=== PATIENT | male | born 1960 | race Caucasian/White ===

== ENCOUNTER → 2018-07-27 09:05 | Outpatient (CLI) | payer OTHER, SELFPAY ==
[2018-07-27 10:19] LABS: ALB/GLOB Ratio 1.1 RATIO (0.9-2.4); AST(SGOT) 31 U/L (15-37); Alanine Aminotransfer ALT/SGPT 38 U/L (16-61); Albumin, Serum 3.9 g/dL (3.2-5.0); Alkaline Phosphatase 55 U/L (45-117); BUN 21 mg/dL (7-18); BUN/Creat Ratio 19.6 RATIO (10-20); Calcium,Total 8.4 mg/dL (8.5-10.1); Cholesterol 184 mg/dL (200); Creatinine, Serum 1.07 mg/dL (0.70-1.30); EST Glomerular Filtration Rate 76 mL/min (>60); Est Glom Filt Rate - Afr Amer 92 mL/min (>60); Globulin 3.5 g/dL (2.2-4.2); Glucose 92 mg/dL (74-106); Protein, Total 7.4 g/dL (6.4-8.2); Triglycerides 94 mg/dL
[2018-07-27 10:20] LABS: Anion Gap 7 (5-15); Chloride 107 mmol/L (98-107); High Density Lipoprotein 46 mg/dL; Potassium 4.2 mmol/L (3.5-5.1); Sodium Level 140 mmol/L (136-145); Very Low Density Lipoprotein 19 mg/dL (5-40)
== END ==
PROVIDERS: Family Provider Internal Medicine; PCP Internal Medicine; Visit Provider Internal Medicine
DX: E78.2 Mixed hyperlipidemia (principal); Z12.5 Encounter for screening for malignant neoplasm of prostate
CPT/HCPCS: 36415; 80053; 80061; 84153; G0103

== ENCOUNTER → 2019-07-02 | Outpatient (CLI) | payer OTHER, SELFPAY ==
[2019-07-02 17:32] LABS: Absolute Lymphocyte Count 1.32 X10^3/uL (0.83-4.51); Basophil# 0.04 X10^3/uL; Basophil% 0.7 % (0-1); Eosinophil# 0.09 X10^3/uL; Eosinophils% 1.5 % (0-5); Hematocrit 42.5 % (40-54); Hemoglobin 14.4 g/dL (13.0-16.5); Lymphocyte # 1.32 X10^3/ul (4.0); Lymphocyte % 22.3 % (19-41); Mean Corp Hgb Conc 33.9 g/dL (32-36); Mean Corpuscular Volume 91.6 fL (80-94); Mean Platelet Vol. 11.8 fl (6.2-12.0); Monocyte% 8.4 % (0-10); NRBC Flagged by Analyzer 0 % (0-5); Neutrophil # 3.96 X10^3/uL (2.7-7.7); Neutrophil % 66.8 % (47-70); Platelet Count 212 K/mm3 (150-450); RBC Distribution Width CV 12.2 % (11.6-14.6); RBC Distribution Width SD 40.2 fl (35.1-43.9); Red Blood Count 4.64 M/mm3 (4.6-6.2); White Blood Count 5.9 K/mm3 (4.4-11.0)
[2019-07-02 18:15] LABS: Hemoglobin A1c 5.2 % (4.2-6.3)
[2019-07-02 18:18] LABS: Vitamin B12 458 pg/mL (211-911)
[2019-07-02 18:26] LABS: ALB/GLOB Ratio 1.3 RATIO (0.9-2.4); AST(SGOT) 26 U/L (15-37); Alanine Aminotransfer ALT/SGPT 39 U/L (16-61); Albumin, Serum 4.1 g/dL (3.2-5.0); Alkaline Phosphatase 61 U/L (45-117); Anion Gap 5 (5-15); BUN 20 mg/dL (7-18); BUN/Creat Ratio 20.2 RATIO (10-20); Calcium,Total 8.4 mg/dL (8.5-10.1); Chloride 108 mmol/L (98-107); Creatinine, Serum 0.99 mg/dL (0.70-1.30); EST Glomerular Filtration Rate 83 mL/min (>60); Est Glom Filt Rate - Afr Amer 100 mL/min (>60); Globulin 3.1 g/dL (2.2-4.2); Glucose 83 mg/dL (74-106); Potassium 4.1 mmol/L (3.5-5.1); Protein, Total 7.2 g/dL (6.4-8.2); Sodium Level 142 mmol/L (136-145); T4 Free Direct 0.83 ng/dL (0.76-1.46); Thyroid Stim Hormone (TSH) 1.21 uIU/mL (0.358-3.74)
== END | disposition home or self-care (01) ==
LOC: BFHLAB 15:28
PROVIDERS: Family Provider Internal Medicine; PCP Internal Medicine; Visit Provider Family Medicine
DX: R20.2 Paresthesia of skin (principal); R53.83 Other fatigue
CPT/HCPCS: 36415; 80053; 82607; 83036; 84439; 84443; 85025

== ENCOUNTER → 2021-01-07 08:03 | Outpatient (CLI) | payer SELFPAY ==
[2021-01-07 09:40] LABS: ALB/GLOB Ratio 1.2 RATIO (0.9-2.4); AST(SGOT) 25 U/L (15-37); Alanine Aminotransfer ALT/SGPT 44 U/L (16-61); Alkaline Phosphatase 67 U/L (45-117); Anion Gap 5 (5-15); BUN 17 mg/dL (7-18); BUN/Creat Ratio 16.5 RATIO (10-20); Calcium,Total 8.9 mg/dL (8.5-10.1); Chloride 106 mmol/L (98-107); Cholesterol 215 mg/dL (200); Creatinine, Serum 1.03 mg/dL (0.70-1.30); EST Glomerular Filtration Rate 79 mL/min (>60); Est Glom Filt Rate - Afr Amer 95 mL/min (>60); Globulin 3.4 g/dL (2.2-4.2); Glucose 101 mg/dL (74-106); High Density Lipoprotein 51 mg/dL; Protein, Total 7.4 g/dL (6.4-8.2); Sodium Level 140 mmol/L (136-145); Triglycerides 89 mg/dL; Very Low Density Lipoprotein 18 mg/dL (5-40)
== END ==
PROVIDERS: PCP Family Medicine; Visit Provider Family Medicine
DX: E78.5 Hyperlipidemia, unspecified (principal)
CPT/HCPCS: 36415; 80053; 80061

== ENCOUNTER 2021-01-27 09:46 | Outpatient (RCR) | payer MEDICARE, SELFPAY ==
[2021-01-27] MEDS: COVID-19 VACC, MRNA(PFIZER)/PF 30 MCG/0.3 ML SYRINGE IM (07:31)
[2021-02-17] MEDS: COVID-19 VACC, MRNA(PFIZER)/PF 30 MCG/0.3 ML SYRINGE IM (07:30)
== END 2021-01-27 23:59 ==
LOC: IMMUN 09:46
PROVIDERS: PCP Family Medicine; Visit Provider Family Medicine
DX: Z23 Encounter for immunization (principal)
CPT/HCPCS: 0001A; 0002A; 91300

== ENCOUNTER → 2021-03-11 | Outpatient (CLI) | payer SELFPAY ==
[2021-03-11 17:18] LABS: Body Fluid QC Type(s) BF6Q; CRYSTALS, BODY FLUID Other, see comment; Source- Body Fluid SYNOVIAL
[2021-03-14 13:34] LABS: Pathologist Review Reviewed
== END | disposition home or self-care (01) ==
LOC: LABSPEC 15:23
PROVIDERS: PCP Family Medicine; Referring Provider Family Medicine; Visit Provider Family Medicine
DX: M25.462 Effusion, left knee (principal)
CPT/HCPCS: 87070; 87075; 87205; 89060

== ENCOUNTER → 2021-05-26 09:12 | Outpatient (CLI) | payer SELFPAY ==
--- NOTE | 2021-05-26 09:14 | EKG12_ITS ---
Test Reason : PRE OP Blood Pressure : / mmHG Vent. Rate : 076 BPM Atrial Rate : 076 BPM P-R Int : 150 ms QRS Dur : 082 ms QT Int : 358 ms P-R-T Axes : 038 002 033 degrees QTc Int : 402 ms Normal sinus rhythm Normal ECG Confirmed by LEXI HARRELL, MARIANO ([id number]), photographic editor CANDACE LOMAS ([id number]) on 05/27/2021 9:28:16 AM Referred By: Pan Chambers Confirmed By:AMMY ELLIOTT MD
[2021-05-26 10:04] LABS: Hematocrit 41.1 % (40-54); Hemoglobin 13.5 g/dL (13.0-16.5); Mean Corp Hgb Conc 32.8 g/dL (32-36); Mean Corpuscular Hgb 30.4 pg (27.0-32.0); Mean Corpuscular Volume 92.6 fL (80-94); Mean Platelet Vol. 10.7 fl (6.2-12.0); Platelet Count 245 K/mm3 (150-450); RBC Distribution Width CV 12.5 % (11.6-14.6); RBC Distribution Width SD 42.7 fl (35.1-43.9); Red Blood Count 4.44 M/mm3 (4.6-6.2); White Blood Count 3.7 K/mm3 (4.4-11.0)
[2021-05-26 10:40] LABS: Anion Gap 6 (5-15); BUN 13 mg/dL (7-18); Calcium,Total 8.7 mg/dL (8.5-10.1); Chloride 105 mmol/L (98-107); EST Glomerular Filtration Rate 82 mL/min (>60); Est Glom Filt Rate - Afr Amer 99 mL/min (>60); Glucose 95 mg/dL (74-106); Potassium 3.7 mmol/L (3.5-5.1); Sodium Level 139 mmol/L (136-145)
== END ==
PROVIDERS: PCP Family Medicine; Referring Provider Physician Assistant; Visit Provider Physician Assistant
DX: Z01.818 Encounter for other preprocedural examination (principal)
CPT/HCPCS: 36415; 80048; 85027; 93005

== ENCOUNTER → 2022-03-31 | Outpatient (CLI) | payer SELFPAY ==
[2022-03-31 15:46] LABS: ALB/GLOB Ratio 1.5 RATIO (0.9-2.4); AST(SGOT) 27 U/L (15-37); Alanine Aminotransfer ALT/SGPT 43 U/L (16-61); Albumin, Serum 4.4 g/dL (3.2-5.0); Alkaline Phosphatase 66 U/L (45-117); Anion Gap 4 (5-15); BUN 14 mg/dL (7-18); BUN/Creat Ratio 16.5 RATIO (10-20); Calcium,Total 9.1 mg/dL (8.5-10.1); Chloride 106 mmol/L (98-107); Cholesterol 180 mg/dL (200); Creatinine, Serum 0.85 mg/dL (0.70-1.30); EST Glomerular Filtration Rate 98 mL/min (>60); Est Glom Filt Rate - Afr Amer 119 mL/min (>60); Glucose 95 mg/dL (74-106); High Density Lipoprotein 70 mg/dL; Potassium 4.1 mmol/L (3.5-5.1); Protein, Total 7.4 g/dL (6.4-8.2); Sodium Level 138 mmol/L (136-145); Triglycerides 71 mg/dL; Very Low Density Lipoprotein 14 mg/dL (5-40)
== END | disposition home or self-care (01) ==
PROVIDERS: PCP Family Medicine; Referring Provider Family Medicine; Visit Provider Family Medicine
DX: E78.5 Hyperlipidemia, unspecified (principal)
CPT/HCPCS: 36415; 80053; 80061

== ENCOUNTER 2022-10-14 11:10 | Emergency (ER) | payer MEDICAID, SELFPAY ==
[2022-10-14 11:11] VITALS: BP 153/133; PULSE 100; RESP 16; TEMP 36.4; O2SAT 99; BMI 21.7
[2022-10-14 11:15] VITALS: BP 179/99; PULSE 100; RESP 18; O2SAT 99
--- NOTE | 2022-10-14 11:17 | EKG12_ITS ---
Test Reason : CP Blood Pressure : / mmHG Vent. Rate : 098 BPM Atrial Rate : 098 BPM P-R Int : 152 ms QRS Dur : 084 ms QT Int : 340 ms P-R-T Axes : 049 003 051 degrees QTc Int : 434 ms Normal sinus rhythm Normal ECG Confirmed by KARLY HARRELL, GERHARD ([id number]), health editor CANDACE LOMSA ([id number]) on 10/17/2022 12:19:25 PM Referred By: BRAXTON Confirmed By:GERHARD BRANDT MD
--- NOTE | 2022-10-14 11:17 | RAD_ITS ---
EXAM: XR CHEST, 1 VIEW CLINICAL INDICATION: chest pain TECHNIQUE: Frontal view of the chest. This report was created using [employer] report generation technology. COMPARISON: None. FINDINGS: LUNGS AND PLEURAL SPACES: Unremarkable. No consolidation or edema. No pneumothorax. No effusion. HEART: Unremarkable. Cardiac silhouette not enlarged. MEDIASTINUM: Central airways and mediastinal contour are unremarkable. BONES/JOINTS: Unremarkable. SOFT TISSUES: Unremarkable. RAD/Chest 1 View (Portable) IMPRESSION: No radiographic evidence of acute cardiopulmonary disease. Electronically Signed: Ok Ulrich MD at 11:57 EST ,
--- NOTE | 2022-10-14 11:17 | ED.VIS.CHEST ---
HPI History of Present Illness Chief Complaint: Chest Pain Informant: patient Narrative Narrative: 62-year-old male presenting to the emergency department for the evaluation of chest pain. He describes a pressure in his chest. Its been more pronounced over the past 3 days and when it comes tends to stay for hours. He is currently experiencing it. He notes that his brother October 06 of a heart attack and and that is when he started to notice this but at first he thought it was probably indigestion but now does not know. [facility] Medical History (Updated 10/14/22 @ 14:[address] Mick Oro DO) High cholesterol Torn meniscus Home Medications celecoxib 200 mg capsule 200 mg PO BID 10/14/22 [History Last Taken Unknown] gabapentin 100 mg capsule 100 mg PO BID 10/14/22 [History Last Taken Unknown] lisinopril 10 mg tablet 10 mg PO DAILY #30 tabs 10/14/22 [Rx Last Taken Unknown] pantoprazole 40 mg tablet,delayed release (Protonix) 40 mg PO DAILY #30 tabs 10/14/22 [Rx Last Taken Unknown] simvastatin 20 mg tablet 20 mg PO QHS 10/14/22 [History Last Taken Unknown] Allergy/AdvReac Type Severity Reaction Status Date / Time Penicillins [PCN] Allergy Rash Verified 10/14/22 11:11 Family History (Updated 10/14/22 @ 11:[address] Mick Oro DO) Other CAD (coronary artery disease) Diabetes Heart disease Hypertension Sudden cardiac Social History Smoking Status: Former smoker ROS ROS ED Constitutional Constitutional ED: Denies chills or weight loss Eyes Eyes: Denies change in vision or diplopia ENT ENT ED: Denies ear pain, rhinorrhea or sore throat Cardiovascular Cardiovascular: Reports as per HPI and chest pain; Denies orthopnea, palpitations or racing heartbeat Respiratory/Chest Respiratory/Chest: Denies cough, dyspnea or orthopnea Gastrointestinal Gastrointestinal: Denies abdominal pain, diarrhea, nausea or vomiting Genitourinary Genitourinary ED: Denies dysuria, hematuria or urinary frequency Musculoskeletal Musculoskeletal: Denies arthralgias or myalgias Integumentary Denies abscess or rash Neurologic Neurologic: Denies headache(s) or weakness Psychiatric Psychiatric: Denies anxiety, depression, suicidal ideation or suicidal thoughts Endocrine Endocrinology: Denies polydipsia, polyphagia or polyuria Allergic/Immunologic Allergic/Immunologic ED: Denies mouth swelling, tongue swelling or urticaria EXAM Physical Exam Const Vital Signs: 10/14/22 11:11 10/14/22 11:15 10/14/22 11:16 Temperature 97.5 F L Temperature Source Temporal Pulse Rate 100 100 Respiratory Rate 16 18 Respiratory Effort Normal Non-Labored Blood Pressure 153/133 H 179/99 H Blood Pressure Mean 139 125 Pulse Ox 99 99 Oxygen Delivery Method Room Air Room Air 10/14/22 12:12 10/14/22 14:07 Temperature Temperature Source Pulse Rate 84 76 Respiratory Rate 12 16 Respiratory Effort Blood Pressure 153/111 H 145/96 H Blood Pressure Mean 125 112 Pulse Ox 98 98 Oxygen Delivery Method Room Air Room Air Positive well nourished and well developed General Appearance ED: well developed HEENT Reports normocephalic, head/scalp atraumatic and moist mucous membranes Eyes PERRL and EOMs intact bilaterally Neck no lymphadenopathy, supple and no JVD Resp normal respiratory effort and clear to auscultation bilaterally Cardio regular rate, regular rhythm and no murmurs GI normal to inspection, nondistended, normoactive bowel sounds and non-tender Palpation: soft Back/Spine no CVA tenderness and normal ROM Extremity normal to inspection General Extremety ED: Negative for edema General Extremity: Negative for edema Neuro oriented x3 and CN's II-XII intact bilaterally Sensorium / Orientation: alert Motor Exam: strength 5/5 throughout Psych mental status grossly normal Mood & Affect: Negative for depressed or tearful Skin no rashes or lesions noted and no wounds Heart Score History: Moderately Suspicious ECG: Normal Age: >45 - <65 years Risk Factors: 1 or 2 Risk Factors Troponin: </= Normal Limit Score: 3 MDM MDM MDM Narrative Medical decision making narrative: My interpretation of the chest x-ray is no acute process. White count is 6.2 with a hemoglobin 14.8. D-dimer is negative. Troponin is negative BMP is normal except for glucose of 117. He is remained in a normal sinus rhythm on the monitor. His EKG is no ACS finding. And that is obtained while having symptoms. Delta troponin is 6. He describes it as a pressure that gets burning at times and I wonder if this could be esophagitis today is very reasonable would put him on some Protonix. His blood pressures he tells me typically 150s to 160s in the mornings 130s to 140s in the afternoon. He is aware, start him on some lisinopril. The patient needs to follow-up with his primary care doctor to discuss further cardiac testing return if worsening Lab Data Attestation: I reviewed the patient's lab results. Labs: Laboratory Results - last 24 hr 10/14/22 10/14/22 10/14/22 11:15 11:15 11:15 WBC 6.2 RBC 4.80 Hgb 14.8 Hct 44.3 MCV 92.3 MCH 30.8 MCHC 33.4 RDW Std Deviation 38.9 RDW Coeff of Harinder 11.5 L Plt Count 277 MPV 10.5 Immature Gran % (Auto) 0.200 Neut % (Auto) 68.5 Lymph % (Auto) 20.0 Kemper % (Auto) 10.2 H Eos % (Auto) 0.5 Baso % (Auto) 0.6 Absolute Neuts (auto) 4.3 Absolute Lymphs (auto) 1.24 Nucleated RBC % 0 D-Dimer Quant (PE/DVT) < 0.27 L Sodium 140 Potassium 3.6 Chloride 104 Carbon Dioxide 31.0 Anion Gap 5 BUN 16 Creatinine 0.90 Estim Creat Clear Calc 87.16 Est GFR (MDRD) Af Amer 110 Est GFR (MDRD) Non-Af 91 BUN/Creatinine Ratio 17.7 Glucose 117 H Calcium 8.9 Troponin I High Sens 5 10/14/22 13:15 WBC RBC Hgb Hct MCV MCH MCHC RDW Std Deviation RDW Coeff of Harinder Plt Count MPV Immature Gran % (Auto) Neut % (Auto) Lymph % (Auto) Kemper % (Auto) Eos % (Auto) Baso % (Auto) Absolute Neuts (auto) Absolute Lymphs (auto) Nucleated RBC % D-Dimer Quant (PE/DVT) Sodium Potassium Chloride Carbon Dioxide Anion Gap BUN Creatinine Estim Creat Clear Calc Est GFR (MDRD) Af Amer Est GFR (MDRD) Non-Af BUN/Creatinine Ratio Glucose Calcium Troponin I High Sens 6 Radiography Diagnostic Testing: Clinical Impression(s) from Imaging Studies Chest X-Ray 10/14/22 11:17 IMPRESSION: No radiographic evidence of acute cardiopulmonary disease. Electronically Signed: Ok Ulrich MD at 11:57 EST , EKG Initial EKG: Attestation: I personally reviewed and interpreted this EKG as follows: Comments: Normal sinus rhythm ventricular rate of 98 bpm Discharge Plan Triage Chief Complaint: Chest Pain ED Provider: Mick Oro Dx/Rx/DC Orders Clinical Impression: Chest pain, Hypertension Instructions: ED Chest Pain, Uncertain Cause Prescriptions: New lisinopril 10 mg tablet 10 mg PO DAILY Qty: 30 0RF pantoprazole [Protonix] 40 mg tablet,delayed release (DR/EC) 40 mg PO DAILY Qty: 30 0RF No Action celecoxib 200 mg capsule 200 mg PO BID Label Comments: TAKE 1 CAPSULE BY MOUTH EVERY DAY simvastatin 20 mg tablet 20 mg PO QHS Label Comments: TAKE 1 TABLET BY MOUTH EVERY DAY gabapentin 100 mg capsule 100 mg PO BID Label Comments: TAKE 1 CAPSULE BY MOUTH up to THREE TIMES DAILY Primary Care Provider: Malachi Dumont Referrals: Malachi Dumont MD [Primary Care Provider] - As soon as possible (Please discuss cardiac stress testing with your doctor) Activity Restrictions/Additional Instructions: As we did we will be placing you on a low-dose blood pressure medication and a antacid. Please continue to monitor your blood pressure and take those results with you to your doctors appointment. Disposition Disposition: Home, Self Care
[2022-10-14] MEDS: Aspirin 81 MG TAB.CHEW 324 MG PO (11:24)
[2022-10-14 11:29] LABS: Absolute Lymphocyte Count 1.24 X10^3/uL (0.83-4.51); Absolute Neutrophil Count 4.3 X10^3/uL (2.0-7.7); Basophil# 0.04 X10^3/uL; Basophil% 0.6 % (0-1); Eosinophil# 0.03 X10^3/uL; Eosinophils% 0.5 % (0-5); Hematocrit 44.3 % (40-54); Hemoglobin 14.8 g/dL (13.0-16.5); Lymphocyte # 1.24 X10^3/ul (0.83-4.51); Mean Corp Hgb Conc 33.4 g/dL (32-36); Mean Corpuscular Hgb 30.8 pg (27.0-32.0); Mean Corpuscular Volume 92.3 fL (80-94); Mean Platelet Vol. 10.5 fl (6.2-12.0); Monocyte# 0.63 X10^3/uL; Monocyte% 10.2 % (0-10); NRBC Flagged by Analyzer 0 % (0-5); Neutrophil # 4.25 X10^3/uL (2.7-7.7); Neutrophil % 68.5 % (47-70); Platelet Count 277 K/mm3 (150-450); RBC Distribution Width CV 11.5 % (11.6-14.6); RBC Distribution Width SD 38.9 fl (35.1-43.9); White Blood Count 6.2 K/mm3 (4.4-11.0)
[2022-10-14 11:48] LABS: D-Dimer Quantitative (DVT/PE) < 0.27 FEU/ug/m (0.27-0.49)
[2022-10-14 11:50] LABS: Anion Gap 5 (5-15); BUN 16 mg/dL (7-18); BUN/Creat Ratio 17.7 RATIO (10-20); Calcium,Total 8.9 mg/dL (8.5-10.1); Chloride 104 mmol/L (98-107); EST Glomerular Filtration Rate 91 mL/min (>60); Est Glom Filt Rate - Afr Amer 110 mL/min (>60); Estimated Creatinine Clearance 87.16 ml/min; Glucose 117 mg/dL (74-106); Potassium 3.6 mmol/L (3.5-5.1); Sodium Level 140 mmol/L (136-145); Troponin-I HS (w/2H Reflex) 5 pg/mL (3.0-78.0)
[2022-10-14 12:12] VITALS: BP 153/111; PULSE 84; RESP 12; O2SAT 98
[2022-10-14 13:26] LABS: Reflex Troponin-HS? (from REC) Y
[2022-10-14 14:07] VITALS: BP 145/96; PULSE 76; RESP 16; O2SAT 98
[2022-10-14 14:16] LABS: Troponin-I HS 6 pg/mL (3.0-78.0)
== END 2022-10-14 14:42 | disposition home or self-care (01) ==
PROVIDERS: Emergency Provider Emergency Medicine; PCP Family Medicine; Visit Provider Emergency Medicine
DX: R07.9 Chest pain, unspecified (principal); I10 Essential (primary) hypertension; Z87.891 Personal history of nicotine dependence; E78.00 Pure hypercholesterolemia, unspecified; Z79.899 Other long term (current) drug therapy
CPT/HCPCS: 71045; 80048; 84484; 85025; 85379; 93005; 99285; A4216

== ENCOUNTER → 2022-11-01 | Outpatient (CLI) | payer MEDICAID, SELFPAY ==
--- NOTE | 2022-11-01 11:42 | STRESSREP_ITS ---
Stress Test Report Pharmacologic myocardial perfusion stress test. 62-year-old man with a history of chest pain Resting EKG demonstrates sinus rhythm with a rate of 75 bpm. Resting blood pressure is 134/78 mmHg. 0.4 mg of regadenoson was infused per usual protocol followed by rapid intravenous saline flush injection. Continuous EKG monitoring was performed. The maximum heart rate was 104 bpm which was 65% of max impacted heart rate the maximum workload was 1 metabolic equivalent. At rest there were no ST or T wave changes noted to suggest ischemia and at peak infusion nonspecific ST changes were noted with did not meet the criteria for ischemia. Occasional premature ventricular complexes noted. No clinical angina is noted. The final blood pressure was 124/72 mmHg. Myocardial perfusion protocol. 11.5 mCi of technetium 99m sestamibi was injected at rest. 0.4 mg of regadenoson was infused per usual protocol. At peak infusion 35.2 mCi of te chnetium 99m sestamibi was injected stress images were obtained stress and rest images were reconstructed and compared in the short axis vertical long and horizontal long axis. Gated images were also obtained. Perfusion SPECT analysis: Review of the stress images demonstrate normal uptake of tracer noted in all areas of the myocardium. The resting images similar demonstrated normal uptake of tracer noted in all areas of the myocardium. No areas of reversibility are noted to suggest ischemia and no previous infarct is noted. Gated SPECT analysis: The gated ejection fraction is 64. Conclusion: Normal pharmacologic myocardial perfusion stress test. Preserved ejection fraction.
== END | disposition home or self-care (01) ==
LOC: CVS 06:14
PROVIDERS: PCP Family Medicine; Referring Provider Family Medicine; Visit Provider Family Medicine
DX: R07.9 Chest pain, unspecified (principal)
CPT/HCPCS: 78452; 93017; A9500; A4216; J2785

== ENCOUNTER → 2022-11-24 | Outpatient (CLI) | payer MEDICAID, SELFPAY ==
[2022-11-24 15:43] LABS: Anion Gap 2 (5-15); BUN 16 mg/dL (7-18); BUN/Creat Ratio 17.3 RATIO (10-20); Calcium,Total 9.2 mg/dL (8.5-10.1); Chloride 106 mmol/L (98-107); Creatinine, Serum 0.92 mg/dL (0.70-1.30); EST Glomerular Filtration Rate 89 mL/min (>60); Est Glom Filt Rate - Afr Amer 107 mL/min (>60); Glucose 99 mg/dL (74-106); Potassium 4.2 mmol/L (3.5-5.1); Sodium Level 139 mmol/L (136-145)
== END | disposition home or self-care (01) ==
LOC: LAB 14:41
PROVIDERS: PCP Family Medicine; Visit Provider Internal Medicine Cardiovascular Disease
DX: Z01.810 Encounter for preprocedural cardiovascular examination (principal); R07.9 Chest pain, unspecified; E78.2 Mixed hyperlipidemia; I10 Essential (primary) hypertension
CPT/HCPCS: 36415; 80048

== ENCOUNTER → 2022-11-28 | Outpatient (CLI) | payer MEDICAID, SELFPAY ==
--- NOTE | 2022-11-28 13:45 | ECHOD_ITS ---
Reason For Study: Chest Pain Procedure This was a 2D Doppler, Color Flow transthoracic echocardiogram. The exam was of adequate technical quality. Exam performed in department. Left Ventricle Normal LV size. Left ventricular systolic function is normal. The estimated ejection fraction is 65 %. No evidence for diastolic dysfunction. No regional wall motion abnormalities noted. Right Ventricle Normal RV size. Normal systolic function. Atria Normal left atrium. Normal right atrium. No doppler evidence for ASD. Mitral Valve There is no mitral annular calcification. Mild diffuse mitral valve thickening. Equivocal mitral valve prolapse. Mild (1+) eccentric mitral valve insufficiency. Tricuspid Valve Normal tricuspid valve. Mild tricuspid valve insufficiency. Right ventricular systolic pressure estimated to be 22 mmHg. Aortic Valve Trisinus/trileaflet aortic valve. Normal aortic valve. Pulmonic Valve The pulmonic valve is not well visualized. Great Vessels Normal sized aortic root. Pericardium/Pleural No pericardial effusion. MMode/2D Measurements & Calculations LVIDd: 4.3 cm IVSd: 0.93 cm Ao root diam: 3.7 cm LVIDs: 2.7 cm LVPWd: 1.0 cm LA dimension: 2.9 cm RVDd: 4.1 cm FS: 37.2 % LAV(MOD-bp): 39.1 ml LA A4 area: 12.1 cm2 RA A4 area: 12.5 cm2 LAV(MOD-bp) Indexed: 20.8 ml/m2 LAV(MOD-sp2): 45.7 ml LAV(MOD-sp4): 28.8 ml Time Measurements MV dec time: 0.24 sec Doppler Measurements & Calculations MV E max chris: 44.4 cm/sec Lat Peak E' Chris: 9.0 cm/sec Med Peak E' Chris: 5.8 cm/sec MV A max chris: 65.4 cm/sec E/E' lat: 4.9 E/E' med: 7.7 MV E/A: 0.68 MV V2 max: 73.2 cm/sec MV P1/2t max chris: 50.4 cm/sec Ao V2 max: 130.9 cm/sec MV max P.1 mmHg MV P1/2t: 67.3 msec Ao max P.9 mmHg MV V2 mean: 40.5 cm/sec MV dec slope: 219.6 cm/sec2 Ao V2 mean: 94.7 cm/sec MV mean P.77 mmHg MVA(P1/2t): 3.3 cm2 Ao mean P.0 mmHg MV V2 VTI: 16.0 cm Ao V2 VTI: 23.5 cm AV (velocity ratio): 0.76 LV V1 max: 107.7 cm/sec PA V2 max: 90.2 cm/sec TR max chris: 215.9 cm/sec LV V1 max P.6 mmHg PA V2 mean: 61.8 cm/sec TR max P.7 mmHg LV V1 mean P.6 mmHg LV V1 mean: 76.7 cm/sec LV V1 VTI: 17.9 cm ECHO/Echo Complete Interpretation Summary Left ventricular systolic function is normal. The estimated ejection fraction is 65 %. Mild diffuse mitral valve thickening. Equivocal mitral valve prolapse. Mild (1+) eccentric mitral valve insufficiency. Mild tricuspid valve insufficiency. Right ventricular systolic pressure estimated to be 22 mmHg. No evidence for diastolic dysfunction. Ordering Physician: Edwin Canas Referring Physician: Edwin Canas Performed By: Dino Henderson RCS
== END | disposition home or self-care (01) ==
LOC: CVS 13:44
PROVIDERS: PCP Family Medicine; Referring Provider Internal Medicine Cardiovascular Disease; Visit Provider Internal Medicine Cardiovascular Disease
DX: Z01.810 Encounter for preprocedural cardiovascular examination (principal); R07.9 Chest pain, unspecified; E78.2 Mixed hyperlipidemia; I10 Essential (primary) hypertension
CPT/HCPCS: 93306

== ENCOUNTER → 2022-12-01 | Outpatient (CLI) | payer MEDICAID, SELFPAY ==
--- NOTE | 2022-12-01 13:20 | CT_ITS ---
STUDY: CT CHEST WITHOUT CONTRAST. Cardiac over read examination. REASON FOR EXAM: Male, 62 years old. CP RADIATION DOSAGE (If Supplied By Facility): CTDIvol = ( 25.62 ) mGy, DLP = ( 1559.30 ) mGycm TECHNIQUE: Transaxial imaging was performed without the administration of intravenous contrast material. Individualized dose optimization techniques were used for this CT. COMPARISON: No relevant priors. FINDINGS: CHEST The lungs are normal. There is no demonstrated pleural abnormality. There are calcifications of the coronary arteries. Normal mediastinum. Normal hilar regions. Normal unenhanced pulmonary arteries. Normal aorta arch and descending thoracic aorta. Normal osseous structures. There is no demonstrated abnormality of the visualized upper abdomen. IMPRESSION: Coronary artery calcification. The visualized lungs are unremarkable. Electronically Signed: Jose Martinez MD at 15:11 RUST , STUDY: CT CHEST WITHOUT CONTRAST. Cardiac or renal examination. REASON FOR EXAM: Male, 62 years old. CP RADIATION DOSAGE (If Supplied By Facility): CTDIvol = ( 25.62 ) mGy, DLP = ( 1559.30 ) mGycm TECHNIQUE: Transaxial imaging was performed without the administration of intravenous contrast material. Individualized dose optimization techniques were used for this CT. COMPARISON: No relevant priors. FINDINGS: CHEST The lungs are normal. There is no demonstrated pleural abnormality. There are calcifications of the coronary arteries. Normal mediastinum. Normal hilar regions. Normal unenhanced pulmonary arteries. Normal aorta arch and descending thoracic aorta. Normal osseous structures. There is no demonstrated abnormality of the visualized upper abdomen. CT/Limited Chest CT Cardiac Only IMPRESSION: Coronary artery calcification. The lungs are clear. Electronically Signed: Jose Martinez MD at 15:13 EST ,
[2022-12-01 14:01] VITALS: BP 127/84; PULSE 60; RESP 14; O2SAT 100; BMI 21.3
[2022-12-01 14:20] VITALS: BP 127/84; PULSE 63
[2022-12-01] MEDS: Nitroglycerin SL (ED/IMG/CATH) 0.4 MG TABLET SL (14:20)
[2022-12-01 14:24] VITALS: BP 116/76; PULSE 71; RESP 14; O2SAT 97
--- NOTE | 2022-12-01 17:17 | CA.SCORE ---
Calcium Scoring Date of Study:: 12/01/22 Indications Indications: Chest Pain Coronary Calcium Scoring: High-resolution Computed Tomographic imaging of the chest was performed on 12/01/2022 with particular attention paid to the coronary arteries. Images from the examination were analyzed for the presence and extent of coronary artery calcification , using coronary calcium quantification software. The patient tolerated the procedure well and there were no complications. The results of the coronary calcification analysis are provided below. Findings Coronary Artery Left Main (LM): 3 Left Anterior Descending (LAD): 3.38 Left Circumflex (LCX): 2.63 Right Coronary Artery (RCA): 0 Total Agatston Score: 9.01 Percentile Ranking: According to prepublished reference tables less than 10% of patients of the same gender and/or similar age had the same and/or lower scores. Calcium Scoring Interpretation: 0 No identifiable atherosclerotic plaque. Very low cardiovascular disease risk. <5% chance of presence coronary artery disease A Negative Examination 1-10 Minimal Plaque burden. Significant coronary artery disease very unlikely. 11-100 Mild plaque burden. Likely mild or minimal coronary atherosclerosis. 101-400 Moderate plaque burden Moderate non-obstructive coronary artery disease highly likely. Over 400 Extensive plaque burden. High likelihood of at least one significant coronary stenosis (>50% diameter) Calcium Score: 1 -10 Significant coronary artery disease very unlikely Conclusion: Continue cardiovascular risk factor evaluation and care as deemed appropriate. This note was generated using a voice recognition system and there may be incorrect words, spelling or punctuation that were not noted when reviewing the office note prior to saving.
--- NOTE | 2022-12-01 17:20 | CCTA.WCONT ---
CCTA w/Cont Coronary Arteries Date of Study:: 12/01/22 Chest Pain: Pre Operative Evaluation Consent:: Per Patient High-resolution Computed Tomographic imaging of the chest was performed on 12/01/2022 with particular attention paid to the coronary arteries. Images from the examination were analyzed for the presence and extent of coronary artery calcification , using coronary calcium quantification software and for the extent of any underlying atherosclerotic coronary artery disease. The patient tolerated the procedure well and there were no complications. The results of the coronary calcification analysis are provided below.? LEFT MAIN CORONARY ARTERY: The left main coronary artery is a large vessel giving rise to the left anterior descending coronary artery, a left circumflex coronary artery, and what appears to be an intermediate ramus coronary artery. The left main coronary artery is patent and demonstrates mild eccentric nonobstructive calcified plaque. Otherwise, the left main coronary artery appears to be angiographically within normal limits LEFT ANTERIOR DESCENDING CORONARY ARTERY: The left anterior descending is a large vessel that courses to the LV apex. It demonstrates mid mild eccentric nonobstructive calcified plaque. Otherwise, the left anterior descending coronary artery appears to be angiographically within normal limits. LEFT CIRCUMFLEX CORONARY ARTERY: The left circumflex coronary artery is a moderate sized vessel giving rise to an OM system. The left circumflex coronary artery appears to be angiographically within normal limits RIGHT CORONARY ARTERY: The right coronary artery is a large vessel which appears to give rise to a right PDA system. The right coronary artery appears to be angiographically within normal limits. THORACIC AORTA: The thoracic aorta demonstrates the appearance of mild eccentric nonobstructive calcified plaque in the area the aortic root and the descending thoracic aorta. PULMONARY ARTERY: The main pulmonary artery and proximal portions of the right and left pulmonary artery appear to be patent with no obvious filling defects. LEFT ATRIUM/APPENDAGE: The left atrial appendage appears to be patent with no obvious filling defects MITRAL VALVE: The mitral valve appears to be bileaflet structure. AORTIC VALVE: The aortic valve appears to be a trileaflet structure. LEFT VENTRICLE: The left ventricle appears to demonstrate grossly normal left ventricular size, wall motion, and systolic function. The left ventricular ejection fraction was calculated at 49%. CORONARY CALCIUM SCORE: A coronary calcium score was obtained and reported at 9.01. This is compatible with minimal plaque burden and the likelihood of significant underlying CAD being considered unlikely. This note was generated using a voice recognition system and there may be incorrect words, spelling or punctuation that were not noted when reviewing the office note prior to saving.
== END | disposition home or self-care (01) ==
LOC: CT 13:18
PROVIDERS: PCP Family Medicine; Referring Provider Internal Medicine Cardiovascular Disease; Visit Provider Internal Medicine Cardiovascular Disease
DX: Z01.818 Encounter for other preprocedural examination (principal); R07.9 Chest pain, unspecified; E78.2 Mixed hyperlipidemia; I10 Essential (primary) hypertension
CPT/HCPCS: 75571; 75574; 76380; Q9967; A4216

== ENCOUNTER → 2023-02-02 | Outpatient (CLI) | payer BC, SELFPAY ==
--- NOTE | 2023-02-02 10:46 | ART_ITS ---
Reason For Study: Leg pain Procedure A bilateral lower extremity continuous wave Doppler with analog waveform analysis,segmental pressures,and ankle brachial indexes without exercise. Left Segmental Pressures Left brachial= 144mmHg. Left posterior tibial artery = 162mmHg. Left dorsalis pedis artery = 155mmHg. The left dorsalis pedis waveforms are triphasic. The left posterior tibial artery waveforms are triphasic. Right Segmental Pressures Right brachial= 149mmHg. Right posterior tibial artery = 168mmHg. Right dorsalis pedis artery = 159mmHg. The right dorsalis pedis waveforms are triphasic. The right posterior tibial artery waveforms are triphasic. Indices The right ankle brachial index by the dorsalis pedis is 1.07. The right ankle brachial index by the posterior tibial artery is 1.13. The left ankle brachial index by the dorsalis pedis is 1.04. The left ankle brachial index by the posterior tibial artery is 1.09. VL/Lower Ext Art Exam w/o Exercis Interpretation Summary Right ANGELI 1.13, normal. Doppler/PVR waveforms of the right leg normal at rest. Left ANGELI 1.09, normal. Doppler/PVR waveforms of the left leg normal at rest. Ordering Physician: Edwin Canas Performed By: Ana Salcido RVT
== END | disposition home or self-care (01) ==
PROVIDERS: Referring Provider Internal Medicine Cardiovascular Disease; Visit Provider Internal Medicine Cardiovascular Disease
DX: I73.9 Peripheral vascular disease, unspecified (principal); M79.606 Pain in leg, unspecified
CPT/HCPCS: 93923

== ENCOUNTER → 2023-06-01 | Outpatient (CLI) | payer BC, SELFPAY ==
[2023-06-01 08:59] LABS: Absolute Lymphocyte Count 1.33 X10^3/uL (0.83-4.51); Absolute Neutrophil Count 2.6 X10^3/uL (2.0-7.7); Basophil# 0.04 X10^3/uL; Basophil% 0.9 % (0-1); Eosinophil# 0.07 X10^3/uL; Eosinophils% 1.6 % (0-5); Hematocrit 43.2 % (40-54); Hemoglobin 14.3 g/dL (13.0-16.5); Lymphocyte # 1.33 X10^3/ul (0.83-4.51); Lymphocyte % 30.1 % (19-41); Mean Corp Hgb Conc 33.1 g/dL (32-36); Mean Corpuscular Hgb 30.6 pg (27.0-32.0); Mean Corpuscular Volume 92.3 fL (80-94); Mean Platelet Vol. 10.7 fl (6.2-12.0); Monocyte# 0.42 X10^3/uL; Monocyte% 9.5 % (0-10); NRBC Flagged by Analyzer 0 % (0-5); Neutrophil # 2.55 X10^3/uL (2.7-7.7); Neutrophil % 57.7 % (47-70); Platelet Count 231 K/mm3 (150-450); RBC Distribution Width CV 12.3 % (11.6-14.6); RBC Distribution Width SD 41.5 fl (35.1-43.9); Red Blood Count 4.68 M/mm3 (4.6-6.2); White Blood Count 4.4 K/mm3 (4.4-11.0)
[2023-06-01 09:08] LABS: Vitamin B12 293 pg/mL (211-911)
[2023-06-01 09:09] LABS: ALB/GLOB Ratio 1.2 RATIO (0.9-2.4); AST(SGOT) 18 U/L (15-37); Alanine Aminotransfer ALT/SGPT 29 U/L (16-61); Albumin, Serum 3.8 g/dL (3.2-5.0); Alkaline Phosphatase 63 U/L (45-117); Anion Gap 4 (5-15); BUN 19 mg/dL (7-18); BUN/Creat Ratio 21.5 RATIO (10-20); Calcium,Total 8.6 mg/dL (8.5-10.1); Chloride 105 mmol/L (98-107); Cholesterol 169 mg/dL (200); Creatinine, Serum 0.88 mg/dL (0.70-1.30); EST Glomerular Filtration Rate 93 mL/min (>60); Est Glom Filt Rate - Afr Amer 113 mL/min (>60); Globulin 3.2 g/dL (2.2-4.2); Glucose 92 mg/dL (74-106); High Density Lipoprotein 60 mg/dL; Sodium Level 138 mmol/L (136-145); T4 Free Direct 0.79 ng/dL (0.76-1.46); Thyroid Stim Hormone (TSH) 0.87 uIU/mL (0.358-3.74); Triglycerides 94 mg/dL; Very Low Density Lipoprotein 19 mg/dL (5-40)
== END | disposition home or self-care (01) ==
LOC: LAB 07:32
PROVIDERS: PCP Family Medicine; Referring Provider Family Medicine; Visit Provider Family Medicine
DX: Z00.00 Encounter for general adult medical examination without abnormal findings (principal); R53.83 Other fatigue
CPT/HCPCS: 36415; 80053; 80061; 82607; 84439; 84443; 85025

== ENCOUNTER 2023-07-10 08:21 | Day surgery (SDC) | payer MEDICAID, SELFPAY ==
[2023-07-10 08:45] VITALS: BP 151/96; PULSE 93; RESP 16; TEMP 36.6; O2SAT 100; BMI 20.9
[2023-07-10] MEDS: Lactated Ringers 1,000 ML 15 ML IV (08:51)
--- NOTE | 2023-07-10 09:44 | HP.PCM_ITS ---
HPI - General HPI Narrative THOMAS BROWNE, is a 63 M who presents for screening colonoscopy. His last colonoscopy was 10 years ago and was normal. Patient denies any abdominal pain or blood in the stool. FORMERLY [facility], [facility] Medical History (Updated 07/04/23 @ 09:14 by Paola Reed) Arthritis Cardiology follow-up encounter Diverticulosis Essential hypertension Excessive bleeding Former smoker High cholesterol History of echocardiogram History of IBS History of stress test IBS (irritable bowel syndrome) Mixed hyperlipidemia Preoperative cardiovascular examination Seasonal allergies Torn meniscus Home Medications lisinopril 10 mg tablet 10 mg PO DAILY #30 tabs 10/14/22 [Rx Last Taken 07/10/23] simvastatin 20 mg tablet 20 mg PO QHS 10/14/22 [History Last Taken Unknown] celecoxib 200 mg capsule 200 mg PO BID 11/23/22 [History Last Taken Unknown] acetaminophen 500 mg tablet 500 mg PO Q6H PRN pain 11/24/22 [History Last Taken Unknown] gabapentin 100 mg capsule 100 mg PO BID 11/24/22 [History Last Taken Unknown] mecobalamin (vitamin B12) 1,000 mcg chewable tablet 1,000 mcg PO DAILY 07/04/23 [History Last Taken Unknown] Allergy/AdvReac Type Severity Reaction Status Date / Time Penicillins [PCN] Allergy Rash Verified 07/10/23 08:38 Family History Mother Heart disease Hypertension Myocardial infarction CKD (chronic kidney disease) Father Cancer Lung Brother Hypertension Mixed hyperlipidemia Sister Cancer Lung Mixed hyperlipidemia Thyroid disorder Grandmother Colon cancer CVA (cerebral vascular accident) Brother Sudden cardiac , Onset Age: 56 Myocardial infarction Other CAD (coronary artery disease) Diabetes Surgical History History of arthroscopy of left knee History of carpal tunnel surgery History of tonsillectomy History of total left knee replacement (TKR) Hx of colonoscopy Social History (Updated 05/29/23 @ 09:51 by Addie Coughlin) current occupational status: retired Smoking Status: Former smoker alcohol intake: current details: occasional substance use type: does not use caffeine: Yes Type: coffee Number of servings: 5 Past Medical/Surgical History Planned Operation Planned Operative Procedure/s: CSCOPE Previous Hospitalizations/Surgeries HX Hospitalizations: No Any Problems With Anesthesia: No You/Your Family Experience Fever (Hyperthermia) With Anes: No Cholinesterase deficiency: No Cardiovascular Hx Heart Attack: No Hx Hypertension: Yes (CONTROLLED WITH MED) Respiratory Hx Chronic Obstructive Pulmonary Disease (COPD): No Hx Asthma: No Hx Emphysema: No Hx Sleep Apnea: No Hx Respiratory Tract Infection/Cold (presently): No Do You Snore Loudly (louder than talking or can be heard): No Do You Often Feel Tired/ Fatigued/ Sleepy Dring Daytime?: No Has Anyone Observed You Stop Breathing During Sleep?: No Result (for STOP score): Negative Smoking Status: Former smoker Neurological Hx Seizures: No Does patient have nerve stimulator: No Miscellaneous Recent Exposure to Contagious Disease: No Allergies Penicillins [PCN] Allergy (Verified 07/10/23 08:38) Rash Discharge Is Pt Admitted From a Shelter, or a Retirement: No After D/C, Where Do you Plan to Go: Return Home Vital Signs Vital Signs Vital Signs: 07/10/23 08:45 07/10/23 08:45 Temperature 97.9 F Temperature Source Temporal Pulse Rate 93 Respiratory Rate 16 Respiratory Pattern Normal Blood Pressure 151/96 H Blood Pressure Mean 114 Blood Pressure Source Monitor Blood Pressure Position Semi-Fowlers Blood Pressure Location Right Arm Pulse Ox 100 Oxygen Delivery Method Room Air Weight Weight: 149 lb 14.629 oz Body Mass Index (BMI) 20.9 Physical Exam Const alert and oriented x3 HEENT normocephalic Eyes PERRL Resp normal respiratory effort and normal air movement Cardio regular rate and regular rhythm GI soft to palpation, non-tender and non-distended Extremity normal to inspection Assessment & Plan Assessment/Plan (1) Encounter for screening for malignant neoplasm of colon: PLAN: I explained endoscopy in detail to the patient. I explained the risks including but not limited to stroke or heart attack with anesthesia, perforation of the GI tract, bleeding, infection. I explained that any of these could necessitate further emergency surgery. The patient understands and all questions were answered sufficiently. The patient wishes to proceed with procedure. Ebenezer Irizarry MD Pager: [facility] [address] [place] [address], [address] [place] [address] Office: Surgery Risks - Colonoscopy Risks Include but are not Limited To: Risks include but are not limited to: Bleeding, perforation requiring further surgery, inability to complete colonoscopy requiring barium enema.
[2023-07-10 10:08] VITALS: BP 151/96; BP 94/63; PULSE 70; RESP 14; TEMP 36.4; O2SAT 98
--- NOTE | 2023-07-10 10:11 | OP.COLON_ITS ---
Patient Name: Brannon Pierson Procedure Date: 07/10/2023 9:47 AM Date of : 1960 Age: 63 Procedure: Colonoscopy Indications: Screening for colorectal malignant neoplasm Providers: Ebenezer Irizarry MD Referring MD: Tu Reece Medicines: Monitored Anesthesia Care Patient Profile: This is a 63 year old male. Refer to note in patient chart for documentation of history and physical. Last Colonoscopy: 5 years ago. Last Colonoscopy: 10 years ago. Complications: No immediate complications. Procedure: Pre-Anesthesia Assessment: - Prior to the procedure, a History and Physical was performed, and patient medications and allergies were reviewed. The patient's tolerance of previous anesthesia was also reviewed. The risks and benefits of the procedure and the sedation options and risks were discussed with the patient. All questions were answered, and informed consent was obtained. Prior Anticoagulants: The patient has taken no anticoagulant or antiplatelet agents. After reviewing the risks and benefits, the patient was deemed in satisfactory condition to undergo the procedure. After I obtained informed consent, the scope was passed under direct vision. Throughout the procedure, the patient's blood pressure, pulse, and oxygen saturations were monitored continuously. The colonoscope was introduced through the anus and advanced to the cecum, identified by appendiceal orifice and ileocecal valve. The colonoscopy was performed without difficulty. The patient tolerated the procedure well. The quality of the bowel preparation was good. The ileocecal valve, appendiceal orifice, and rectum were photographed. Scope In: 9:53:42 AM Scope Withdrawal Time 0 hours 6 minutes 3 seconds Scope Out: 10:04:16 AM Total Procedure Duration Time 0 hours 10 minutes 34 seconds Findings: The entire examined colon appeared normal on direct and retroflexion views. Impression: - The entire examined colon is normal on direct and retroflexion views. - No specimens collected. Recommendation: - Discharge patient to home. - Resume previous diet. - Continue present medications. - Repeat colonoscopy in 10 years for screening purposes. Procedure Code(s): --- Professional --- 17385, Colonoscopy, flexible; diagnostic, including collection of specimen(s) by brushing or washing, when performed (separate procedure) Diagnosis Code(s): --- Professional --- Z12.11, Encounter for screening for malignant neoplasm of colon CPT copyright 2021 [employer]. All rights reserved. The codes documented in this report are preliminary and upon child and family services specialist review may be revised to meet current compliance requirements. Ebenezer Irizarry MD 07/10/2023 10:10:50 AM This report has been signed electronically. Number of Addenda: 0 Note Initiated On: 07/10/2023 9:47 AM
--- NOTE | 2023-07-10 10:11 | OP.CCLET_ITS ---
07/10/2023 Tu Reece [address] [place] [address] Re : Colonoscopy procedure for Brannon Pierson Dear Dr. Reece This procedure was performed on Monday, July 10, 2023. My impressions and recommendations are as follows: Impressions : - The entire examined colon is normal on direct and retroflexion views. - No specimens collected. Recommendations : - Discharge patient to home. - Resume previous diet. - Continue present medications. - Repeat colonoscopy in 10 years for screening purposes. My findings are described in the full procedure note, which is enclosed. If I can be of further assistance, please feel free to contact me at Doctor phone number(s): , Work: . Sincerely, Ebenezer Irizarry MD 07/10/2023 10:10:50 AM This report has been signed electronically.
[2023-07-10 10:15] VITALS: BP 151/96; BP 92/66; PULSE 68; RESP 14; O2SAT 99
[2023-07-10 10:20] VITALS: BP 151/96; BP 93/68; PULSE 66; RESP 14; O2SAT 97
[2023-07-10 10:26] VITALS: BP 151/96; BP 96/67; PULSE 62; RESP 14; TEMP 36.5; O2SAT 98
[2023-07-10 10:44] VITALS: BP 151/96
== END 2023-07-10 11:06 | disposition home or self-care (01) ==
LOC: EN 08:24 → AC 08:27
PROVIDERS: PCP Family Medicine; Referring Provider Family Medicine; Visit Provider Surgery
PROC: 0DJD8ZZ Inspection of Lower Intestinal Tract, Via Natural or Artificial Opening Endoscopic (ICD-10-PCS; CPT 45378; principal; 2023-07-10 09:25)
DX: Z12.11 Encounter for screening for malignant neoplasm of colon (principal); I10 Essential (primary) hypertension; E78.2 Mixed hyperlipidemia; Z87.891 Personal history of nicotine dependence; Z79.899 Other long term (current) drug therapy; Z87.19 Personal history of other diseases of the digestive system
CPT/HCPCS: 45378; J7120; J2405

== ENCOUNTER → 2023-09-10 | Outpatient (CLI) | payer MEDICAID, SELFPAY ==
--- NOTE | 2023-09-10 13:05 | RAD_ITS ---
STUDY: X-RAY - LUMBAR SPINE REASON FOR EXAM: Male, 63 years old. Polyneuropathy. TECHNIQUE: 3 view(s) of the lumbar spine were obtained. COMPARISON: None FINDINGS: Osteopenia. Normal lumbar lordosis. No substantial scoliosis. Normal alignment of the vertebrae. Diffuse lower thoracic and lumbosacral facet sclerosis. Diffuse intervertebral disc space narrowing most marked at L2-3, L4-5 and L5-S1. Vascular calcification. RAD/Lumbar Spine 2 or 3 Views IMPRESSION: Osteopenia with lower lumbosacral spondylosis. Electronically Signed: Pan Bianchi MD at 14:57 EDT ,
--- NOTE | 2023-09-10 13:10 | RAD_ITS ---
STUDY: X-RAY - CERVICAL SPINE REASON FOR EXAM: Male, 63 years old. Polyneuropathy. TECHNIQUE: 5 view(s) of the cervical spine were obtained. COMPARISON: None FINDINGS: Osteopenia. Normal anterior atlantoaxial articulation. Normal odontoid process. Normal cervical lordosis. Diffuse moderate uncovertebral and facet sclerosis. Intervertebral disc space narrowing diffusely but most marked at C4-5, C5-6, C6-7 and C7-T1. Osteophyte formation most marked at C5-6, C6-7 and C7-T1. Anterior bony neural foraminal encroachment at C4-5, C5-6, C6-7 and C7-T1 bilaterally, most marked at C5-6 and C6-7. Normal soft tissues. RAD/Cerv Spine 4 or 5 Views IMPRESSION: Osteopenia with moderate to marked lower cervical spondylosis with neural foraminal encroachment as described. Electronically Signed: Pan Bianchi MD at 15:47 EDT ,
== END | disposition home or self-care (01) ==
PROVIDERS: PCP Family Medicine; Referring Provider Nurse Practitioner Family; Visit Provider Nurse Practitioner Family
DX: G62.9 Polyneuropathy, unspecified (principal)
CPT/HCPCS: 72050; 72100

== ENCOUNTER → 2023-11-23 | Outpatient (CLI) | payer MEDICAID, SELFPAY ==
--- NOTE | 2023-11-23 11:55 | RAD_ITS ---
STUDY: X-RAY CHEST REASON FOR EXAM: Male, 63 years old. cough TECHNIQUE: PA and lateral COMPARISON: October 14, 2022 FINDINGS: The lungs are clear and expanded. There is no demonstrated pleural abnormality. Normal size heart. Normal mediastinum and avani. Normal visualized pulmonary arteries. Mildly calcified aortic arch and descending thoracic aorta. Dorsal spine and shoulders demonstrate degenerative change. Normal visualized ribs, clavicles, and shoulders. There is no demonstrated abnormality of the visualized soft tissue structures of the upper abdomen. RAD/Chest PA and Lateral IMPRESSION: No acute cardiopulmonary pathology Electronically Signed: Otoniel Barr MD at 17:26 EST ,
== END | disposition home or self-care (01) ==
LOC: MTRAD 11:55
PROVIDERS: PCP Family Medicine; Referring Provider Nurse Practitioner Family; Visit Provider Nurse Practitioner Family
DX: R05.9 Cough, unspecified (principal)
CPT/HCPCS: 71046

== ENCOUNTER → 2023-12-03 | Outpatient (CLI) | payer MEDICAID, SELFPAY ==
--- NOTE | 2023-12-03 11:00 | MRI_ITS ---
HISTORY: Radiculopathy. Bilateral leg and foot numbness and tingling. TECHNIQUE: Multiplanar and multisequence MR images of the lumbar spine were obtained without intravenous contrast. 103 images. COMPARISON: XR 09/10/2023. FINDINGS: VERTEBRAE: Vertebral body heights maintained. Degenerative bone marrow endplate changes and Schmorl''s nodes at multiple levels, particularly L2-3 through L5-S1. ALIGNMENT: No anterior or posterior subluxation. CONUS: Normal morphology and position of the conus medullaris at L1. INTERVERTEBRAL DISCS: T12-L1: Minimal disc bulge without significant central canal stenosis or foraminal narrowing based on the sagittal images. L1-2: Minimal disc bulge with facet arthropathy resulting in minimal narrowing of the thecal sac and no significant foraminal narrowing. L2-3: Moderate posterior disc bulge osteophyte complex with annular fissure and facet arthropathy resulting in mild central canal stenosis and bilateral foraminal narrowing. L3-4, L4-5: Moderate posterior disc bulge osteophyte complexes with facet arthropathy resulting in moderate central canal stenosis and bilateral foraminal narrowing. L5-S1: Mild posterior disc protrusion abutting the fissure and facet arthropathy resulting in minimal narrowing of the thecal sac and moderate bilateral foraminal narrowing with bilateral L5 nerve root abutment. SOFT TISSUES: No paraspinal fluid collections. MRI/Spine Lumbar (Routine) IMPRESSION: Multilevel degenerative disc disease resulting in moderate lumbar spinal canal stenosis, moderate foraminal narrowing, and bilateral nerve root abutment as above. Electronically Signed: Ivette Alvarado MD at 12:45 EST ,
== END | disposition home or self-care (01) ==
LOC: MRI 10:19
PROVIDERS: PCP Family Medicine; Referring Provider Anesthesiology Pain Medicine; Visit Provider Anesthesiology Pain Medicine
DX: M54.16 Radiculopathy, lumbar region (principal)
CPT/HCPCS: 72148

== ENCOUNTER → 2023-12-29 | Outpatient (CLI) | payer MEDICAID, SELFPAY ==
--- OUTSIDE RECORDS SUMMARY | 2023-12-29 11:44 | XMS RPT_ITS | CCD ---
Author Name Unknown Address [id number] [place] [address] Organization [facility] Care Team Providers Care Nuclear Equipment Test Engineer Name Role Phone Unavailable Primary Care Provider Unavailhan Dumont MD, Malachi Braswell Primary Care Provider Tim HARRELL, Malachi Braswell Primary Care Provider Garry Cortez Unavailable Unavailable Cleveland HARRELL, Shannan Unavailable Vera MANAGING COGNITIVE ENGINEER.ALAN, Josep Unavailable Anna PT, Ibis Unavailable MALACHI DUMONT Primary Care Unavailable JOSPE GAMEZ Referring Unavailable MALACHI DUMONT Primary Care Unavailable SHANNAN GUTHRIE Referring Unavailable MALACHI DUMONT Primary Care Unavailable SHANNAN GUTHRIE Referring Unavailable TIMMALACHI NERI Primary Care Unavailable MALACHI DUMONT Primary Care Unavailable SHANNAN GUTHRIE Admitting Unavailable SHANNAN GUTHRIE Attending Unavailable DANI CAAL Consulting Unavailable HARVEY VARGAS Referring Unavailable JOSEP GAMEZ Referring Unavailable MALACHI DUMONT Primary Care Unavailable Ines'TOINORA PADILLA Attending Unavailable JOSEP GAMEZ Referring Unavailable MALACHI DUMONT Primary Care Unavailable MALACHI DUMONT Primary Care Unavailable JOSEP GAMEZ Referring Unavailable MALACHI DUMONT Primary Care Unavailable JOSEP GAMEZ Referring Unavailable O'TOINORA PADILLA Attending Unavailable MALACHI DUMONT Primary Care Unavailable JOSEP GAMEZ Referring Unavailable O'TOINORA PADILLA Attending Unavailable MALACHI DUMONT Primary Care Unavailable JOSEP GAMEZ Referring Unavailable JOSEP GAMEZ Referring Unavailable MALACHI DUMONT Primary Care Unavailable HARVEY VARGAS Referring Unavailable SHANNAN GUTHRIE Attending Unavailable MALACHI DUMONT Primary Care Unavailable GRATER, JOSEP Referring Unavailable TIM, MALACHI BRASWELL Primary Care Unavailable GRATER, JOSEP Referring Unavailable O'TOI, NORA Attending Unavailable GRATER, JOSEP Referring Unavailable TIM, MALACHI BRASWELL Primary Care Unavailable GRATER, JOSEP Referring Unavailable TIM, MALACHI BRASWELL Primary Care Unavailable O'TOI, NORA Attending Unavailable GRATER, JOSEP Referring Unavailable TIM, MALACHI BRASWELL Primary Care Unavailable O'TOI, NORA Attending Unavailable GRATER, JOSEP Referring Unavailable TIM, MALACHI BRASWELL Primary Care Unavailable TIM, MALACHI BRASWELL Primary Care Unavailable GRATER, JOSEP Referring Unavailable O'TOI, NORA Attending Unavailable TIM, MALACHI BRASWELL Primary Care Unavailable GRATER, JOSEP Referring Unavailable SURACE, SHANNAN Referring Unavailable TIM, MALACHI BRASWELL Primary Care Unavailable SURACE, SHANNAN Referring Unavailable TIM, MALACHI BRASWELL Primary Care Unavailable JUNIOR SMALLWOOD Referring Unavailable TIM, MALACHI BRASWELL Primary Care Unavailable GRATER, JOSEP Referring Unavailable TIM, MALACHI BRASWELL Primary Care Unavailable SURACE, SHANNAN Attending Unavailable TIM, MALACHI BRASWELL Primary Care Unavailable TIM, MALACHI BRASWELL Primary Care Unavailable SURACE, SHANNAN Attending Unavailable TIM, MALACHI BRASWELL Primary Care Unavailable TIM, MALACHI BRASWELL Primary Care Unavailable SURACE, SHANNAN Attending Unavailable GRATERJOSEP Attending Unavailable TIM, MALACHI BRASWELL Primary Care Unavailable HARVEY VARGAS Attending Unavailable Allergies Allergy Classification Reported Allergen(s) Allergy Type Date of Onset Reaction(s) Facility (20 sources) Penicillin; Translations: [PENICILLIN] Drug Allergy 07-20-2022 Rash [facility] Medications Current Medications Medication Drug Class(es) Dates Sig (Normalized) Sig (Original) docusate sodium 100 mg oral capsule (16 sources) Start: 12-05-2022 End: 01-04-2023 take 1 capsule by mouth every twelve hours as needed docusate sodium (COLACE) 100 mg capsule Take 1 capsule by mouth twice daily as needed for constipation. 60 capsule 0 12/05/2022 01/04/2023 Active Completed/Discontinued Medications Medication Drug Class(es) Dates Sig (Normalized) Sig (Original) acetaminophen 500 mg oral tablet (20 sources) Start: 12-05-2022 take 2 tablets by mouth every eight hours as needed acetaminophen (TYLENOL) 500 mg tablet Take 2 tablets by mouth every 8 hours as needed for pain. 90 tablet 0 12/05/2022 Active Problems Active Problems Problem Classification Problem Date Documented Date Episodic/Chronic Disorders of lipid metabolism (20 sources) Mixed hyperlipidemia; Translations: [Mixed hyperlipidemia] Onset: 04-05-2022 Chronic Essential hypertension (20 sources) Essential hypertension; Translations: [Essential (primary) hypertension] Onset: 11-22-2022 Chronic Osteoarthritis (7 sources) Osteoarthritis of left knee joint; Translations: [Unilateral primary osteoarthritis, left knee] Onset: 07-20-2022 Chronic Other connective tissue disease (3 sources) History of total knee arthroplasty; Translations: [Presence of left artificial knee joint] Chronic Other connective tissue disease (1 source) Presence of left artificial knee joint; Translations: [S/P total knee arthroplasty, left] Onset: 12-04-2022 Chronic Other nervous system disorders (1 source) Polyneuropathy; Translations: [Polyneuropathy, unspecified] Chronic Other nervous system disorders (20 sources) Peripheral nerve disease ; Translations: [Polyneuropathy, unspecified] Onset: 11-22-2022 11-22-2022 Chronic Other nervous system disorders (1 source) Other chronic pain; Translations: [Chronic pain of left knee] Onset: 11-15-2022 Chronic Other non-traumatic joint disorders (5 sources) Pain in left knee; Translations: [Pain in joint, lower leg] Onset: 11-15-2022 Episodic Other non-traumatic joint disorders (20 sources) Stiffness of left knee; Translations: [Stiffness of left knee, not elsewhere classified] Onset: 12-25-2022 Episodic Other non-traumatic joint disorders (1 source) Stiffness of left knee, not elsewhere classified; Translations: [Stiffness of left knee] Onset: 12-25-2022 Episodic Other skin disorders (2 sources) Disorder of left lower extremity; Translations: [Localized swelling, mass and lump, left lower limb] Episodic Unclassified (1 source) S/P Robotic L TKA Onset: 12-19-2022 Unclassified (1 source) Encounter for preoperative screening laboratory testing for COVID-19 virus; Translations: [Encounter for preoperative screening laboratory testing for COVID-19 virus] Onset: 12-01-2022 Past or Other Problems Problem Classification Problem Date Documented Da te Episodic/Chronic Other skin disorders (2 sources) Localized swelling, mass and lump, left lower limb; Translations: [Localized swelling, mass, or lump of left lower extremity] Onset: 09-12-2022 Episodic Screening and history of mental health and substance abuse codes (20 sources) Ex-smoker; Translations: [Personal history of nicotine dependence] Onset: 11-22-2022 Episodic Spondylosis; intervertebral disc disorders; other back problems (20 sources) Chronic back pain ; Translations: [Dorsalgia, unspecified] Onset: 11-22-2022 Episodic Results Test Name Value Interpretation Reference Range Facil ity Vital Signs Date Time Vital Sign Value Performing Clinician Faci lity 12-22-2022 14:09-0500 Body temperature 98.2 [degF] Ibis Castillo PT Work Phone: [facility] 12-22-2022 14:09-0500 Diastolic blood pressure 82 mm[Hg] Ibis Castillo PT Work Phone: [facility] 12-22-2022 14:09-0500 Heart rate 76 /min Ibis Castillo PT Work Phone: [facility] 12-22-2022 14:09-0500 Respiratory rate 18 /min Ibis Castillo PT Work Phone: [facility] 12-22-2022 14:09-0500 SaO2% (BldA) [Mass fraction] 99 % Ibis Castillo PT Work Phone: [facility] 12-22-2022 14:09-0500 Systolic blood pressure 146 mm[Hg] Ibis Castillo PT Work Phone: [facility] 12-18-2022 11:08-0500 Body temperature 98.91 [degF] Mica Roman MARINE SERVICE STATION ATTENDANT Work Phone: [facility] 12-18-2022 11:08-0500 Diastolic blood pressure 82 mm[Hg] Mica Roman MARINE SERVICE STATION ATTENDANT Work Phone: [facility] 12-18-2022 11:08-0500 Heart rate 89 /min Mica Roman MARINE SERVICE STATION ATTENDANT Work Phone: [facility] 12-18-2022 11:08-0500 Respiratory rate 18 /min Mica Roman MARINE SERVICE STATION ATTENDANT Work Phone: [facility] 12-18-2022 11:08-0500 SaO2% (BldA) [Mass fraction] 98 % Mica Roman MARINE SERVICE STATION ATTENDANT Work Phone: [facility] 12-18-2022 11:08-0500 Systolic blood pressure 118 mm[Hg] Mica Roman MARINE SERVICE STATION ATTENDANT Work Phone: [facility] 12-15-2022 10:01-0500 Body temperature 98.71 [degF] Mica Roman MARINE SERVICE STATION ATTENDANT Work Phone: [facility] 12-15-2022 10:01-0500 Diastolic blood pressure 70 mm[Hg] Mica Roman MARINE SERVICE STATION ATTENDANT Work Phone: [facility] 12-15-2022 10:01-0500 Heart rate 96 /min Mica Roman MARINE SERVICE STATION ATTENDANT Work Phone: [facility] 12-15-2022 10:01-0500 Respiratory rate 18 /min Mica Roman MARINE SERVICE STATION ATTENDANT Work Phone: [facility] 12-15-2022 10:01-0500 SaO2% (BldA) [Mass fraction] 99 % Mica Roman MARINE SERVICE STATION ATTENDANT Work Phone: [facility] 12-15-2022 10:01-0500 Systolic blood pressure 118 mm[Hg] Mica Roman MARINE SERVICE STATION ATTENDANT Work Phone: [facility] 12-13-2022 13:39-0500 Diastolic blood pressure 70 mm[Hg] Mica Roman MARINE SERVICE STATION ATTENDANT Work Phone: [facility] 12-13-2022 13:39-0500 Heart rate 80 /min Mica Roman MARINE SERVICE STATION ATTENDANT Work Phone: [facility] 12-13-2022 13:39-0500 SaO2% (BldA) [Mass fraction] 98 % Mica Roman MARINE SERVICE STATION ATTENDANT Work Phone: [facility] 12-13-2022 13:39-0500 Systolic blood pressure 118 mm[Hg] Mica Roman MARINE SERVICE STATION ATTENDANT Work Phone: [facility] 12-13-2022 12:39-0500 Body temperature 99 [degF] Mica Roman MARINE SERVICE STATION ATTENDANT Work Phone: [facility] 12-13-2022 12:39-0500 Respiratory rate 18 /min Mica Roman MARINE SERVICE STATION ATTENDANT Work Phone: [facility] 12-11-2022 13:20-0500 Diastolic blood pressure 78 mm[Hg] Mica Roman MARINE SERVICE STATION ATTENDANT Work Phone: [facility] 12-11-2022 13:20-0500 Heart rate 90 /min Mica Roman MARINE SERVICE STATION ATTENDANT Work Phone: [facility] 12-11-2022 13:20-0500 SaO2% (BldA) [Mass fraction] 98 % Mica Roman MARINE SERVICE STATION ATTENDANT Work Phone: [facility] 12-11-2022 13:20-0500 Systolic blood pressure 114 mm[Hg] Mica Roman MARINE SERVICE STATION ATTENDANT Work Phone: [facility] 12-11-2022 12:24-0500 Body temperature 98.91 [degF] Mica Roman MARINE SERVICE STATION ATTENDANT Work Phone: [facility] 12-11-2022 12:24-0500 Respiratory rate 18 /min Mica Roman MARINE SERVICE STATION ATTENDANT Work Phone: [facility] 12-06-2022 12:20-0500 Diastolic blood pressure 80 mm[Hg] Ronny Napoleon PT Work Phone: [facility] 12-06-2022 12:20-0500 Heart rate 74 /min Ronny Napoleon PT Work Phone: [facility] 12-06-2022 12:20-0500 Respiratory rate 16 /min Ronny Napoleon PT Work Phone: [facility] 12-06-2022 12:20-0500 SaO2% (BldA) [Mass fraction] 99 % Ronny Napoleon PT Work Phone: [facility] 12-06-2022 12:20-0500 Systolic blood pressure 118 mm[Hg] Ronny Napoleon PT Work Phone: [facility] 12-06-2022 11:22-0500 Body temperature 99.39 [degF] Ronny Napoleon PT Work Phone: [facility] 11-22-2022 10:24-0500 Body height 180.3 cm Pacc 1 Work Phone: [facility] 11-22-2022 10:24-0500 Body temperature 97.9 [degF] Pacc 1 Work Phone: [facility] 11-22-2022 10:24-0500 Body weight 69.85 kg Pacc 1 Work Phone: [facility] 11-22-2022 10:24-0500 Diastolic blood pressure 80 mm[Hg] Pacc 1 Work Phone: [facility] 11-22-2022 10:24-0500 Heart rate 99 /min Pacc 1 Work Phone: [facility] 11-22-2022 10:24-0500 Respiratory rate 16 /min Pacc 1 Work Phone: [facility] 11-22-2022 10:24-0500 SaO2% (BldA) [Mass fraction] 99 % Pacc 1 Work Phone: [facility] 11-22-2022 10:24-0500 Systolic blood pressure 110 mm[Hg] Pacc 1 Work Phone: [facility] 09-12-2022 13:14-0400 Body height 177.8 cm Shannan Guthrie MD Work Phone: [facility] 09-12-2022 13:14-0400 Body weight 71.67 kg Shannan Guthrie MD Work Phone: [facility] Encounters Encounter Date Encounter Type Care Provider Facility Start: 03-06-2023 End: 03-06-2023 ambulatory SHANNAN GUTHRIE Facility:[facility] Start: 03-06-2023 End: 03-06-2023 Patient encounter procedure Shannan Guthrie MD Work Phone: Orthopaedics Procedures Date Procedure Procedure Detail Performing Clinician Start: 11-29-2022 Ct lower extremity w /o contrast material Josep Gamez APRN.CNP Work Phone: Start: 11-22-2022 Antibody screen HARVEY VARGAS Plan of Treatment Date Care Activity Detail Author Start: 12-05-2025 DIABETES SCREEN DIABETES SCREEN [facility] Start: 12-05-2025 Diabetes Screening Diabetes Screenin g [facility] Start: 11-22-2025 DIABETES SCREEN DIABETES SCREEN [facility] Start: 12-15-2023 BP CONTROLLED (<130/80) BP CON TROLLED (<130/80) [facility] Start: 12-13-2023 BP CONTROLLED (<130/80) BP CON TROLLED (<130/80) [facility] Start: 12-11-2023 BP CONTROLLED (<130/80) BP CON TROLLED (<130/80) [facility] Start: 07-13-2023 Covid-19 Vaccine ( season) Covid-19 Vaccine ( season) [facility] Start: 07-13-2023 Influenza vaccination Influenza Vacc ine (#1) [facility] Start: 11-22-2022 End: 01-22-2023 CONFIRM BLOOD TYPE [facility] Work Phone: Immunizations Immunization Date Immunization Notes Care Provider Maureen sun 07-28-2022 influenza virus vacc ine, unspecified formulation Mri (I-Stat/1.5t) Work Phone: [facility] Payers Date Payer Category Payer Private Health Insurance [id number] 2022 Medicaid [id number] 2022 Medicaid [id number] Social History Date Type Detail Facility Start: 07-20-2022 [facility] End: 07-16-2002 History of tobacco use Current smoker [facility] End: 07-16-2002 History of tobacco use Cigarette Smoker [facility] Start: 07-20-2022 Tobacco use and exposure Smokeless t obacco non-user [facility] Start: 07-20-2022 End: 09-12-2022 Alcohol intake Current drinker of alcohol (finding) [facility] Start: 07-20-2022 History SDOH Alcohol Comment ocassional beer [facility] Start: 07-20-2022 Tobacco Comment Quit smoking 2 0 years ago - 2001 [facility] Start: 1960 Sex Assigned At Not on file C [facility] Start: 07-10-2022 End: 10-03-2022 Exposure to SARS-CoV-2 (event) Not sure [facility] Start: 09-12-2022 History of Social function [facility] Start: 09-12-[address] [facility] Medical Equipment Procedure Code Equipment Code Equipment Origin al Text Equipment Identifier Dates Component Tritan ium 35mm Metal 10mm Patellar Asymmetric Knee - [id number] Start: 12-04-2022 Clinical Notes 07-20-2022 to 03-06-2023 Shannan Guthrie MD - 03/06/2023 5:20 PM EDPeter Salazar, PT - 02/14/2023 12:47 PM Nellie Salazar, PT - 02/12/2023 11:02 AM Oliver Lyle, PT - 02/07/2023 1:59 PM EDTPatient Instructions Note Date & Type Note Facility 03-06-2023 Note HNO ID: [id number] Author: Shannan Guthrie MD Service: ? Author Type: Physician Type: Progress Notes Filed: 03/06/2023 5:22 PM Note Text: Thomas is doing quite well after his left knee replacement. He has minimal to no pain. His range of motion is 0 to 125 degrees. He is stable ligamentous exam. He has some swelling which is still expected postoperatively. I discussed with him standard recovery and normal expectations after knee replacement. I discussed with him preoperatively that he had quite a bit of knee swelling and that I would expect him to have swelling postoperatively as well. I am not concerned by his level of swelling now because not accompanied by redness, pain, or any evidence of infection. He mowed his lawn today and is back to work and doing well with that. He has some clicking which is normal with a knee replacement we discussed that as is the lateral skin numbness. Overall, the goal of pain reduction has been achieved and he is quite happy with that result. He can follow-up annually. Shannan Guthrie MD Orthopaedic Surgery [facility] 03-06-2023 History of Present illness Narrative Thomas is doing quite well after his left knee replacement. He has minimal to no pain. His range of motion is 0 to 125 degrees. He is stable ligamentous exam. He has some swelling which is still expected postoperatively. I discussed with him standard recovery and normal expectations after knee replacement. I discussed with him preoperatively that he had quite a bit of knee swelling and that I would expect him to have swelling postoperatively as well. I am not concerned by his level of swelling now because not accompanied by redness, pain, or any evidence of infection. He mowed his lawn today and is back to work and doing well with that. He has some clicking which is normal with a knee replacement we discussed that as is the lateral skin numbness. Overall, the goal of pain reduction has been achieved and he is quite happy with that result. He can follow-up annually. Shannan Guthrie MD Orthopaedic Surgery documented in this encounter [facility] 02-14-2023 Note HNO ID: [id number] Author: Nora Salazar, PT Service: ? Author Type: Physical Therapist Type: Progress Notes Filed: 02/14/2023 1:36 PM Note Text: Episode Visit Count: 15 Therapist That Will Accept/Oversee The Plan Of Care: Nora Salazar Start of Care Date: 12/25/22 Onset Date: 12/04/22 Plan of Care Certification Date: 02/14/23 Next Certification Due Date: 03/21/23 REHABILITATION AND SPORTS THERAPY PHYSICAL THERAPY PROGRESS REPORT PLAN OF CARE UPDATE: Assessment: Thomas Pierson demonstrates improvements in sitting, rising from a chair, standing, walking, walking in the house, walking in the community, stair negotiation, bending, physical activities, and sleeping. He has progressed toward goals. Patient continues to present with impairments in balance, independence in exercise, overall function, patient reported outcome measures, symptom management, and tissue tenderness that interfere with working, weight bearing, bed mobility, driving, dressing, squatting, kneeling . Current prognosis is Good due to: positive past response to therapy . He will benefit from continued skilled therapy services to meet the updated goals for this plan of care as noted below. Goals for Episode of Care: created on 12/25/22 through 02/19/23 Goals updated on 01/24/2023 through 02/28/2023 Goals updated on 02/14/2023. Through 03/21/23 [place] in home exercise program. -- MET Patient will increase active ROM of L knee 0 degrees of extension to 115 degrees of flexion to allow pt to to improve performance of ADLs and to improve gait mechanics / gait pattern . -- MET Patient will demonstrate increase in L quadriceps and L hamstring strength to 4/5 during manual muscle testing in order to improve function for prior functional tasks. -- MET Perform stairs with reciprocal pattern ascending and descending (x4)6 therapy steps with or without HR and without AD with decreased report of symptoms/pain in 8 weeks. -- MET Patient will improve 30 sec sit <> stand to 14 reps or greater to demonstrate improvement in functional lower extremity strength. -- MET, 19 reps Patient Goals: improve functional strength and mobility of L knee to return to PLOF ambuation and ADLs without AD or limitation due to knee Pain -- MET Planned Interventions, Frequency, and Duration: 1x/week, 5 weeks Total Number of Visits Planned: 5 Patient to be seen for Therapeutic exercise (37475), Neuromuscular re-education (71688), Manual therapy (04778), Gait Training (53283), Therapeutic activities (21870), Self-half-way management (87355), Patient/Family/Caregiver Education PLAN FOR NEXT VISIT: PN and hold chart x 1 month. DC if pt. doesn't return by 03/21/23 SUBJECTIVE: Patient Reason for Visit: Reports increased pain LLE knee and swelling. He mowed 2 lawns (push mower) and this increased his symptoms to a 6/10. He wants his physician to drain his knee because he thinks there is fluid. Pt. wears a knee sleeve brace when mowing. He reports no difficulty with ADLs, soreness and swealling subsides with HEP exercises as well as elevation.. Functional Limitations: working, weight bearing, bed mobility, driving, dressing, squatting, kneeling Pain: Pain Pain Level: 6 Pain Location: Knee - Left Post Treatment Pain Post Treatment Pain Level: 5 Post Treatment Pain Location: Knee - Left PROMIS Scales T-scores: mean of general population = 50. 5 points is clinically meaningfully difference Percentiles provide an indication of how the patient's score ranks in relation to the general population. Higher percentile rankings indicate better function/quality of life. 50th percentile is the average of the general population and indicates half of respondents had a worse score. OBJECTIVE MEASURES WITH LEVEL OF FUNCTION: LE AROM L Knee Extension: -1 Degrees L Knee Flexion: 119 Degrees LE Strength L Knee Extension (L3): 5/5 L Knee Flexion: 5/5 Gait Gait: Independent Gait Device: None TREATMENT: Therapeutic Exercise: 1: seated LAQ 2x5 LLE 2: supine heel slide 1x5 LLE 3: supine SLR LLE 3x8 5: Leg press 88# 3x12 Skilled Intervention: Patient was educated in proper exercise technique and purpose for exercises. Reviewed and educated patient on additions/changes for home exercise program as above (*). Skilled judgment was provided in selection of appropriate interventions. Provided written instruction for home exercise program to facilitate proper performance and compliance. Additional time necessary for assessing progress toward goals due to PN today. Educated patient on rationale for performing exercises in regards to decreasing fatigue , including balance, increase ease of ADL, and ROM and function . Patient education as noted. Gait Training: Distance (feet): 200 Gait Cues: none needed Assistive Device: none Assist Level: no cues needed today Stair Training: ascending and desc (more content not included)... [facility] 02-14-2023 History of Present illness Narrative Episode Visit Count: 15 Therapist That Will Accept/Oversee The Plan Of Care: Nora Salazar Start of Care Date: 12/25/22 Onset Date: 12/04/22 Plan of Care Certification Date: 02/14/23 Next Certification Due Date: 03/21/23 REHABILITATION AND SPORTS THERAPY PHYSICAL THERAPY PROGRESS REPORT PLAN OF CARE UPDATE: Assessment: Thomas Pierson demonstrates improvements in sitting, rising from a chair, standing, walking, walking in the house, walking in the community, stair negotiation, bending, physical activities, and sleeping. He has progressed toward goals. Patient continues to present with impairments in balance, independence in exercise, overall function, patient reported outcome measures, symptom management, and tissue tenderness that interfere with working, weight bearing, bed mobility, driving, dressing, squatting, kneeling . Current prognosis is Good due to: positive past response to therapy . He will benefit from continued skilled therapy services to meet the updated goals for this plan of care as noted below. Goals for Episode of Care: created on 12/25/22 through 02/19/23 Goals updated on 01/24/2023 through 02/28/2023 Goals updated on 02/14/2023. Through 03/21/23 [place] in home exercise program. -- MET Patient will increase active ROM of L knee 0 degrees of extension to 115 degrees of flexion to allow pt to to improve performance of ADLs and to improve gait mechanics / gait pattern . -- MET Patient will demonstrate increase in L quadriceps and L hamstring strength to 4/5 during manual muscle testing in order to improve function for prior functional tasks. -- MET Perform stairs with reciprocal pattern ascending and descending (x4)6 therapy steps with or without HR and without AD with decreased report of symptoms/pain in 8 weeks. -- MET Patient will improve 30 sec sit <> stand to 14 reps or greater to demonstrate improvement in functional lower extremity strength. -- MET, 19 reps Patient Goals: improve functional strength and mobility of L knee to return to PLOF ambuation and ADLs without AD or limitation due to knee Pain -- MET Planned Interventions, Frequency, and Duration: 1x/week, 5 weeks Total Number of Visits Planned: 5 Patient to be seen for Therapeutic exercise (69572), Neuromuscular re-education (26268), Manual therapy (69696), Gait Training (70362), Therapeutic activities (00267), Self-half-way management (53995), Patient/Family/Caregiver Education PLAN FOR NEXT VISIT: PN and hold chart x 1 month. DC if pt. doesn't return by 03/21/23 SUBJECTIVE: Patient Reason for Visit: Reports increased pain LLE knee and swelling. He mowed 2 lawns (push mower) and this increased his symptoms to a 6/10. He wants his physician to drain his knee because he thinks there is fluid. Pt. wears a knee sleeve brace when mowing. He reports no difficulty with ADLs, soreness and swealling subsides with HEP exercises as well as elevation.. Functional Limitations: working, weight bearing, bed mobility, driving, dressing, squatting, kneeling Pain: Pain Pain Level: 6 Pain Location: Knee - Left Post Treatment Pain Post Treatment Pain Level: 5 Post Treatment Pain Location: Knee - Left PROMIS Scales T-scores: mean of general population = 50. 5 points is clinically meaningfully difference Percentiles provide an indication of how the patient's score ranks in relation to the general population. Higher percentile rankings indicate better function/quality of life. 50th percentile is the average of the general population and indicates half of respondents had a worse score. OBJECTIVE MEASURES WITH LEVEL OF FUNCTION: LE AROM L Knee Extension: -1 Degrees L Knee Flexion: 119 Degrees LE Strength L Knee Extension (L3): 5/5 L Knee Flexion: 5/5 Gait Gait: Independent Gait Device: None TREATMENT: Therapeutic Exercise: 1: seated LAQ 2x5 LLE 2: supine heel slide 1x5 LLE 3: supine SLR LLE 3x8 5: Leg press 88# 3x12 Skilled Intervention: Patient was educated in proper exercise technique and purpose for exercises. Reviewed and educated patient on additions/changes for home exercise program as above (*). Skilled judgment was provided in selection of appropriate interventions. Provided written instruction for home exercise program to facilitate proper performance and compliance. Additional time necessary for assessing progress toward goals due to PN today. Educated patient on rationale for performing exercises in regards to decreasing fatigue , including balance, increase ease of ADL, and ROM and function . Patient education as noted. Gait Training: Distance (feet): 200 Gait Cues: none needed Assistive Device: none Assist Level: no cues needed today Stair Training: ascending and descending x 4 therapy steps x6 without rail and with reciprocal pattern - independent Skilled Intervention: Patient was provided independence during pre-gait/gait training to prevent falls and insure safety. Reviewed and educated patient on additions/changes for home program as noted above with an (*). Correct performance of home program was facilitated with verbal, visual, and tactile cueing. Self-Fpc Management: 1: *discussed that soreness and swelling is expected following increased activity-- if symptoms subside with rest, elevation, and ice application 2: *discussed importance of continued compliance with HEP exercises 3: *discussed meniscus removed with TKA, showed pt. picture of a [place] knee and a replaced knee Skilled Intervention: Skilled judgment in the selection of proper modification for activity of daily living/home management based on clinical presentation, deficits, and needs. Reviewed patient specific diagnosis in relation to activities of daily living/home management. Activity progression based on professional judgement. Reviewed and educated patient on additions/changes for home program as noted above with an (*). Correct performance of home program was facilitated with verbal, visual, and tactile cueing. Billing Therapeutic Exercise Treatment Minutes: 18 Self-Care/Home Management Treatment Minutes: 15 Gait Training Treatment Minutes: 5 Total Treatment Time Minutes (timed/untimed): 38 Nora Salazar PT documented in this encounter [facility] 02-12-2023 Note HNO ID: [id number] Author: Nora Salazar PT Service: ? Author Type: Physical Therapist Type: Progress Notes Filed: 02/12/2023 12:00 PM Note Text: Episode Visit Count: 14 Therapist That Will Accept/Oversee The Plan Of Care: Nora Salazar Start of Care Date: 12/25/22 Onset Date: 12/04/22 Plan of Care Certification Date: 01/24/23 Next Certification Due Date: 02/28/23 Patient Identified by Name and Date of : Yes REHABILITATION AND SPORTS THERAPY PHYSICAL THERAPY TREATMENT NOTE ASSESSMENT: Thomas Pierson tolerated the session with fatigue and expected muscle soreness. He demonstrated difficulty with eccentric quad on 6 inch step with return to knee extended position. The patient will continue to benefit from ongoing skilled physical therapy to progress toward set goals. PLAN FOR NEXT VISIT: Continue with quad strengthening emphasis. SUBJECTIVE: Patient Reason for Visit: Pt reports that his knee is not feeling too bad, no real changes. Pain: Pain Pain Level: 0 Pain Location: Knee - Left Post Treatment Pain Post Treatment Pain Level: 0 Post Treatment Pain Location: Knee - Left Post Treatment Symptoms: Pt stated that his knees were shaky at the end of the session. OBJECTIVE MEASURES WITH LEVEL OF FUNCTION: Pt easily fatigued with leg press. TREATMENT: Therapeutic Exercise: 1: Upright bike seat 8 full revolutions 6 min level 3 (subjective taken) 2: Eccentric quads on 4 inch juan 1x10, 6 inch step 2x10 (emphasis on technique) 3: physioball wall squats 2x10 4: Step downs on 6 inch step 2x10 (emphasis on lowering slowly for increased quad control) 5: Leg press 88# 2x15 Skilled Intervention: Patient was educated in proper exercise technique and purpose for exercises. Skilled judgment was provided in selection of appropriate interventions. Correct performance of therapeutic exercises was facilitated with verbal and visual cuing. Neuromuscular Re-Education: 1: Lateral step ups on BOSU 2x10 B 2: L SLS ball toss into rebounder 3x10 Skilled Intervention: Skilled judgment used to assess appropriate program for balance and coordination activity. Billing Therapeutic Exercise Treatment Minutes: 30 Neuromuscular Re-Education Treatment Minutes: 10 Total Treatment Time Minutes (timed/untimed): 40 Mana Escobar, [employer] ATTEND[employer] Nora Salazar, PT [facility] 02-12-2023 History of Present illness Narrative Episode Visit Count: 14 Therapist That Will Accept/Oversee The Plan Of Care: Nora Salazar Start of Care Date: 12/25/22 Onset Date: 12/04/22 Plan of Care Certification Date: 01/24/23 Next Certification Due Date: 02/28/23 Patient Identified by Name and Date of : Yes REHABILITATION AND SPORTS THERAPY PHYSICAL THERAPY TREATMENT NOTE ASSESSMENT: Thomas Pierson tolerated the session with fatigue and expected muscle soreness. He demonstrated difficulty with eccentric quad on 6 inch step with return to knee extended position. The patient will continue to benefit from ongoing skilled physical therapy to progress toward set goals. PLAN FOR NEXT VISIT: Continue with quad strengthening emphasis. SUBJECTIVE: Patient Reason for Visit: Pt reports that his knee is not feeling too bad, no real changes. Pain: Pain Pain Level: 0 Pain Location: Knee - Left Post Treatment Pain Post Treatment Pain Level: 0 Post Treatment Pain Location: Knee - Left Post Treatment Symptoms: Pt stated that his knees were shaky at the end of the session. OBJECTIVE MEASURES WITH LEVEL OF FUNCTION: Pt easily fatigued with leg press. TREATMENT: Therapeutic Exercise: 1: Upright bike seat 8 full revolutions 6 min level 3 (subjective taken) 2: Eccentric quads on 4 inch juan 1x10, 6 inch step 2x10 (emphasis on technique) 3: physioball wall squats 2x10 4: Step downs on 6 inch step 2x10 (emphasis on lowering slowly for increased quad control) 5: Leg press 88# 2x15 Skilled Intervention: Patient was educated in proper exercise technique and purpose for exercises. Skilled judgment was provided in selection of appropriate interventions. Correct performance of therapeutic exercises was facilitated with verbal and visual cuing. Neuromuscular Re-Education: 1: Lateral step ups on BOSU 2x10 B 2: L SLS ball toss into rebounder 3x10 Skilled Intervention: Skilled judgment used to assess appropriate program for balance and coordination activity. Billing Therapeutic Exercise Treatment Minutes: 30 Neuromuscular Re-Education Treatment Minutes: 10 Total Treatment Time Minutes (timed/untimed): 40 EVI Mancilla PT documented in this encounter [facility] 02-07-2023 Note HNO ID: [id number] Author: Quang Lyle PT Service: ? Author Type: Physical Therapist Type: Progress Notes Filed: 02/07/2023 3:48 PM Note Text: Episode Visit Count: 13 Therapist That Will Accept/Oversee The Plan Of Care: Nora Salazar Start of Care Date: 12/25/22 Onset Date: 12/04/22 Plan of Care Certification Date: 01/24/23 Next Certification Due Date: 02/28/23 Patient Identified by Name and Date of : Yes REHABILITATION AND SPORTS THERAPY PHYSICAL THERAPY TREATMENT NOTE ASSESSMENT: Thomas Pierson tolerated the session with fatigue and expected muscle soreness. He demonstrated improvements in technique with physioball wall squats. The patient will continue to benefit from ongoing skilled physical therapy to progress toward set goals. PLAN FOR NEXT VISIT: Continue with quad strengthening to help ease functional tasks as pt returns back to work soon. SUBJECTIVE: Patient Reason for Visit: Pt reports that his knee is not hurting as much as it was. Pt states that he was doing some yard work and had increased swelling. Pain: Pain Pain Level: 0 Pain Location: Knee - Left Post Treatment Pain Post Treatment Pain Level: No Change Post Treatment Pain Location: Knee - Left OBJECTIVE MEASURES WITH LEVEL OF FUNCTION: Good technique noted with eccentric quads without compensations. TREATMENT: Therapeutic Exercise: 1: Upright bike seat 8 full revolutions 6 min level 3 (subjective taken) 2: prone HS curls 2x15 LLE 3: physioball wall squats 2x10 4: Lunges on BOSU 2x10 B 5: 1/2 Kneeling on foam with RLE 2x5 with push off using BUE on LLE for return to standing 6: Eccentric quads 1x10 on 4 inch step, 1x10 on 6 inch step with UE assist on parallel bars for balance 7: leg press #88 2x15 Skilled Intervention: Patient was educated in proper exercise technique and purpose for exercises. Skilled judgment was provided in selection of appropriate interventions. Correct performance of therapeutic exercises was facilitated with verbal and visual cuing. Neuromuscular Re-Education: 1: L SLS ball toss into rebounder 2x10 2: BOSU step ups 2x10 LLE in parallel bars Skilled Intervention: Skilled judgment used to assess appropriate program for balance and coordination activity. Self-Fpc Management: 1: *Discussed returning to work and modifications that may need to be made in order to complete tasks and decrease irritation to L knee especially when using various mowers. Skilled Intervention: Skilled judgment in the selection of proper modification for activity of daily living/home management based on clinical presentation, deficits, and needs. Reviewed patient specific diagnosis in relation to activities of daily living/home management. Billing Therapeutic Exercise Treatment Minutes: 30 Neuromuscular Re-Education Treatment Minutes: 10 Self-Care/Home Management Treatment Minutes: 5 Total Treatment Time Minutes (timed/untimed): 45 Mana Escobar, [employer] ATTENDANT Quang Lyle, PT [facility] 02-07-2023 History of Present illness Narrative Episode Visit Count: 13 Therapist That Will Accept/Oversee The Plan Of Care: Nora Salazar Start of Care Date: 12/25/22 Onset Date: 12/04/22 Plan of Care Certification Date: 01/24/23 Next Certification Due Date: 02/28/23 Patient Identified by Name and Date of : Yes REHABILITATION AND SPORTS THERAPY PHYSICAL THERAPY TREATMENT NOTE ASSESSMENT: Thomas Pierson tolerated the session with fatigue and expected muscle soreness. He demonstrated improvements in technique with physioball wall squats. The patient will continue to benefit from ongoing skilled physical therapy to progress toward set goals. PLAN FOR NEXT VISIT: Continue with quad strengthening to help ease functional tasks as pt returns back to work soon. SUBJECTIVE: Patient Reason for Visit: Pt reports that his knee is not hurting as much as it was. Pt states that he was doing some yard work and had increased swelling. Pain: Pain Pain Level: 0 Pain Location: Knee - Left Post Treatment Pain Post Treatment Pain Level: No Change Post Treatment Pain Location: Knee - Left OBJECTIVE MEASURES WITH LEVEL OF FUNCTION: Good technique noted with eccentric quads without compensations. TREATMENT: Therapeutic Exercise: 1: Upright bike seat 8 full revolutions 6 min level 3 (subjective taken) 2: prone HS curls 2x15 LLE 3: physioball wall squats 2x10 4: Lunges on BOSU 2x10 B 5: 1/2 Kneeling on foam with RLE 2x5 with push off using BUE on LLE for return to standing 6: Eccentric quads 1x10 on 4 inch step, 1x10 on 6 inch step with UE assist on parallel bars for balance 7: leg press #88 2x15 Skilled Intervention: Patient was educated in proper exercise technique and purpose for exercises. Skilled judgment was provided in selection of appropriate interventions. Correct performance of therapeutic exercises was facilitated with verbal and visual cuing. Neuromuscular Re-Education: 1: L SLS ball toss into rebounder 2x10 2: BOSU step ups 2x10 LLE in parallel bars Skilled Intervention: Skilled judgment used to assess appropriate program for balance and coordination activity. Self-Fpc Management: 1: *Discussed returning to work and modifications that may need to be made in order to complete tasks and decrease irritation to L knee especially when using various mowers. Skilled Intervention: Skilled judgment in the selection of proper modification for activity of daily living/home management based on clinical presentation, deficits, and needs. Reviewed patient specific diagnosis in relation to activities of daily living/home management. Billing Therapeutic Exercise Treatment Minutes: 30 Neuromuscular Re-Education Treatment Minutes: 10 Self-Care/Home Management Treatment Minutes: 5 Total Treatment Time Minutes (timed/untimed): 45 EVI Mancilla PT documented in this encounter [facility] 01-31-2023 Note HNO ID: [id number] Author: Nora Salazar PT Service: ? Author Type: Physical Therapist Type: Progress Notes Filed: 01/31/2023 1:24 PM Note Text: Episode Visit Count: 12 Therapist That Will Accept/Oversee The Plan Of Care: Nora Salazar Start of Care Date: 12/25/22 Onset Date: 12/04/22 Plan of Care Certification Date: 01/24/23 Next Certification Due Date: 02/28/23 REHABILITATION AND SPORTS THERAPY PHYSICAL THERAPY TREATMENT NOTE ASSESSMENT: Thomas Pierson tolerated the session with increased symptoms. He demonstrated difficulty with L knee flexion AROM initially due to stiffness but this improved with repeated reps. . The patient will continue to benefit from ongoing skilled physical therapy to progress toward set goals. PLAN FOR NEXT VISIT: Continue functional strengthening. SUBJECTIVE: Patient Reason for Visit: Ice and elevation reduces pain, but does not reduce swelling per pt. report. Mornings are worse. Loosens up with HEP exercises. Pt. thinks that swelling is restricting his flexion. Pain: Pain Pain Level: 0 Pain Location: Knee - Left Description: Sore, Stiffness Post Treatment Pain Post Treatment Pain Location: Knee - Left OBJECTIVE MEASURES WITH LEVEL OF FUNCTION: LE PROM L Knee Flexion: 120 Degrees TREATMENT: Therapeutic Exercise: 1: Upright bike seat 8 full revolutions 5 min level 3 (subjective taken: discussed elevation and applying ice to reduce pain and swelling.) 2: TKE 2x20 LLE ball on wall (tactile cues at shoulders to avoid trunk flexion) 3: prone HS curls 2x15 LLE 4: Physioball wall squats to 25% x10, 50% x10 5: supine heel slide AROM 2x10 L (AROM improved from 115 to) 6: leg press #64 1x12 7: leg press #88 2x12 Skilled Intervention: Patient was educated in proper exercise technique and purpose for exercises. Reviewed and educated patient on additions/changes for home exercise program as above (*). Skilled judgment was provided in selection of appropriate interventions. Correct performance of therapeutic exercises was facilitated with verbal and visual cuing. Educated patient on rationale for performing exercises in regards to decreasing fatigue , increase ease of ADL, and ROM and function . Patient education as noted. Neuromuscular Re-Education: 1: BOSU ball step up and over 2x20, x1-2 UE at // bars Skilled Intervention: Skilled judgment used to assess appropriate program for balance and coordination activity. Education in proprioceptive/kinesthetic awareness during dynamic activities. Ensured patient safety with use of // bars within reach and therapist guarding. Reviewed and educated patient on additions/changes for home program as noted above with an (*). Patient education as noted. Billing Therapeutic Exercise Treatment Minutes: 32 Neuromuscular Re-Education Treatment Minutes: 8 Total Treatment Time Minutes (timed/untimed): 40 Nora Salazar, PT [facility] 01-31-2023 History of Present illness Narrative Episode Visit Count: 12 Therapist That Will Accept/Oversee The Plan Of Care: Nora Salazar Start of Care Date: 12/25/22 Onset Date: 12/04/22 Plan of Care Certification Date: 01/24/23 Next Certification Due Date: 02/28/23 REHABILITATION AND SPORTS THERAPY PHYSICAL THERAPY TREATMENT NOTE ASSESSMENT: Thomas Pierson tolerated the session with increased symptoms. He demonstrated difficulty with L knee flexion AROM initially due to stiffness but this improved with repeated reps. . The patient will continue to benefit from ongoing skilled physical therapy to progress toward set goals. PLAN FOR NEXT VISIT: Continue functional strengthening. SUBJECTIVE: Patient Reason for Visit: Ice and elevation reduces pain, but does not reduce swelling per pt. report. Mornings are worse. Loosens up with HEP exercises. Pt. thinks that swelling is restricting his flexion. Pain: Pain Pain Level: 0 Pain Location: Knee - Left Description: Sore, Stiffness Post Treatment Pain Post Treatment Pain Location: Knee - Left OBJECTIVE MEASURES WITH LEVEL OF FUNCTION: LE PROM L Knee Flexion: 120 Degrees TREATMENT: Therapeutic Exercise: 1: Upright bike seat 8 full revolutions 5 min level 3 (subjective taken: discussed elevation and applying ice to reduce pain and swelling.) 2: TKE 2x20 LLE ball on wall (tactile cues at shoulders to avoid trunk flexion) 3: prone HS curls 2x15 LLE 4: Physioball wall squats to 25% x10, 50% x10 5: supine heel slide AROM 2x10 L (AROM improved from 115 to) 6: leg press #64 1x12 7: leg press #88 2x12 Skilled Intervention: Patient was educated in proper exercise technique and purpose for exercises. Reviewed and educated patient on additions/changes for home exercise program as above (*). Skilled judgment was provided in selection of appropriate interventions. Correct performance of therapeutic exercises was facilitated with verbal and visual cuing. Educated patient on rationale for performing exercises in regards to decreasing fatigue , increase ease of ADL, and ROM and function . Patient education as noted. Neuromuscular Re-Education: 1: BOSU ball step up and over 2x20, x1-2 UE at // bars Skilled Intervention: Skilled judgment used to assess appropriate program for balance and coordination activity. Education in proprioceptive/kinesthetic awareness during dynamic activities. Ensured patient safety with use of // bars within reach and therapist guarding. Reviewed and educated patient on additions/changes for home program as noted above with an (*). Patient education as noted. Billing Therapeutic Exercise Treatment Minutes: 32 Neuromuscular Re-Education Treatment Minutes: 8 Total Treatment Time Minutes (timed/untimed): 40 Nora Salazar PT documented in this encounter [facility] 01-29-2023 Note HNO ID: [id number] Author: Nora Salazar PT Service: ? Author Type: Physical Therapist Type: Progress Notes Filed: 01/29/2023 12:41 PM Note Text: Episode Visit Count: 11 Therapist That Will Accept/Oversee The Plan Of Care: Nora Salazar Start of Care Date: 12/25/22 Onset Date: 12/04/22 Plan of Care Certification Date: 01/24/23 Next Certification Due Date: 02/28/23 Patient Identified by Name and Date of : Yes REHABILITATION AND SPORTS THERAPY PHYSICAL THERAPY TREATMENT NOTE ASSESSMENT: Thomas Pierson tolerated the session with fatigue and expected muscle soreness. He demonstrated improvements in L knee extension. The patient will continue to benefit from ongoing skilled physical therapy to progress toward set goals. PLAN FOR NEXT VISIT: continue with extension and quad emphasis SUBJECTIVE: Patient Reason for Visit: Pt reports that his knee feels weird and like it has fluid in it, mushy and spongy like per pt. Pt states he is starting to sleep better at night. Pain: Pain Pain Level: 0 Pain Location: Knee - Left Post Treatment Pain Post Treatment Pain Level: No Change Post Treatment Pain Location: Knee - Left OBJECTIVE MEASURES WITH LEVEL OF FUNCTION: LE AROM L Knee Extension: -5 Degrees TREATMENT: Therapeutic Exercise: 1: Upright bike seat 8 full revolutions 5 min level 2 (subjective taken: discussed poor pain management and lack of sleep) 2: seated quad set, hips 90, heel supported on chair 10x10 sec hold LLE 3: LAQ 3x10 LLE 4: Step downs on 6 inch step with UE support at parallel bars 3x12 5: Squats 3x10 Skilled Intervention: Patient was educated in proper exercise technique and purpose for exercises. Skilled judgment was provided in selection of appropriate interventions. Correct performance of therapeutic exercises was facilitated with verbal and visual cuing. Gait Training: Distance (feet): 300 Gait Cues: heel strike, toe push off, maintain L knee extension during mid stance LLE Assistive Device: none Assist Level: supervision, verbal cues, and use of mirror Skilled Intervention: Patient was provided supervision during pre-gait/gait training to prevent falls and insure safety. Facilitated proper gait cycle with the use of verbal and visual cues for correction of gait deviations identified in the objective section above. Billing Therapeutic Exercise Treatment Minutes: 32 Gait Training Treatment Minutes: 8 Total Treatment Time Minutes (timed/untimed): 40 Mana Escobar, EVI Salazar, PT [facility] 01-24-2023 Note HNO ID: [id number] Author: Nora Salazar PT Service: ? Author Type: Physical Therapist Type: Progress Notes Filed: 01/24/2023 11:12 AM Note Text: Episode Visit Count: 10 Therapist That Will Accept/Oversee The Plan Of Care: Nora Salazar Start of Care Date: 12/25/22 Onset Date: 12/04/22 Plan of Care Certification Date: 01/24/23 Next Certification Due Date: 02/28/23 REHABILITATION AND SPORTS THERAPY PHYSICAL THERAPY PROGRESS REPORT PLAN OF CARE UPDATE: Assessment: Thomas Pierson demonstrates improvements in sitting, rising from a chair, standing, walking, walking in the house, walking in the community, stair negotiation, bending, and weight bearing. He has progressed toward goals. Patient continues to present with impairments in balance, flexibility, gait, independence in exercise, joint mobility, overall function, patient reported outcome measures, range of motion, strength, symptom management, tissue tenderness, and functional performance testing indicates L quadriceps weakness that interferes with working, sleeping, driving, dressing, lifting, squatting, kneeling . Current prognosis is Good due to: current objective clinical presentation, good support system/ coping skills, good overall health status, acuteness of condition, within-session changes . He will benefit from continued skilled therapy services to meet the updated goals for this plan of care as noted below. Goals for Episode of Care: created on 12/25/22 through 02/19/23 Goals updated on 01/24/2023 through 02/28/2023 [place] in home exercise program. -- MET Patient will increase active ROM of L knee 0 degrees of extension to 115 degrees of flexion to allow pt to to improve performance of ADLs and to improve gait mechanics / gait pattern . -- PROGRESSING Patient will demonstrate increase in L quadriceps and L hamstring strength to 4/5 during manual muscle testing in order to improve function for prior functional tasks. -- PROGRESSING Perform stairs with reciprocal pattern ascending and descending (x4)6 therapy steps with or without HR and without AD with decreased report of symptoms/pain in 8 weeks. -- PROGRESSING Patient will improve 30 sec sit <> stand to 14 reps or greater to demonstrate improvement in functional lower extremity strength. -- MET, 19 reps Patient Goals: improve functional strength and mobility of L knee to return to PLOF ambuation and ADLs without AD or limitation due to knee Pain -- PROGRESSING Patient Goals: improve functional strength and mobility of L knee to return to PLOF ambuation and ADLs without AD or limitation due to knee pain Planned Interventions, Frequency, and Duration: 2x/week, 5 weeks Total Number of Visits Planned: 10 Patient to be seen for Therapeutic exercise (86677), Neuromuscular re-education (67072), Manual therapy (35344), Therapeutic activities (95556), Self-half-way management (82132), Gait Training (41345), Patient/Family/Caregiver Education, Body Mechanics Training PLAN FOR NEXT VISIT: do not add resistance to seated LAQ until pt. is able to complete without quad lag SUBJECTIVE: Patient Reason for Visit: Presents without cane today. He continues to have pain at night limiting his sleep. He has tried taking medication for sleeping and applying ice before going to bed. The sleeping medication improved his sleep somewhat but he continued to be limited due to L knee pain. He had informed his doctor of his pain. He continues to amb with a limp.. Patient Goals: improve functional strength and mobility of L knee to return to PLOF ambuation and ADLs without AD or limitation due to knee pain Functional Limitations: working, sleeping, driving, dressing, lifting, squatting, kneeling Pain: Pain Pain Level: (does not rate) Pain Location: Knee - Left Post Treatment Pain Post Treatment Pain Level: 6 Post Treatment Pain Location: Knee - Left PROMIS Scales T-scores: mean of general population = 50. 5 points is clinically meaningfully difference Percentiles provide an indication of how the patient's score ranks in relation to the general population. Higher percentile rankings indicate better function/quality of life. 50th percentile is the average of the general population and indicates half of respondents had a worse score. OBJECTIVE MEASURES WITH LEVEL OF FUNCTION: LE AROM L Knee Extension: -10 Degrees L Knee Flexion: 120 Degrees LE PROM L Knee Extension: 0 Degrees (seated in chair, heel supported hips 90. PROM with PT over pressure) L Knee Flexion: 120 Degrees Functional Performance Test Results 30 Second Chair Stand Test: 19 reps TREATMENT: Therapeutic Exercise: 1: Upright bike seat 8 full revolutions 5 min level 2 (subjective taken: discussed poor pain management and lack of sleep) 2: supine heel slides AAROM L knee 10x10 sec hold (measurement taken) 4: Step downs on 6 inch step with UE support at parall (more content not included)... [facility] 01-24-2023 History of Present illness Narrative Episode Visit Count: 10 Therapist That Will Accept/Oversee The Plan Of Care: Nora Salazar Start of Care Date: 12/25/22 Onset Date: 12/04/22 Plan of Care Certification Date: 01/24/23 Next Certification Due Date: 02/28/23 REHABILITATION AND SPORTS THERAPY PHYSICAL THERAPY PROGRESS REPORT PLAN OF CARE UPDATE: Assessment: Thomas Pierson demonstrates improvements in sitting, rising from a chair, standing, walking, walking in the house, walking in the community, stair negotiation, bending, and weight bearing. He has progressed toward goals. Patient continues to present with impairments in balance, flexibility, gait, independence in exercise, joint mobility, overall function, patient reported outcome measures, range of motion, strength, symptom management, tissue tenderness, and functional performance testing indicates L quadriceps weakness that interferes with working, sleeping, driving, dressing, lifting, squatting, kneeling . Current prognosis is Good due to: current objective clinical presentation, good support system/ coping skills, good overall health status, acuteness of condition, within-session changes . He will benefit from continued skilled therapy services to meet the updated goals for this plan of care as noted below. Goals for Episode of Care: created on 12/25/22 through 02/19/23 Goals updated on 01/24/2023 through 02/28/2023 [place] in home exercise program. -- MET Patient will increase active ROM of L knee 0 degrees of extension to 115 degrees of flexion to allow pt to to improve performance of ADLs and to improve gait mechanics / gait pattern . -- PROGRESSING Patient will demonstrate increase in L quadriceps and L hamstring strength to 4/5 during manual muscle testing in order to improve function for prior functional tasks. -- PROGRESSING Perform stairs with reciprocal pattern ascending and descending (x4)6 therapy steps with or without HR and without AD with decreased report of symptoms/pain in 8 weeks. -- PROGRESSING Patient will improve 30 sec sit <> stand to 14 reps or greater to demonstrate improvement in functional lower extremity strength. -- MET, 19 reps Patient Goals: improve functional strength and mobility of L knee to return to PLOF ambuation and ADLs without AD or limitation due to knee Pain -- PROGRESSING Patient Goals: improve functional strength and mobility of L knee to return to PLOF ambuation and ADLs without AD or limitation due to knee pain Planned Interventions, Frequency, and Duration: 2x/week, 5 weeks Total Number of Visits Planned: 10 Patient to be seen for Therapeutic exercise (62367), Neuromuscular re-education (95900), Manual therapy (00932), Therapeutic activities (30878), Self-half-way management (96704), Gait Training (86843), Patient/Family/Caregiver Education, Body Mechanics Training PLAN FOR NEXT VISIT: do not add resistance to seated LAQ until pt. is able to complete without quad lag SUBJECTIVE: Patient Reason for Visit: Presents without cane today. He continues to have pain at night limiting his sleep. He has tried taking medication for sleeping and applying ice before going to bed. The sleeping medication improved his sleep somewhat but he continued to be limited due to L knee pain. He had informed his doctor of his pain. He continues to amb with a limp.. Patient Goals: improve functional strength and mobility of L knee to return to PLOF ambuation and ADLs without AD or limitation due to knee pain Functional Limitations: working, sleeping, driving, dressing, lifting, squatting, kneeling Pain: Pain Pain Level: (does not rate) Pain Location: Knee - Left Post Treatment Pain Post Treatment Pain Level: 6 Post Treatment Pain Location: Knee - Left PROMIS Scales T-scores: mean of general population = 50. 5 points is clinically meaningfully difference Percentiles provide an indication of how the patient's score ranks in relation to the general population. Higher percentile rankings indicate better function/quality of life. 50th percentile is the average of the general population and indicates half of respondents had a worse score. OBJECTIVE MEASURES WITH LEVEL OF FUNCTION: LE AROM L Knee Extension: -10 Degrees L Knee Flexion: 120 Degrees LE PROM L Knee Extension: 0 Degrees (seated in chair, heel supported hips 90. PROM with PT over pressure) L Knee Flexion: 120 Degrees Functional Performance Test Results 30 Second Chair Stand Test: 19 reps TREATMENT: Therapeutic Exercise: 1: Upright bike seat 8 full revolutions 5 min level 2 (subjective taken: discussed poor pain management and lack of sleep) 2: supine heel slides AAROM L knee 10x10 sec hold (measurement taken) 4: Step downs on 6 inch step with UE support at parallel bars 2x10 5: *active LAQ 3x10 LLE -- at least 5x a day, 1-2 sets of 10 (measurement taken: -10 after first set of 10 reps, reviewed correct technique) 6: 30 sec sit <> stand 7: *seated quad set, hips 90, heel supported on chair 10x10 sec hold LLE -- at least 3 times a day 8: seated in chair, heel supported hips 90. PROM with PT over pressure extension endrange 3x10 sec Skilled Intervention: Patient was educated in proper exercise technique and purpose for exercises. Skilled judgment was provided in selection of appropriate interventions. Correct performance of therapeutic exercises was facilitated with verbal, visual, and tactile cuing. Additional time necessary for assessing progress toward goals due to PN completed today. Educated patient on rationale for performing exercises in regards to decreasing fatigue , increase ease of ADL, and ROM and function . Patient education as noted. Gait Training: Distance (feet): 200 Gait Cues: heel strike, toe push off, maintain L knee extension during mid stance LLE Assistive Device: none Assist Level: supervision and verbal cues Skilled Intervention: Patient was provided supervision during pre-gait/gait training to prevent falls and insure safety. Facilitated proper gait cycle with the use of verbal and visual cues for correction of gait deviations identified in the objective section above. Reviewed and educated patient on additions/changes for home program as noted above with an (*). Correct performance of home program was facilitated with verbal and visual cueing. Self-Fpc Management: 1: *encouraged continued stretching in L knee flexion and extension to maintain progress. Skilled Intervention: Skilled judgment in the selection of proper modification for activity of daily living/home management based on clinical presentation, deficits, and needs. Reviewed patient specific diagnosis in relation to activities of daily living/home management. Activity progression based on professional judgement. Reviewed and educated patient on additions/changes for home program as noted above with an (*). Correct performance of home program was facilitated with verbal and visual cueing. Billing Therapeutic Exercise Treatment Minutes: 25 Self-Care/Home Management Treatment Minutes: 5 Gait Training Treatment Minutes: 10 Total Treatment Time Minutes (timed/untimed): 40 Nora Salazar PT documented in this encounter [facility] 01-22-2023 Note HNO ID: [id number] Author: Nora Salazar PT Service: ? Author Type: Physical Therapist Type: Progress Notes Filed: 01/22/2023 1:46 PM Note Text: Episode Visit Count: 9 Therapist That Will Accept/Oversee The Plan Of Care: Nora Salazar Start of Care Date: 12/25/22 Onset Date: 12/04/22 Plan of Care Certification Date: 12/25/22 Next Certification Due Date: 01/29/23 Patient Identified by Name and Date of : Yes REHABILITATION AND SPORTS THERAPY PHYSICAL THERAPY TREATMENT NOTE ASSESSMENT: Thomas Pierson tolerated the session with fatigue and expected muscle soreness. He demonstrated improvements in technique with squats. The patient will continue to benefit from ongoing skilled physical therapy to progress toward set goals. PLAN FOR NEXT VISIT: SLS on foam SUBJECTIVE: Patient Reason for Visit: Pt reports that his knee is stiff and sore. Pt reports that he is having difficulty lseeping due to the pain. Pain: Pain Pain Level: (no value given) Pain Location: Knee - Left Description: Sore, Stiffness Post Treatment Pain Post Treatment Pain Level: No Change Post Treatment Pain Location: Knee - Left OBJECTIVE MEASURES WITH LEVEL OF FUNCTION: LE PROM L Knee Flexion: 120 Degrees TREATMENT: Therapeutic Exercise: 1: Upright bike seat 8 half revs, progressing to full revolutions x 5 min (subjective taken) 2: supine heel slides 1x10 sec hold + 1x5-10 sec hold AAROM with strap (measurement taken) 3: Squats at parallel bars 2x10 4: Step downs on 6 inch step with UE support at parallel bars 2x10 5: LAQ 2x10 with 2# Skilled Intervention: Patient was educated in proper exercise technique and purpose for exercises. Skilled judgment was provided in selection of appropriate interventions. Correct performance of therapeutic exercises was facilitated with verbal and visual cuing. Neuromuscular Re-Education: 1: BOSU ball step ups forward 2x15 each LE lead BUE on // bars 2: BOSU ball step up and over 2x15 each LE lead BUE on // bars 3: L SLS 1x16 seconds, 1x 30 seconds with occasional support on bars Skilled Intervention: Skilled judgment used to assess appropriate program for balance and coordination activity. Billing Therapeutic Exercise Treatment Minutes: 25 Neuromuscular Re-Education Treatment Minutes: 15 Total Treatment Time Minutes (timed/untimed): 40 Mana Escobar, [employer] ATTEND[employer] Nora Salazar, PT [facility] 01-22-2023 History of Present illness Narrative Episode Visit Count: 9 Therapist That Will Accept/Oversee The Plan Of Care: Nora Salazar Start of Care Date: 12/25/22 Onset Date: 12/04/22 Plan of Care Certification Date: 12/25/22 Next Certification Due Date: 01/29/23 Patient Identified by Name and Date of : Yes REHABILITATION AND SPORTS THERAPY PHYSICAL THERAPY TREATMENT NOTE ASSESSMENT: Thomas Pierson tolerated the session with fatigue and expected muscle soreness. He demonstrated improvements in technique with squats. The patient will continue to benefit from ongoing skilled physical therapy to progress toward set goals. PLAN FOR NEXT VISIT: SLS on foam SUBJECTIVE: Patient Reason for Visit: Pt reports that his knee is stiff and sore. Pt reports that he is having difficulty lseeping due to the pain. Pain: Pain Pain Level: (no value given) Pain Location: Knee - Left Description: Sore, Stiffness Post Treatment Pain Post Treatment Pain Level: No Change Post Treatment Pain Location: Knee - Left OBJECTIVE MEASURES WITH LEVEL OF FUNCTION: LE PROM L Knee Flexion: 120 Degrees TREATMENT: Therapeutic Exercise: 1: Upright bike seat 8 half revs, progressing to full revolutions x 5 min (subjective taken) 2: supine heel slides 1x10 sec hold + 1x5-10 sec hold AAROM with strap (measurement taken) 3: Squats at parallel bars 2x10 4: Step downs on 6 inch step with UE support at parallel bars 2x10 5: LAQ 2x10 with 2# Skilled Intervention: Patient was educated in proper exercise technique and purpose for exercises. Skilled judgment was provided in selection of appropriate interventions. Correct performance of therapeutic exercises was facilitated with verbal and visual cuing. Neuromuscular Re-Education: 1: BOSU ball step ups forward 2x15 each LE lead BUE on // bars 2: BOSU ball step up and over 2x15 each LE lead BUE on // bars 3: L SLS 1x16 seconds, 1x 30 seconds with occasional support on bars Skilled Intervention: Skilled judgment used to assess appropriate program for balance and coordination activity. Billing Therapeutic Exercise Treatment Minutes: 25 Neuromuscular Re-Education Treatment Minutes: 15 Total Treatment Time Minutes (timed/untimed): 40 EVI Mancilla PT documented in this encounter [facility] 01-18-2023 Miscellaneous Notes Pt calling He was asking if he can use Salon pas on his knee since he was advised he could use voltaren gel Spoke with pt Advised he could use the patches, just not directly on his incision, either on the sides or above or below, giving about a 2 inch border away from the scar documented in this encounter [facility] 01-17-2023 Note HNO ID: [id number] Author: Nora Salazar PT Service: ? Author Type: Physical Therapist Type: Progress Notes Filed: 01/17/2023 1:42 PM Note Text: Episode Visit Count: 8 Therapist That Will Accept/Oversee The Plan Of Care: Nora Salazar Start of Care Date: 12/25/22 Onset Date: 12/04/22 Plan of Care Certification Date: 12/25/22 Next Certification Due Date: 01/29/23 REHABILITATION AND SPORTS THERAPY PHYSICAL THERAPY TREATMENT NOTE ASSESSMENT: Thomas Pierson tolerated the session with expected muscle soreness. He demonstrated improvements in AAROM L knee flexion using heel strap to 120 degrees. Requires encouragement to stretch to endrange of tolerance. . The patient will continue to benefit from ongoing skilled physical therapy to progress toward set goals. PLAN FOR NEXT VISIT: SLS on foam SUBJECTIVE: Patient Reason for Visit: Continues to have anterior knee pain with flexion. He was advised by physician to try topical medication, but pt. reports this has not been helpful to reduce pain. He is doing HEP 2x/day. Pain: Pain Pain Level: 5 Pain Location: Knee - Left Description: Sore, Stiffness Post Treatment Pain Post Treatment Pain Level: Better Post Treatment Pain Location: Knee - Left OBJECTIVE MEASURES WITH LEVEL OF FUNCTION: LE PROM L Knee Flexion: 120 Degrees TREATMENT: Therapeutic Exercise: 1: Upright bike seat 8 half revs, progressing to full revolutions x 5 min (subjective taken) 2: supine heel slides 1x10 sec hold + 1x5-10 sec hold AAROM with strap (measurement taken) 3: prone quad stretch LLE 3x30 sec with strap Skilled Intervention: Patient was educated in proper exercise technique and purpose for exercises. Skilled judgment was provided in selection of appropriate interventions. Correct performance of therapeutic exercises was facilitated with verbal, visual, and tactile cuing. Educated patient on rationale for performing exercises in regards to decreasing fatigue , including balance, increase ease of ADL, and ROM and function . Neuromuscular Re-Education: 1: BOSU ball step ups forward 2x15 each LE lead BUE on // bars 2: BOSU ball step up and over 2x15 each LE lead BUE on // bars 3: walking in // bars alt HS curls 20' 6x Skilled Intervention: Skilled judgment used to assess appropriate program for balance and coordination activity. Education in proprioceptive/kinesthetic awareness during standing and dynamic activities. Reviewed and educated patient on additions/changes for home program as noted above with an (*). Patient education as noted. Gait Training: Distance (feet): 40' 6x Gait Cues: heel strike and toe push off LLE Assistive Device: none Assist Level: supervision Skilled Intervention: Gait belt utilized during session for safety. Reviewed and educated patient on additions/changes for home program as noted above with an (*). Correct performance of home program was facilitated with verbal, visual, and tactile cueing. Billing Therapeutic Exercise Treatment Minutes: 10 Neuromuscular Re-Education Treatment Minutes: 15 Gait Training Treatment Minutes: 15 Total Treatment Time Minutes (timed/untimed): 40 Nora Salazar PT [facility] 01-16-2023 Note HNO ID: [id number] Author: Shannan Guthrie MD Service: ? Author Type: Physician Type: Progress Notes Filed: 01/16/2023 2:08 PM Note Text: Post-op Office Visit Thomas Pierson 62 year old January 16, 2023 1:31 PM Surgery Date: 12/04/22 History: Thomas Pierson Is now 6 weeks out from left TKA. Post-operative course has been without complication. Subjective: Patient reports improving pain. Overall is doing well. cane ambulatory aid weaning opioid pain medication Objective: Ambulates with cane Incision well-approximated, no drainage, normal bhumi-incisional erythema ROM 5 - 115 Distally DP/PT palpable Distally S/S/SP/DP/T intact at baseline Distally DF/EHL/PF intact at baseline Negative alma/calf tenderness Xrays: No new today Assessment and Plan: Thomas Piersno Is here for a second post-op appointment, overall doing well -continued ice, rest, and use of non-narcotic analgesia as needed -discussed home exercises -WBAT on operative extremity -continue ankle pumps and dvt ppx through 4 weeks -We will see back at the end of February to clear for return to [facility] in March -discussed red flag symptoms of acutely increasing pain, new erythema, new swelling, drainage, shortness of breath Shannan Guthrie MD Orthopaedic Surgery [facility] 01-16-2023 History of Present illness Narrative Post-op Office Visit Thomas Pierson 62 year old January 16, 2023 1:31 PM Surgery Date: 12/04/22 History: Thomas Pierson Is now 6 weeks out from left TKA. Post-operative course has been without complication. Subjective: Patient reports improving pain. Overall is doing well. cane ambulatory aid weaning opioid pain medication Objective: Ambulates with cane Incision well-approximated, no drainage, normal bhumi-incisional erythema ROM 5 - 115 Distally DP/PT palpable Distally S/S/SP/DP/T intact at baseline Distally DF/EHL/PF intact at baseline Negative alma/calf tenderness Xrays: No new today Assessment and Plan: Thomas Pierson Is here for a second post-op appointment, overall doing well -continued ice, rest, and use of non-narcotic analgesia as needed -discussed home exercises -WBAT on operative extremity -continue ankle pumps and dvt ppx through 4 weeks -We will see back at the end of February to clear for return to [facility] in March -discussed red flag symptoms of acutely increasing pain, new erythema, new swelling, drainage, shortness of breath Shannan Guthrie MD Orthopaedic Surgery documented in this encounter [facility] 01-15-2023 Note HNO ID: [id number] Author: Nora Salazar PT Service: ? Author Type: Physical Therapist Type: Progress Notes Filed: 01/15/2023 2:18 PM Note Text: Episode Visit Count: 7 Therapist That Will Accept/Oversee The Plan Of Care: Nora Salazar Start of Care Date: 12/25/22 Onset Date: 12/04/22 Plan of Care Certification Date: 12/25/22 Next Certification Due Date: 01/29/23 Patient Identified by Name and Date of : Yes REHABILITATION AND SPORTS THERAPY PHYSICAL THERAPY TREATMENT NOTE ASSESSMENT: Thomas Pierson tolerated the session with fatigue and expected muscle soreness. He demonstrated difficulty with mini squats . The patient will continue to benefit from ongoing skilled physical therapy to progress toward set goals. PLAN FOR NEXT VISIT: Continue progressing quadriceps and hamstring strengthening, and knee AROM. SUBJECTIVE: Patient Reason for Visit: Pt reports that his L knee is very stiff and sore today and painful. Pt reports having stabbing pain in mid patella the whole way through, more frequent at night. Pt states swelling in L foot today. Pain: Pain Pain Level: 5 Pain Location: Knee - Left Description: Sore, Stiffness Post Treatment Pain Post Treatment Pain Level: Better Post Treatment Pain Location: Knee - Left Post Treatment Symptoms: Pt stated less pain and increased flexibility at end of session. OBJECTIVE MEASURES WITH LEVEL OF FUNCTION: LE AROM L Knee Extension: 0 Degrees L Knee Flexion: 120 Degrees TREATMENT: Therapeutic Exercise: 1: Upright bike seat 8 partial revolutions for 5 minutes (subjective collected) 2: Long sitting heel slide 2x10 3: Quad sets 2x10 4: Forward step ups on blue step 2x10 LLE 5: lateral Step ups green step 2x10 LLE 6: Steps downs on green step 1x10 LLE 7: TKE with BTB 2x10 8: Standing mini squats at parallel bars 2x10 (Tactile cueing and use of mirror given at R hip to shift weight laterally to L to increase equal weight bearing on BLE) 9: Seated hamstring stretch 3x30 seconds (verbal, visual, and tactile cues for technique) 10: LAQ 2x12 11: Seated HS curls with GTB 2x10 Skilled Intervention: Patient was educated in proper exercise technique and purpose for exercises. Skilled judgment was provided in selection of appropriate interventions. Correct performance of therapeutic exercises was facilitated with verbal, visual, and tactile cuing. Billing Therapeutic Exercise Treatment Minutes: 40 Total Treatment Time Minutes (timed/untimed): 40 Mana Escobar, EVI Salazar, PT [facility] 01-10-2023 Note HNO ID: [id number] Author: Nora Salazar PT Service: ? Author Type: Physical Therapist Type: Progress Notes Filed: 01/10/2023 3:31 PM Note Text: Episode Visit Count: 6 Therapist That Will Accept/Oversee The Plan Of Care: Nora Salazar Start of Care Date: 12/25/22 Onset Date: 12/04/22 Plan of Care Certification Date: 12/25/22 Next Certification Due Date: 01/29/23 Patient Identified by Name and Date of : Yes REHABILITATION AND SPORTS THERAPY PHYSICAL THERAPY TREATMENT NOTE ASSESSMENT: Thomas Pierson tolerated the session with decreased symptoms. He demonstrated difficulty with step downs . The patient will continue to benefit from ongoing skilled physical therapy to progress toward set goals. PLAN FOR NEXT VISIT: Continue progressing quadriceps and hamstring strengthening, and knee AROM. Trial upright bike SUBJECTIVE: Patient Reason for Visit: Pt reports that his L knee is very stiff and sore today. Pt states his knee feels good during therapy, but afterwards it really stiffens up. Pain: Pain Pain Level: 6 Pain Location: Knee - Left Description: Sore, Stiffness Post Treatment Pain Post Treatment Pain Level: Better Post Treatment Pain Location: Knee - Left OBJECTIVE MEASURES WITH LEVEL OF FUNCTION: LE AROM L Knee Extension: 0 Degrees L Knee Flexion: 120 Degrees TREATMENT: Therapeutic Exercise: 1: SciFit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 RLE off of step.) 6: Seated hamstring curls with GTB 2x10 7: *STS 1x10 without hands, 1x10 with hands and use of mirror for visual feedback as pt was leaning to R to get off of LLE Skilled Intervention: Patient was educated in proper exercise technique and purpose for exercises. Reviewed and educated patient on additions/changes for home exercise program as above (*). Skilled judgment was provided in selection of appropriate interventions. Correct performance of therapeutic exercises was facilitated with verbal and visual cuing. Gait Training: Assistive Device: cane 1: Gait training with standard cane x 200 ft with verbal and visual ueing wiht use of mirror to increase knee flexion with push off Skilled Intervention: Patient was provided stand by assist during pre-gait/gait training to prevent falls and insure safety. Facilitated proper gait cycle with the use of verbal and visual cues for correction of gait deviations identified in the objective section above. Gait belt utilized during session for safety. Billing Therapeutic Exercise Treatment Minutes: 30 Gait Training Treatment Minutes: 10 Total Treatment Time Minutes (timed/untimed): 40 EVI Mancilla, PT [facility] 12-29-2022 History of Present illness Narrative Episode Visit Count: 2 Therapist That Will Accept/Oversee The Plan Of Care: Nora Salazar Start of Care Date: 12/25/22 Onset Date: 12/04/22 Plan of Care Certification Date: 12/25/22 Next Certification Due Date: 01/29/23 Patient Identified by Name and Date of : Yes REHABILITATION AND SPORTS THERAPY PHYSICAL THERAPY TREATMENT NOTE ASSESSMENT: Thomas Pierson tolerated the session with fatigue and expected muscle soreness. He demonstrated difficulty with equal weight distribution through BLE with STS. The patient will continue to benefit from ongoing skilled physical therapy to progress toward set goals. PLAN FOR NEXT VISIT: continue with gait and balance add additonal standing exercises. SUBJECTIVE: Patient Reason for Visit: Pt reports the he has new numbness along lateral aspect of incision that started the day after his evaluation. Pt states that he is still having difficulty sleeping. Pain: Pain Pain Level: 5 Pain Location: Knee - Left Description: Aching Post Treatment Pain Post Treatment Symptoms: Pt stated his L knee felt looser at the end of the session. OBJECTIVE MEASURES WITH LEVEL OF FUNCTION: LE AROM L Knee Extension: -4 Degrees (with quad sets) L Knee Flexion: 105 Degrees TREATMENT: Therapeutic Exercise: 1: supine heel slide 2x10 measurement taken 2: quad sets 2x10 LLE 3: SAQ 2x10 4: LAQ 2x10 LLE 5: Steps ups on 4 inch step 2x10 LLE (verbal and visual cueing given for good eccentric control on LLE with bringing RLE off of step.) 6: Seated hamstring curls with GTB 2x10 7: *STS 1x10 without hands, 1x10 with hands and use of mirror for visual feedback as pt was leaning to R to get off of LLE Skilled Intervention: Patient was educated in proper exercise technique and purpose for exercises. Reviewed and educated patient on additions/changes for home exercise program as above (*). Skilled judgment was provided in selection of appropriate interventions. Correct performance of therapeutic exercises was facilitated with verbal and visual cuing. Gait Training: Assistive Device: cane 1: Gait training with standard cane x 200 ft with verbal and visual ueing wiht use of mirror to increase knee flexion with push off Skilled Intervention: Patient was provided stand by assist during pre-gait/gait training to prevent falls and insure safety. Facilitated proper gait cycle with the use of verbal and visual cues for correction of gait deviations identified in the objective section above. Gait belt utilized during session for safety. Billing Therapeutic Exercise Treatment Minutes: 30 Gait Training Treatment Minutes: 10 Total Treatment Time Minutes (timed/untimed): 40 EVI Mancilla PT documented in this encounter [facility] 12-28-2022 Miscellaneous Notes Spoke with pt He broke his tooth off and will be going to the dentist Educated on the dental protocol for after replacements Pt is unable to wait the 3 months to have fixed Pended RX documented in this encounter [facility] 12-25-2022 Note HNO ID: [id number] Author: Nora Salazar PT Service: ? Author Type: Physical Therapist Type: Progress Notes Filed: 12/25/2022 11:37 AM Note Text: Episode Visit Count: 1 Therapist That Will Accept/Oversee The Plan Of Care: Nora Salazar Start of Care Date: 12/25/22 Onset Date: 12/04/22 Plan of Care Certification Date: 12/25/22 Next Certification Due Date: 01/29/23 Patient Identified by Name and Date of : Yes REHABILITATION AND SPORTS THERAPY PHYSICAL THERAPY EVALUATION PLAN OF CARE: Assessment: Thomas Pierson presents with diagnosis of stiffness of L knee that interferes with standing, walking in the community, bending, working, sleeping, weight bearing, bed mobility, driving, dressing, lifting, stair negotiation, walking in the house, rising from a chair, sitting, squatting, kneeling . He presents with impairments in ADL's, balance, flexibility, gait, independence in exercise, joint mobility, overall function, patient reported outcome measures, range of motion, strength, and symptom management. . Prognosis for therapy is Good due to: current objective clinical presentation, good support system/ coping skills, good overall health status, acuteness of condition, within-session changes . He will benefit from skilled therapy services to meet the goals established for this plan of care as noted below. Goals for Episode of Care: created on 12/25/22 through 02/19/23 [place] in home exercise program. Patient will increase active ROM of L knee 0 degrees of extension to 115 degrees of flexion to allow pt to to improve performance of ADLs and to improve gait mechanics / gait pattern . Patient will demonstrate increase in L quadriceps and L hamstring strength to 4/5 during manual muscle testing in order to improve function for prior functional tasks. Perform stairs with reciprocal pattern ascending and descending (x4)6 therapy steps with or without HR and without AD with decreased report of symptoms/pain in 8 weeks. Patient will improve 5 time sit to stand to demonstrate improvement in functional lower extremity strength. Patient Goals: improve functional strength and mobility of L knee to return to PLOF ambuation and ADLs without AD or limitation due to knee pain Planned Interventions, Frequency, and Duration: Current Frequency: 2x/week Duration: 8 weeks Total Number of Visits Planned: 16 Planned Treatment Interventions: Therapeutic exercise (27119), Neuromuscular re-education (66017), Manual therapy (17105), Therapeutic activities (05922), Self-half-way management (67195), Gait Training (26039), Patient/Family/Caregiver Education, Body Mechanics Training PLAN FOR NEXT VISIT: gait and balance training, step ups Patient demonstrates good understanding of plan of care and treatment. The above goals and plan of care were discussed and agreed upon by patient/family. SUBJECTIVE: Thomas Pierson is a 62 year old male seen today for for s/p L TKA 12/04/22 followed by home care PT until last week. Pt. had f/u with referring provider recently who noted no complications since surgery. Pt. is primary caregiver for his mother. 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 PROMIS Scales T-scores: mean of general population = 50. 5 points is clinically meaningfully difference Percentiles provide an indication of how the patient's score ranks in relation to the general population. Higher percentile rankings indicate better function/quality of life. 50th percentile is the average of the general population and indicates half of respondents had a worse score. T-scores: mean of general population = 50. 5 points is clinically meaningfully difference Percentiles provide an indication of how the patient's score ranks in relation to the general population. Higher percentile rankings indicate better function/quality of life. 50th percentile is the average of the general populati (more content not included)... [facility] 12-22-2022 Miscellaneous Notes SITUATION: brother present during today's visit. patient reports the following since the last homecare visit: medications/allergies--no changes, no fall. patient reports knee feels stiff but he really had been working on his walking BACKGROUND: Diagnoses (reason for Home Care): LTKR Weight Bearing/Precaution Changes: no changes ASSESSMENT: Focus of visit: reassessment/discharge Physical therapy discharged: goals achieved. Functional performance at discharge - bed mobility independent, transfers independent, ambulation independent and stairs independent. Plan of care, goals, and discharge reviewed and agreed upon with patient and/or caregiver. RECOMMENDATION: Patient discharged from home health services. Instructions to include:begin outpatient therapy on 12/25/22 See intervention summary for intervention/education details. documented in this encounter [facility] 12-19-2022 Note HNO ID: [id number] Author: Josep Gamez APRN.ALAN Service: ? Author Type: Nurse Practitioner Type: Progress Notes Filed: 12/19/2022 3:10 PM Note Text: Post-op Office Visit Thomas Pierson 62 year old December 19, 2022 3:09 PM Surgery Date: 12/04/22 History: Thomas Pierson Is now 2 weeks out from S/P Left TKA. Post-operative course has been without complication. No readmission/complications Subjective: Patient reports 6/10 pain. Overall is doing well. Crutch ambulatory aid Still taking opioid pain medication Objective: Ambulates with crutch Incision well-approximated, no drainage, normal bhumi-incisional erythema ROM 3 - 90 Distally DP/PT palpable Distally S/S/SP/DP/T intact at baseline Distally DF/EHL/PF intact at baseline Negative alma/calf tenderness Xrays: Well-positioned total knee replacement in appropriate alignment with no evidence of loosening Assessment and Plan: Thomas Pierson Is here for a first post-op appointment, overall doing well -continued ice, rest, and use of non-narcotic analgesia as needed -wean off ambulatory aids -discussed home exercises and therapy -WBAT on operative extremity -continue ankle pumps and dvt ppx through 4 weeks -discussed driving requirement: 4 weeks post-op, off narcotic pain medication, adequate brake time -will see back at 6 week appointment for clinical exam -discussed red flag symptoms of acutely increasing pain, new erythema, new swelling, drainage, shortness of breath Josep Gamez APRN.[facility] Orthopaedic Surgery [facility] 12-19-2022 History of Present illness Narrative Post-op Office Visit Thomas Pierson 62 year old December 19, 2022 3:09 PM Surgery Date: 12/04/22 History: Thomas Pierson Is now 2 weeks out from S/P Left TKA. Post-operative course has been without complication. No readmission/complications Subjective: Patient reports 6/10 pain. Overall is doing well. Crutch ambulatory aid Still taking opioid pain medication Objective: Ambulates with crutch Incision well-approximated, no drainage, normal bhumi-incisional erythema ROM 3 - 90 Distally DP/PT palpable Distally S/S/SP/DP/T intact at baseline Distally DF/EHL/PF intact at baseline Negative alma/calf tenderness Xrays: Well-positioned total knee replacement in appropriate alignment with no evidence of loosening Assessment and Plan: Thomas Pierson Is here for a first post-op appointment, overall doing well -continued ice, rest, and use of non-narcotic analgesia as needed -wean off ambulatory aids -discussed home exercises and therapy -WBAT on operative extremity -continue ankle pumps and dvt ppx through 4 weeks -discussed driving requirement: 4 weeks post-op, off narcotic pain medication, adequate brake time -will see back at 6 week appointment for clinical exam -discussed red flag symptoms of acutely increasing pain, new erythema, new swelling, drainage, shortness of breath Josep Gamez APRN.CNP Orthopaedic Surgery documented in this encounter [facility] 12-18-2022 Miscellaneous Notes SITUATION: brother present during today's visit. patient reports the following since the last homecare visit: medications/allergies--no changes, no fall. patient reports knee feels more stiff today carlos he really worked on walking and exercises over the weekend. BACKGROUND: Diagnoses (reason for Home Care): LTKR Weight Bearing/Precaution Changes: no changes ASSESSMENT: Focus of visit gait trainikng w/ 1 crutch w/ emphasis on weight shifting to LLE and for heel to toe. By end of visit patient was able to demonstrate good heel to toe pattern. progressed stabding exercises today for HEP. AAROM 0-94 post stretches scheduled OP PT to begin on 12/25/22 Plan of care, goals, and visit frequency reviewed and agreed upon with patient and/or caregiver. Current Discharge Plan: outpatient rehab Anticipate discharge by 12/20/22 RECOMMENDATION: Next visit to focus on PT to see for DC See intervention summary for intervention/education details. documented in this encounter [facility] 12-15-2022 Miscellaneous Notes Addended by: JOSEP GAMEZ on: 12/15/2022 11:07 AM Modules accepted: Orders Order placed. Josep Gamez APRN.CNP December 15, 2022 11:07 AM Discussed patient transferring to OP PT at completion of home care PT. Patient plans to discuss with you if there is a need for OP PT. I would like to get this scheduled for him to ensure there is no down time in PT and can cancel appointment if you feel this is not needed. Can you please enter orders for OP PT so I can get scheduled? Thanks documented in this encounter [facility] 12-15-2022 Miscellaneous Notes SITUATION: brother present during today's visit. patient reports the following since the last homecare visit: medications/allergies--no changes, no fall. patient reports his knee is very stiff. only did exercises 1time yesterday. BACKGROUND: Diagnoses (reason for Home Care): LTKR Weight Bearing/Precaution Changes: no changes ASSESSMENT: Focus of visit performed supine and standing ROM and sttength exercises for hEP. Encouraged patien tto cont w/ HEP 2-3 times a day and hourly walking. Attwmpted cane training today but patient not able to perform heel to toe pattern at this time. Instructed patient to cont w/ww to focus on good gait pattern. PROM 90 Plan of care, goals, and visit frequency reviewed and agreed upon with patient and/or caregiver. Current Discharge Plan: outpatient rehab Anticipate discharge by 12/21/22 RECOMMENDATION: Next visit to focus on add standing hip abd See intervention summary for intervention/education details. documented in this encounter [facility] 12-13-2022 Miscellaneous Notes SITUATION: brother and mother present during today's visit. patient reports the following since the last homecare visit: medications/allergies--no changes, no fall. patient reports dr called in refill of pain meds but has not picked up yet. Knee is very stiff. BACKGROUND: Diagnoses (reason for Home Care): LTKR Weight Bearing/Precaution Changes: no changes ASSESSMENT: Focus of visit much time spent on gait training w/ emphasis on heel to toe pattern, patient tends to walk w/ stiff knee flat foot pattern. progressed rom and strength exercises. AAROM86, PROM 90 Plan of care, goals, and visit frequency reviewed and agreed upon with patient and/or caregiver. Current Discharge Plan: outpatient rehab Anticipate discharge by 12/21/22 RECOMMENDATION: Next visit to focus on add hip/knee flexion in standing See intervention summary for intervention/education details. documented in this encounter [facility] 12-12-2022 Miscellaneous Notes Removed surgical bandage on 12/11/22. No concerns and picture uploaded to chart. Discussed patient transferring to OP PT at completion of home care PT. Patient plans to discuss with you if there is a need for OP PT. I would like to get this scheduled for him to ensure there is no down time in PT and can cancel appointment if you feel this is not needed. Can you please enter orders for OP PT so I can get scheduled? Thanks documented in this encounter [facility] 12-11-2022 Miscellaneous Notes SITUATION: sisiter present during today's visit. patient reports the following since the last homecare visit: medications/allergies--no changes, no fall. patient reports he still cannot lift leg on/off bed without using strap. Worried that something is wrong. BACKGROUND: Diagnoses (reason for Home Care): LTKR Weight Bearing/Precaution Changes: no changes ASSESSMENT: Focus of visit bandage removal. No concerns w/ healing. performed and progressed ROM and strength exercises for HEP gait training w/ focus on heel to toe pattern Discussed OP PT w/ patient. Patient stated he will talk with dr about it to see if it is needed AAROM 4-80 Plan of care, goals, and visit frequency reviewed and agreed upon with patient and/or caregiver. Current Discharge Plan: outpatient rehab Anticipate discharge by 12/21/22 RECOMMENDATION: Next visit to focus on add standing hamstring curls and heel raises See intervention summary for intervention/education details. documented in this encounter [facility] 12-07-2022 Miscellaneous Notes Doing ok at home, soreness in knee. Has PT coming out. Did have an episode of nausea last night middle of night. Had BM this morning and seems to be doing better. Will call back if it happens again. documented in this encounter [facility] 12-06-2022 Miscellaneous Notes SITUATION: Sister/caregiver present during today's visit. patient reports pain is tolerable, knee is feeling stiff. Patient lives with his mother and is her primary caregiver. Pt's sister is staying with them for approx 10 days to help with care in the home. Home is 1 level, no stairs. Small ramp exit. Patient has necessary DME in home. Patient rarely goes to his own home and does not wish to make returning to his own home part of the careplan. Prior to surgery, patient was IND with ADL and ambulation without device. Wearing knee braces for pain mgmt. BACKGROUND: Diagnoses (reason for Home Care): L TKR Past Medical History: HTN, peripheral neuropathy, OA Weight Bearing or Surgical Precautions: WBAT ASSESSMENT: Patient evaluated by [facility] Homecare physical therapy. Reviewed and explained homecare services. Plan of care, goals, and visit frequency developed, reviewed, and agreed upon with patient and/or caregiver. Patient received instruction in pain/edema mgmt, fall prevention/home safety, s/s of infection and when to call the MD, precautions and restrictions, and home exercises upon PT eval Patient Goal: decrease pain, increase strength and motion L knee AROM 8-78 degrees. L knee dressing clean, dry, intact. Dressing removal date: 12/11/22. Patient will benefit from continued physical therapy to address the following deficits: strength, gait, L knee joint ROM, transfers and bed mobility. Current Discharge Plan: outpatient rehab VS hep. Anticipate discharge by 12/23/22. Patient is not sure that he will want to attend outpatient PT. At this point, he would prefer to continue his own HEP after home PT discharge. RECOMMENDATION: Next visit to focus on progressive AROM, strengthening. Agreeable to PT; declining n/a See intervention summary for intervention/education details. documented in this encounter [facility] 12-05-2022 Note HNO ID: [id number] Author: Cheyenne Josue ([employer]) Service: Pharmacy Author Type: ? Type: Plan of Care Filed: 12/05/2022 2:43 PM Note Text: PHARMACY BEDSIDE DELIVERY SERVICE Patient Name: Thomas Pierson The marked outpatient medications were Filled at: [facility] and delivered to the patient's bedside to 291 Medication List START taking these medications ascorbic acid (vitamin C) 500 mg tablet Commonly known as: VITAMIN C Take 1 tablet by mouth twice daily with meals for 28 doses. X aspirin, enteric coated 81 mg EC tablet Commonly known as: ASPIRIN, ENTERIC COATED Take 1 tablet by mouth twice daily for 28 days. X docusate sodium 100 mg capsule Commonly known as: COLACE Take 1 capsule by mouth twice daily as needed for constipation. X doxycycline hyclate 100 mg capsule Commonly known as: VIBRAMYCIN Take 1 capsule by mouth twice daily for 14 days. X meloxicam 7.5 mg tablet Commonly known as: MOBIC Take 1 tablet by mouth once daily for 14 days. X oxyCODONE IR 5 mg immediate release tablet Commonly known as: ROXICODONE Take 1-2 tablets by mouth every 6 hours as needed for pain. X pantoprazole DR 20 mg tablet Commonly known as: PROTONIX Take 1 tablet by mouth every morning for 14 days. X polyethylene glycol 3350 17 gram/dose powder Commonly known as: MIRALAX, GLYCOLAX Take 17 g by mouth once daily as needed for constipation for up to 10 days. Dissolve dose in 4 - 8 ounces of liquid and take as directed. X CHANGE how you take these medications acetaminophen 500 mg tablet Commonly known as: TYLENOL Take 2 tablets by mouth every 8 hours as needed for pain. What changed: when to take this reasons to take this X CONTINUE taking these medications gabapentin 100 mg capsule Commonly known as: NEURONTIN lisinopril 10 mg tablet Commonly known as: ZESTRIL, PRINIVIL simvastatin 20 mg tablet Commonly known as: ZOCOR You might also be taking other medications not listed above. If you have questions about any of your other medications, talk to the person who prescribed them or your Primary Care Provider. STOP taking these medications celecoxib 200 mg capsule Commonly known as: CeleBREX HYDROcodone-Acetaminophen 10-325 mg/15 mL(15 mL) Soln mupirocin 2 % ointment Commonly known as: BACTROBAN Cheyenne Josue ([employer]) PAGER: [phone] December 05, 2022 2:42 PM [facility] 12-05-2022 Miscellaneous Notes Welcome Home Call: a. Date and Time: 12:36 PM 12/05/2022 b. Contact name/relationship: Patient c. Have you been active with any Home Care company in the last 60 days(such as help with bathing, filling medications, checking your blood pressure) ? No. d. Was patient given Flu shot this Season (After Jul,): Yes: Location: [place] OFFICE , Date received: July 2022 e. [facility] will be providing your care, are you agreeable to starting these services? YES (yes or no) f. Do you have any upcoming appointments in the next few days, or restrictions to your schedule? NO g. Caregiver: Patient is able to manage care independently h. Confirmed Visited Location and preferred #: YES Please keep our your medications both over the counter and prescribed out for the home care to review, your hospital discharge instructions and write down any questions you might have. In order to maintain a safe environment for our caregivers, [facility] requires any animals or weapons present in the home be located in a secured location. Our clinicians will call you the night before or the morning of the appointment. Their # may come up restricted but they'll leave a VM for you. In case you have any questions or concerns in the meantime, our # is [phone], option 5 Thank you for your time and have a great day. ALEJANDRO Tejada documented in this encounter [facility] 12-05-2022 Note HNO ID: [id number] Author: Dani Caal MD Service: General Internal Medicine Author Type: Physician Type: Progress Notes Filed: 12/05/2022 9:07 AM Note Text: INPATIENT CONSULT PROGRESS NOTES Patient Name: Thomas Pierson DATE of SERVICE: 12/05/22 TIME of SERVICE: 7:50 CONSULTING SERVICE: Medicine,Postop day #1 Plan of care discussed with: Provider, RN, Patient. INTERVAL HPI: Uneventful night, pain is well controlled. Patient seen and examined: Vitals/Meds/Labs/U/O reviewed Alert AND Oriented NO nausea, vomiting NO light headedness, NO shortness of breathe O/E : Dry oral mucosa CVS - RRR Lungs - Clear to auscultation Abdomen - soft, Nontender, normal bowel sounds LLE - Ankle No edema RLE - Ankle No edema MEDICATIONS: Current Facility-Administered Medications Medication Dose Route Frequency scopolamine - VERIFY patch OTHER q 8 H scopolamine - REMOVE PATCH OTHER ONCE gabapentin 100 mg cap(s) (NEURONTIN) 100 mg ORAL BID simvastatin 20 mg tab(s) (ZOCOR) 20 mg ORAL AT BEDTIME lisinopril 10 mg tab(s) (ZESTRIL, PRINIVIL) 10 mg ORAL DAILY aspirin, enteric coated 81 mg tab(s) 81 mg ORAL BID lactated ringers iv infusion 75 mL/hr INTRAVENOUS CONTINUOUS oxyCODONE IR 5-10 mg tab(s) (ROXICODONE) 5-10 mg ORAL q 4 H PRN HYDROmorphone 0.2 mg injection (DILAUDID) 0.2 mg INTRAVENOUS q 3 H PRN acetaminophen 1,000 mg tab(s) (TYLENOL) 1,000 mg ORAL q 8 H keTORolac 15 mg injection (TORADOL) 15 mg INTRAVENOUS q 6 H ondansetron orally disintegrating 4 mg tab(s) (ZOFRAN ODT) 4 mg ORAL q 6 H PRN Or ondansetron (PF) 4 mg injection (ZOFRAN) 4 mg INTRAVENOUS q 6 H PRN polyethylene glycol 3350 17 g packet (MIRALAX, GLYCOLAX) 17 g ORAL DAILY PRN [START ON 12/06/2022] bisacodyl EC 10 mg tab(s) (DULCOLAX) 10 mg ORAL DAILY aluminum-magnesium hydroxide-simethicone 200-200-20 mg/5 mL 30 mL (MAALOX,MYLANTA,MAG-AL PLUS) 30 mL ORAL q 2 H PRN ascorbic acid (vitamin C) 500 mg tab(s) (VITAMIN C) 500 mg ORAL BID w MEALS docusate sodium 100 mg cap(s) (COLACE) 100 mg ORAL BID senna 17.2 mg tab(s) (SENOKOT) 17.2 mg ORAL AT BEDTIME NaCl 0.9% iv flush bag 20 mL INTRAVENOUS PRN benzocaine-menthol 1 Lozenge (CEPACOL) 1 Lozenge MUCOUS MEMBRANE (TOPICAL MOUTH AND THROAT) q 2 H PRN PHYSICAL EXAM: Patient Vitals for the past 24 hrs: BP Temp Temp src Pulse Resp SpO2 Height Weight 12/05/22 0810 117/76 36.5 ?C (97.7 ?F) Oral 76 18 97 % -- -- 12/05/22 0258 110/70 36.4 ?C (97.5 ?F) Oral 65 18 97 % -- -- 12/05/22 0015 107/74 36.4 ?C (97.6 ?F) Axillary 74 18 97 % -- -- 12/04/22 1947 135/76 36.6 ?C (97.9 ?F) Oral 82 18 99 % -- -- 12/04/22 1700 111/75 36.6 ?C (97.9 ?F) Oral 82 16 95 % -- -- 12/04/22 1631 115/81 36.5 ?C (97.7 ?F) Oral 73 14 96 % -- -- 12/04/22 1545 104/70 37.2 ?C (98.9 ?F) Oral 74 16 98 % -- -- 12/04/22 1515 103/63 36.3 ?C (97.3 ?F) Temporal 73 7 97 % -- -- 12/04/22 1500 104/62 -- -- 78 10 98 % -- -- 12/04/22 1445 108/58 -- -- 85 30 100 % -- -- 12/04/22 1436 108/59 36.3 ?C (97.3 ?F) Temporal 80 12 100 % -- -- 12/04/22 1220 127/88 -- -- -- 16 98 % -- -- 12/04/22 1215 129/92 -- -- -- 16 98 % -- -- 12/04/22 1134 112/82 36.8 ?C (98.2 ?F) Temporal Art -- 18 99 % 180.3 cm (5' 11 ) 69.9 kg (154 lb) Body mass index is 21.48 kg/m?. DATA: CBC: Recent Labs 12/05/22 0657 WBC 11.00 RBC 4.52 HB 13.7 HCT 41.3 PLT 202 MCV 91.4 MCH 30.3 MPV 11.1 Coags: No results for input(s): PT, INR, APTT in the last 24 hours. CMP: Recent Labs 12/05/22 0657 NA 138 K 4.5 CHLOR 102 CO2 29 BUN 14 CREAT 0.82 GLUC 119* CA 9.4 ANION 7* ASSESSMENT AND PLAN: A. OA S/P - Total Knee Unilateral: left,DVT prophylaxis with aspirin Continue PT/OT Hypertension, stable continue Prinivil Hyperlipidemia continue statins Neuropathy, idiopathic, continue gabapentin Possible discharge today Home-going meds reviewed Discussed with PT SIGNATURE: Dani Caal MD [facility] 12-05-2022 Note HNO ID: [id number] Author: Mick Hoffmann PA-C Service: Orthopaedic Surgery Author Type: Physician Geology Associate Type: Progress Notes Filed: 12/05/2022 10:37 AM Note Text: POSTOP NOTE ORTHOPAEDIC SURGERY SERVICE DATE: 12/05/2022 SERVICE TIME: 7:55 AM IMPRESSION/PLAN: S/P Procedure(s) (LRB): ROBOTIC ASSISTED TOTAL KNEE ARTHROPLASTY (Left) on 12/04/2022 Physical Therapy evaluation WBAT LLE DVT prophylaxis: Intermittent pneumatic compression device (IPCD) and ASA 81 mg bid x 28 days Pain control Case Management for discharge planning Plan of care discussed with: Provider, RN, Patient. POST OPERATIVE COMPLICATIONS: Complicated by uneventful/none SUBJECTIVE: Patient states that they are comfortable Well Controlled knee pain. Denies incisional pain. OBJECTIVE: VITAL SIGNS: BP 110/70 Pulse 65 Temp 36.4 ?C (97.5 ?F) (Oral) Resp 18 Ht 180.3 cm (5' 11 ) Wt 69.9 kg (154 lb) SpO2 97% BMI 21.48 kg/m? INTAKE AND OUTPUT: Intake/Output Summary (Last 24 hours) at 12/05/2022 0757 Last data filed at 12/05/2022 0517 Gross per 24 hour Intake 2398 ml Output 1550 ml Net 848 ml LABS: Hemoglobin Date Value Ref Range Status 12/05/2022 13.7 13.0 - 17.0 g/dL Final 11/22/2022 14.3 13.0 - 17.0 g/dL Final Hematocrit Date Value Ref Range Status 12/05/2022 41.3 39.0 - 51.0 % Final 11/22/2022 41.7 39.0 - 51.0 % Final Platelet Count Date Value Ref Range Status 12/05/2022 202 150 - 400 k/uL Final 11/22/2022 211 150 - 400 k/uL Final WBC Date Value Ref Range Status 12/05/2022 11.00 3.70 - 11.00 k/uL Final 11/22/2022 4.19 3.70 - 11.00 k/uL Final Creatinine Date Value Ref Range Status 12/05/2022 0.82 0.73 - 1.22 mg/dL Final 11/22/2022 0.83 0.73 - 1.22 mg/dL Final Potassium Date Value Ref Range Status 12/05/2022 4.5 3.7 - 5.1 mmol/L Final 11/22/2022 4.3 3.7 - 5.1 mmol/L Final VTE Prophylaxis: Active VTE Risk Category Order: 12/04/22 1600 VTE RISK CATEGORY: SURGICAL HIGH RISK ([place], [place]) Active VTE Medication Orders: Anticoagulant AND Antiplatelet Medications (From admission, onward) Start Dose Route Frequency Last Action Ordered Stop 12/05/22 0900 aspirin, enteric coated 81 mg tab(s) (Surgical Risk Categories) 81 mg ORAL 2 TIMES DAILY Ordered 12/04/22 1546 -- Active VTE Prophylaxis Orders: 12/04/22 1600 PNEUMATIC COMPRESSION STOCKINGS ([place], [place]) 12/04/22 1600 ACTIVITY - MOBILIZE PATIENT ([place], [place]) PHYSICAL EXAMINATION: Left Lower Extremity: Dorsalis pedis pulses palpable. Posterior tibial pulses palpable. Dorsi flexion 5/5. Plantar flexion 5/5. Extensor hallucis extension: 5/5. Sensory intact to light touch L4-S1. Subjective decreased sensation over L5 distribution - resolved on reexamination Dressing clean, dry, and intact. Surgical site no drainage and Silverlon intact. Thigh is not swollen, calf is not tender, no signs of DVT or infection Problem Review and Assessment: Skin and Abdominal Wall: Patient monitored, no new events overnight Cardiovascular and Vascular: Patient monitored, no new events overnight Respiratory: Patient monitored, no new events overnight Endocrine and Metabolic: Patient monitored, no new events overnight Gastrointestinal: Patient monitored, no new events overnight Genitourinary and Nephrology: Patient monitored, no new events overnight Behavioral, Cerebrovascular and Nervous: Patient monitored, no new events overnight Infectious: Patient monitored, no new events overnight DATA: Diagnostic tests reviewed for today's visit: Most recent labs and imaging results. SIGNATURE: Mick Hoffmann PA-C PATIENT NAME: Thomas Pierson DATE: December 05, 2022 TIME: 7:55 AM The patient has undergone major orthopedic surgery and participating in therapy. Pain cannot be managed within an average of 30 MED per day. Patient requiring average of higher than 30 MED per day in order to control pain and allow patient to actively and safely participate in therapy and this is the lowest dose consistent with patient's medical condition. Non-narcotic medication options have been discussed. In addition, the patient has been advised of the benefits and risks of the opioid (including the potential for addiction). Patient demonstrated understanding of risks versus benefits. [facility] 12-04-2022 Note HNO ID: [id number] Author: Liseth Franks APRN.CHILDREN'S LITERATURE PROFESSOR Service: Anesthesiology Author Type: Nurse Worldwide Chief Creative Officer Type: Anesthesia Procedure Notes Filed: 12/04/2022 1:16 PM Note Text: ANESTHESIOLOGY PROCEDURE NOTE Spinal Block General Information Procedure Start Time/Medication Administration: 12/04/2022 12:42 PM Patient location during procedure: OR Timeout Performed Pre-procedure: timeout performed Consent Obtained: Yes Patient identity confirmed: arm band and patient Reason for Block: primary surgical anesthetic Staffing CHILDREN'S LITERATURE PROFESSOR: Liseth Franks APRN.CHILDREN'S LITERATURE PROFESSOR Preparation Sterility Preparation: hand hygiene performed prior to procedure, sterile gloves, drapes, and procedure tray, surgical cap used, mask used, sterile drape used during line insertion, skin prep agent completely dried prior to procedure Site Prep: Betadine Procedure Details Patient Position: sitting Ultrasound Guided: Yes Monitoring: Pulse Ox Approach: Midline Location: L3-4 Injection Technique: single-shot Needle Needle Type: pencil-tip Needle Gauge: 25 G Assessment Events: tolerated well Comments Easy atraumatic first pass, 2 ml hyperbaric marcaine from kit SIGNATURE: Liseth Franks APRN.CHILDREN'S LITERATURE PROFESSOR PATIENT NAME: Thomas Pierson DATE: December 04, 2022 TIME: 1:15 PM CSN: [id number] [facility] 12-04-2022 Note HNO ID: [id number] Author: Paradise Perez MD Service: ? Author Type: Anesthesiologist Type: Anesthesia Procedure Notes Filed: 12/04/2022 12:28 PM Note Text: ANESTHESIOLOGY PROCEDURE NOTE Peripheral Nerve Block General Information Procedure Start Time/Medication Administration: 12/04/2022 12:21 PM Procedure End time: 12/04/2022 12:23 PM Patient location during procedure: induction room Timeout Performed Pre-procedure: timeout performed Consent Obtained: Yes Patient identity confirmed: arm band and patient Reason for block: post-op pain management/at surgeon's request Staffing Anesthesiologist: Paradise Perez MD Performed by: anesthesiologist Preparation Sterility Preparation: hand hygiene performed prior to procedure, sterile gloves, drapes, and procedure tray, surgical cap used, mask used, sterile drape used during line insertion, skin prep agent completely dried prior to procedure Site Prep: Chloraprep Pre-Procedure Neuro Exam Location: LLE Sensory: intact Motor: intact Procedure Details Patient Position: supine Monitoring: Pulse OX, EKG and NIBP Block Type Lower Extremity: distal femoral (adductor canal) Laterality: left Injection Technique: single-shot Ultrasound Guided: Yes Image in Chart: yes Local Infiltration: Yes Needle Needle Type: echogenic Needle Gauge: 22 G Needle Length: 100 mm Needle Localization: ultrasoundNo Test Dose Response: negative test dose Assessment Injection assessment: negative aspiration, no paresthesia on injection, incremental injection and local visualized surrounding nerve on ultrasound Paresthesia: none Post-Procedure Neuro Exam Expected Regional Anesthesia: Yes Medications Administered dexamethasone sodium phosphate injection (DECADRON) - peripheral nerve block 10 mg - 12/04/2022 12:21:00 PM ropivacaine (PF) 5 mg/mL (0.5 %) injection (NAROPIN) - peripheral nerve block 20 mL - 12/04/2022 12:21:00 PM SIGNATURE: Paradise Perez MD PATIENT NAME: Thomas Pierson DATE: December 04, 2022 TIME: 12:26 PM CSN: [id number] [facility] 11-30-2022 Miscellaneous Notes Update: Patient was seen by Bar Captain Dr Canas on 11/24/2022. His notes are scanned in [facility] on 11/29/2022. Per office note of Dr Canas, he did not clear patient for his knee surgery on 12/04/22 until he has an Echo, Coronary Calcium Score and CTA. I called Dr Canas's office today if these tests have been completed or if they will be completed prior to surgery. Per the nurse Alayna, patient had the Echo and she stated it was wnl, stress test from Oct, 2022 reported as negative and CTA and coronary calcium score test scheduled tomorrow 12/01/22 at 2 pm. Per nurse based on the time of the tests and if patient's results are ok, it will be a late clearance. Per our surgery schedule, patient's tentative surgery time is 2:45pm. Gabriela Martin RN documented in this encounter [facility] 11-29-2022 Miscellaneous Notes Radiology Service Progress Note PATIENT NAME: Thomas Pierson DATE OF SERVICE: November 29, 2022 TIME: 12:25 PM PATIENT IDENTITY VERIFICATION COMPLETED USING TWO (2) IDENTIFIERS: Name and Date of confirmed by patient verbally and Name and Date of confirmed by identification band. FALL SCREENING: Has the patient had 2 falls in the last year or 1 fall with injury or currently using an Ambulatory Assistive Device (Walker, Cane, Wheelchair, Crutches, etc.)? No PATIENT GENDER DATA: Male PATIENT RELEVANT IMPLANT DATA REVIEWED: Yes RADIOLOGY DEPARTMENT: CT; Exam(s) Completed: Lower extremity PERIPHERAL IV DATA: Not applicable SIGNED BY: RT Katie(R) November 29, 2022 12:25 PM documented in this encounter [facility] 11-27-2022 Miscellaneous Notes Received office visit from [facility]. Copy made for Junior Smallwood CNP and original sent to washroom operator to scan. Nora Thomas LPN Fax request sent to [employer] [facility] requesting office visit scheduled today when note is completed for patients upcoming surgery 12/04/22. Nora Thomas LPN Received stress test and EKG from [facility] medical records. Copy made for Junior Smallwood CNP and original sent to washroom operator to scan. Nora Thomas LPN Requested stress test and EKG from [facility] medical records via fax for upcoming surgery on 12/04/22. Patient also has an appointment with [facility] on Sunday11/24/22. Will request records from that visit after he is seen. Nora Thomas LPN documented in this encounter [facility] 11-23-2022 Miscellaneous Notes Called and scheduled patients rescan yash CT. New CT placed. Please assist in scheduling. Josep Gamez APRN.CNP November 23, 2022 8:16 AM Abhi, Please place a new order for his YASH CT scan. Per Edwin it didn't pass and they are unable to use it. Once you place the order can you send it to the schedulers to have them give him a call and reschedule. Thanks. Aniya Carmen Med Sedc documented in this encounter [facility] 11-22-2022 Instructions Junior Smallwood APRN.ALAN - 11/22/2022 10:34 AM EST PATIENT PREOPERATIVE INSTRUCTIONS Shannan Guthrie MD has scheduled you for your procedure at this surgery center: [facility]: [phone] -- [address] [address]. Please read below carefully for your personalized instructions. Dietary Restrictions: - No solid food after midnight. - You may have 12 ounces of clear liquids (water, clear juices such as apple juice or gatorade, carbonated beverages, clear tea, black coffee, jello) until 2 hours before scheduled arrival at facility. No red/purple coloring and no creamer/sugar Medications: Unless instructed differently below, stay on all of your medications until your surgery. Approved medications to take the morning of surgery with a sip of water: gabapentin (NEURONTIN), Simvastatin Do not take lisinopril (ZESTRIL, PRINIVIL) the morning and/or evening prior surgery If you take any medications for erectile dysfunction-Cialis (Tadalafil), Levitra, Staxyn (Vardenafil) Viagra (Sildenenafil please do not take these for 48 hours before surgery. If you start any new medications after today's visit, please contact the surgeon's office. Blood Thinning Medications: - Stop NSAIDS (Ibuprofen, Advil, Aleve, Motrin, Celebrex, Mobic, etc.) 7 days before surgery, as directed by your surgeon. - Stop Aspirin 7 days before surgery, as directed by your surgeon. - Stop Vitamin E, ALL multi-vitamins, herbals and dietary supplements 7 days before surgery. - You may take Tylenol (Acetaminophen) or any of your pain medications that do not contain aspirin or NSAIDS as needed. Important Reminders: - Candy, mints, and tobacco products are NOT permitted the morning of surgery. - Hearing aids, dentures and glasses may be worn the morning of surgery. - NO jewelry, body piercings, makeup, hairpins or contacts are to be worn the day of surgery. If you develop symptoms such as a fever, cold, or flu, or have other changes to your health within TWO DAYS of scheduled surgery or the morning of surgery, please contact the surgery center above. Personal Belongings: -Please have photo ID and insurance cards. -If you do not have a copy of advance directives on file with us, please bring a copy with you on the day of surgery. - Leave ALL valuables and money at home or with family members. For Outpatient Procedures: - YOU MUST HAVE A RESPONSIBLE LABOR TRAINER TAKE YOU HOME. A TOWER WATCHMAN OR PULMONARY NURSE PRACTITIONER CANNOT BE MADE A RESPONSIBLE LABOR TRAINER. - We recommend that a responsible person stays with you overnight to take care of you. - You cannot stay in a hotel alone after outpatient surgery. You will not be permitted to have your surgery, if you do not have someone to take care of you. Arrival Time for Surgery: - The Surgery Center or hospital where you are having surgery will call the afternoon before surgery (or Sunday for Sunday surgery) with a scheduled arrival time. - If you have not heard by 4 pm, please contact the surgery center above. Please be aware that emergency situations arise, which may delay or change your surgical time. If this happens, we will notify you as soon as possible and regret any inconvenience. If you already have an Advance Directive, please fax a copy to [phone] or email to for it to be added to your chart. If you do not have an Advance Directive, you can find the appropriate form and more information at [email or web address]. We recommend that you complete the Advance Directive form found on the website and bring it with you the day of your surgery. It can be witnessed and scanned into your chart that day. Junior Smallwood APRN.ALAN documented in this encounter [facility] 11-22-2022 History and physical note HISTORY AND PHYSICAL EXAMINATION SERVICE DATE: 11/22/2022 SERVICE TIME: 11:11 AM PRIMARY CARE PHYSICIAN: Malachi Dumont MD REASON FOR VISIT: Thomas Pierson is a 62 year old male who is scheduled for Procedure(s): ROBOTIC ASSISTED TOTAL KNEE ARTHROPLASTY (Left) at the request of Dr. Shannan Guthrie for consultation. My final recommendation will be communicated back to the requesting physician by way of shared medical record or letter. Subjective The patient has the following: ACTIVE PROBLEM LIST Essential (Primary) Hypertension Mixed Hyperlipidemia Former Smoker Peripheral Neuropathy Chronic Back Pain COVID-19 Immunization Status COVID-19 VACCINE (Series Information) Completed 08/19/2022 Imm Admin: COVID-19 booster vaccine, age 12+ yr, bivalent (PFIZER-BIONTECH) 04/16/2022 Imm Admin: COVID-19 vaccine, age 12+ yr (PFIZER-BIONTECH - SINGH TOP) 10/03/2021 Imm Admin: COVID-19 vaccine, age 12+ yr (PFIZER-BIONTECH - PURPLE TOP) Only the first 3 history entries have been loaded, but more history exists. CHIEF COMPLAINT: Pre-op exam HPI: Thomas Pierson is a 62 year old seen for PAC due to scheduled above surgery because of OA left knee. 10/03/2022, Dr. Guthrie This is a preoperative appointment for Thomas. He was previously seen my partner Dr. Harvey Vargas and indicated for a left knee total arthroplasty. I saw him on September 12 and discussed with him ruling out infection first, as he had a sort of bizarre presentation from swelling and inflammatory standpoint after arthroscopy by previous surgeon. His inflammatory markers came back negative. His MRI was negative for any obvious infection or osteomyelitis. He has severe posttraumatic osteoarthritis of the knee. This is limiting him substantially. He is here again as a preoperative appointment at this point now that infection has been ruled out. I reviewed risks and benefits at long length with him again today, expected outcomes, normal recovery times, and potential complications of a total knee replacement. REVIEW OF SYSTEMS: General: No weight loss, malaise or fevers. Neurological: Positive for: peripheral neuropathy (on rx). Negative for: cerebral palsy, dementia, headaches, impaired sensorium, multiple sclerosis, Parkinson's disease, seizures, TIA and strokes. Respiratory: +COVID, early September, mild symptoms, resolved +former smoker 1.5ppd/25 years. No history of current cough or dyspnea, or pneumonia in the past 6 weeks. No history of respiratory/pulmonary symptoms or problems. Cardiovascular: Positive for: hyperlipidemia (on rx) and hypertension (on rx) Negative for: anticoagulation therapy, arrhythmia, atrial fibrillation, CAD, chest pain, CHF, congenital heart defect, DVT/PE, recent ME, murmur/valvular heart disease, open heart surgery and valve surgery. GI: +h/o divericulosis. No history of GI symptoms or problems. No history of esophageal varices, recent ascites, or ETOH greater than 2 drinks per day. : No history of dysuria, frequency or incontinence, stones or chronic kidney disease. No difficulty urinating, nocturia > 1 time per night or hematuria. Endocrine: No history of diabetes. Has not taken steroids within the past 30 days. No history of endocrinological symptoms or problems. Hematology: Positive for: bruises/bleeds easily. Negative for: anemia, transfusion of at least 4 units within 72 hours prior to surgery and chronic anti-coagulation/platelet meds. Oncology: No history of CA metastasis, chemo within 30 days, or radiotherapy within 90 days. No history of oncological symptoms or problems. Psych: No history of psychiatric symptoms or problems. Musculoskeletal: See HPI. Positive for: back pain (on rx). Skin: Negative for lesions, rash and itching. PAST MEDICAL HISTORY Diagnosis Date Elevated cholesterol Essential hypertension PAST SURGICAL HISTORY Procedure Laterality Date ARTHROTOMY W/MENISCUS REPAIR KNEE Left 2020 REVISE MEDIAN N/CARPAL TUNNEL SURG Right 2012 FAMILY HISTORY Problem Relation Age of Onset Heart Mother quadruple bipass Lung Cancer Father Lung Cancer Sister Hypertension Sister Heart Attack Brother Hypertension Brother Heart Maternal Uncle Social History Tobacco Use Smoking status: Former Types: Cigarettes Quit date: 07/16/2002 Years since quittin.3 Smokeless tobacco: Never Tobacco comments: Quit smoking 20 years ago - 2001 Vaping Use Vaping Use: Never used Substance Use Topics Alcohol use: Yes Comment: ocassional beer Drug use: Never Prior to Admission medications as of 11/22/22 1045 Medication Sig Last Dose Taking lisinopril (ZESTRIL, PRINIVIL) 10 mg tablet Take by mouth. Taking Yes gabapentin (NEURONTIN) 100 mg capsule Take 100 mg by mouth twice daily. Taking Yes celecoxib (CELEBREX) 200 mg capsule Take 200 mg by mouth twice daily. Taking Yes simvastatin (ZOCOR) 20 mg tablet Take 20 mg by mouth daily at bedtime. Taking Yes HYDROcodone-Acetaminophen 10-325 mg/15 mL(15 mL) soln Take 15 mL by mouth every 8 hours as needed for pain. Taking Yes acetaminophen (TYLENOL) 500 mg tablet Take 1,000 mg by mouth every 6 hours as needed. Taking Yes mupirocin (BACTROBAN) 2 % ointment Apply 0.5 inch with cotton swab (Q-tip) to each nostril in the morning and evening for 5 days prior to and including day of surgery. No medication comments found. ALLERGIES Allergen Reactions Penicillin Rash From childhood Objective PHYSICAL EXAM: General: alert and oriented (x3) and healthy appearance. Pertinent negatives noted - not distressed. Skin: normal color, no rash or lesions. HEENT: EOM intact and pupils equal round. Pertinent negatives noted - no carotid bruit. Cardiovascular: regular rate and rhythm, normal S1 and S2, no rub, murmurs, or gallop. Respiratory: normal breath sounds, no wheezes or crackles. No chest wall deformity or tenderness. Abdomen: soft. Pertinent negatives noted - not tender. Extremities: no deformity, no edema or tenderness, no joint swelling or clubbing. Neurological: normal cognition and motor skills. Gait normal. No weakness or sensory deficit. PAIN ASSESSMENT: Pain Pain Level: 4 Pain Location: Knee-Left Description: Dull;Aching Duration Amount of Time: 2 Duration Units: Years Frequency: Continuous Intervention/Comfort measure: Medication VITALS: BP 110/80 Pulse 99 Temp (Src) 97.9 (Temporal) Resp 16 Ht 5' 11 (1.80m) Wt 154 lb (69.9kg) SpO2 99% BMI 21.49 kg/(m^2). Diagnostic tests reviewed for today's visit: Lab Value Units Date High Low HB No results within date range. HCT No results within date range. WBC No results within date range. PLT No results within date range. NA No results within date range. K No results within date range. GLUC No results within date range. BUN No results within date range. CREAT No results within date range. PTSEC No results within date range. INR No results within date range. APTT No results within date range. ALT No results within date range. AST No results within date range. TBILI No results within date range. TSH No results within date range. Lab Value Units Date High Low HCGQT No results within date range. UHCG No results within date range. HCG, BODY* No results within date range. Lab Value Units Date High Low ABORHD No results within date range. ABSCREEN No results within date range. No results found for: HBA1C No results found for this or any previous visit (from the past 8760 hour(s)). No results found for this or any previous visit (from the past 16797 hour(s)). Assessment Former smoker Assessment: 1.5ppd/25 years, denies asthma or COPD Peripheral neuropathy Assessment: on rx Chronic back pain Assessment: on rx Essential (primary) hypertension Assessment: controlled on rx Last 14 BP Last 14 Encounter BP Readings: Date: BP: 11/22/2022 110/80 Mixed hyperlipidemia Assessment: c/w statin Marks Activity Status Index: METS: Climb a flight of stairs or walk up a hill (5.50 METs) DASI Score: 5.5 Patient denies any chest pain or undue shortness of breath with the above physical activity. Clinical Frailty Scale: 3. Well, with treated comorbid disease STOP-Bang Score: Has or is being treated for high blood pressure Patient over 50 years old Male patient Denies snoring loudly Denies feeling tired, fatigued, or sleepy during the daytime Has not been observed to stop breathing or choking/gasping during sleep BMI less than or equal to 35 kg/m^2 Does not have a large neck STOP-Bang Score: 3 [id number] Score: Age: <65 Sex: male CHF history: No Hypertension history: Yes Stroke/TIA/thromboembolism history: No Vascular disease history: No Diabetes history: No [id number] Score: 1 ARISCAT Score: Age: 51-80 Preoperative SpO2: >=96% Respiratory infection in the last month: No Preoperative anemia: No Surgical incision: peripheral Duration of surgery: 2-3 hrs Emergency procedure: No ARISCAT Score: 19 ASA Class: 3 ANESTHESIA FINDINGS: Intubation History: No history of difficult intubation Significant Anesthesia Considerations: none Airway History: No history of difficult airway I - PHYSICAL EVALUATION AIRWAY Patient intubated: No. Tracheostomy tube not present Mallampati: II. TM distance: >3 FB. Neck ROM: full ROM without neurological symptoms. Mouth opening: adequate. Short neck: no. Thick neck: no Whittaker present: no DENTAL Dental findings: teeth intact. II - ANESTHESIA PLAN ASA Score: 3 Anesthetic Plan: other Anesthetic plan additional comments: *PACC/TCI - anesthesia choice. Beta Thien Monitoring Plan Post Procedure Analgesic Plan Informed Consent Anesthetic risks, benefits, alternatives, personnel and consent discussed: yes. Patient / Responsible Constitution Party agrees to proceed: yes Patient / Surrogate agrees to blood products: Yes Prepared for Surgery: optimally prepared for surgery, pending [see comment]. kya PATEL Pt has scheduled cardiac clearance appt scheduled 11/24/[address] Canas at [facility]-letter faxed CONSULTS: The following consults have been initiated at this time: cardiology. Planned Anesthetic: other anesthesia choice The Following Tests/Procedures Have Been Initiated: Orders Placed This Encounter >CBC + AUTO DIFF Standing Status: Future Number of Occurrences: 1 Standing Expiration Date: 01/22/2023 >CMP Standing Status: Future Number of Occurrences: 1 Standing Expiration Date: 01/22/2023 Type and Screen, 30 day Standing Status: Future Number of Occurrences: 1 Standing Expiration Date: 01/22/2023 Order Specific Question: Hospital of Planned Surgery or Procedure: Answer: Wade Confirm Blood Type Standing Status: Future Number of Occurrences: 1 Standing Expiration Date: 01/22/2023 Order Specific Question: Did Blood Bank direct you to place this order: Answer: No - Presurgical Workflow lisinopril (ZESTRIL, PRINIVIL) 10 mg tablet Sig: Take by mouth. mupirocin (BACTROBAN) 2 % ointment Sig: Apply 0.5 inch with cotton swab (Q-tip) to each nostril in the morning and evening for 5 days prior to and including day of surgery. Dispense: 22 g Refill: 0 Instructions Given to Patient: Instructions located in the after visit summary. Patient given verbal and written preop instructions and voices comprehension and compliance. SIGNATURE: Junior Smallwood APRN.CNP PATIENT NAME: Thomas Pierson DATE: November 22, 2022 TIME: 10:33 AM PAGER/CONTACT #: documented in this encounter [facility] 11-21-2022 Miscellaneous Notes I called and spoke with thomas. He needs his cap replaced and they are doing this next Sunday. Should not cause any bleeding. I asked for dental clearance after this. If no signs of infection or further treatment needs done will proceed as planned. Josep Gamez APRN.CNP November 21, 2022 2:27 PM Patient has surgery coming up on 12-04-2022 for a robotic left total knee replacement. He is asking if he needs dental clearance? He can be reached at [phone]. Aniya Carmen [facility] Electronically signed by Aniya Carmen [facility] at 11/21/2022 1:37 PM EST documented in this encounter [facility] 11-09-2022 Miscellaneous Notes TOTAL JOINT COMPLETE CARE PROGRAM PRE-OPERATIVE TEACHING Service Date: 11/09/2022 Service Time: 2:43 PM Date of : 1960 Gender: male Date of Surgery: 12/04/22 Procedure: Left Total Knee Replacement Complete Care Program was discussed with the patient: Personal Computer Network Analyst Identification: Patient identified a career coordinator to help when discharged to home: brother, staying at moms house and brother to help for few weeks Home Environment: Home Layout: Ranch, Entry Steps: 0, Bedroom Location: 1st floor, Bathroom Location: 1st floor, and tub shower. Pt owns walker, cane, crutches, shower chair, raised toilet seat. Discussed with patient importance of attending joint education class and provided date and times of class: YES paper copy Patient received Joint Education Binder: Yes Patient plans discharge home with [facility]. SIGNATURE: ALEJANDRO Lucas PATIENT NAME: Thomas Pierson DATE: November 09, 2022 TIME: 8:31 AM documented in this encounter [facility] 10-06-2022 Note HNO ID: [id number] Author: Shannan Guthrie MD Service: ? Author Type: Physician Type: Progress Notes Filed: 10/06/2022 6:35 AM Note Text: This is a preoperative appointment for Thomas. He was previously seen my partner Dr. Harvey Vargas and indicated for a left knee total arthroplasty. I saw him on September 12 and discussed with him ruling out infection first, as he had a sort of bizarre presentation from swelling and inflammatory standpoint after arthroscopy by previous surgeon. His inflammatory markers came back negative. His MRI was negative for any obvious infection or osteomyelitis. He has severe posttraumatic osteoarthritis of the knee. This is limiting him substantially. He is here again as a preoperative appointment at this point now that infection has been ruled out. I reviewed risks and benefits at long length with him again today, expected outcomes, normal recovery times, and potential complications of a total knee replacement. He understands these well and was able to voice them back to me. I answered all questions at length today. I have advised him that there is absolutely no guarantee that his lateral thigh pain or lateral alas pain down to his foot change whatsoever with a knee replacement. I have again reviewed with him that a knee replacement would only be to improve the pain and discomfort at the knee joint itself which she understands. All questions were answered today. Informed consent was signed. We will plan to do this robotically assisted. A CT scan was ordered for this reason. Shannan Guthrie MD Orthopaedic Surgery [facility] 10-06-2022 History of Present illness Narrative This is a preoperative appointment for Thomas. He was previously seen my partner Dr. Harvey Vargas and indicated for a left knee total arthroplasty. I saw him on September 12 and discussed with him ruling out infection first, as he had a sort of bizarre presentation from swelling and inflammatory standpoint after arthroscopy by previous surgeon. His inflammatory markers came back negative. His MRI was negative for any obvious infection or osteomyelitis. He has severe posttraumatic osteoarthritis of the knee. This is limiting him substantially. He is here again as a preoperative appointment at this point now that infection has been ruled out. I reviewed risks and benefits at long length with him again today, expected outcomes, normal recovery times, and potential complications of a total knee replacement. He understands these well and was able to voice them back to me. I answered all questions at length today. I have advised him that there is absolutely no guarantee that his lateral thigh pain or lateral alas pain down to his foot change whatsoever with a knee replacement. I have again reviewed with him that a knee replacement would only be to improve the pain and discomfort at the knee joint itself which she understands. All questions were answered today. Informed consent was signed. We will plan to do this robotically assisted. A CT scan was ordered for this reason. Shannan Guthrie MD Orthopaedic Surgery documented in this encounter [facility] 10-04-2022 Miscellaneous Notes Patient has been scheduled for CT scan Please call patient and assist with scheduling a pre-op CT scan for his Left knee. Order has been placed. Aniya Carmen Jason Sedc I called and spoke to patient. He will be scheduled for 12-04-2022. I answered all of his questions to the best of my ability. He will call back with any additional questions. Aniya Bianchilia Med Sedc Patient called in wanting to schedule surgery. He has been approved for financial clearance until 01/02/2023. Would you be able to call him and set up the surgery? Thank you! documented in this encounter [facility] 09-26-2022 Note HNO ID: [id number] Author: RT Abhilash(Marya) Service: ? Author Type: Technologist Type: Progress Notes Filed: 09/26/2022 10:49 AM Note Text: Radiology Service Progress Note PATIENT NAME: Thomas Pierson DATE OF SERVICE: September 26, 2022 TIME: 10:49 AM PATIENT IDENTITY VERIFICATION COMPLETED USING TWO (2) IDENTIFIERS: Name and Date of confirmed by patient verbally. FALL SCREENING: Has the patient had 2 falls in the last year or 1 fall with injury or currently using an Ambulatory Assistive Device (Walker, Cane, Wheelchair, Crutches, etc.)? No PATIENT GENDER DATA: Male PATIENT RELEVANT IMPLANT DATA REVIEWED: Yes RADIOLOGY DEPARTMENT: MR; Exam(s) Completed: Lower MSK: Knee, left PERIPHERAL IV DATA: Not applicable SIGNED BY: RT Abhilash(R) September 26, 2022 10:49 AM [facility] 09-26-2022 History of Present illness Narrative Radiology Service Progress Note PATIENT NAME: Thomas Pierson DATE OF SERVICE: September 26, 2022 TIME: 10:49 AM PATIENT IDENTITY VERIFICATION COMPLETED USING TWO (2) IDENTIFIERS: Name and Date of confirmed by patient verbally. FALL SCREENING: Has the patient had 2 falls in the last year or 1 fall with injury or currently using an Ambulatory Assistive Device (Walker, Cane, Wheelchair, Crutches, etc.)? No PATIENT GENDER DATA: Male PATIENT RELEVANT IMPLANT DATA REVIEWED: Yes RADIOLOGY DEPARTMENT: MR; Exam(s) Completed: Lower MSK: Knee, left PERIPHERAL IV DATA: Not applicable SIGNED BY: RT Abhilash(R) September 26, 2022 10:49 AM documented in this encounter [facility] 09-18-2022 Miscellaneous Notes I explained to this patient he needs new financial clearance for the follow up appointment since his ends 10/05/2022. He is scheduled for the PFA call 10/04. [facility] does not allow us to schedule without this clearance. Pt calling [phone] 1) asking for results of BW Sed Rate, Westergren 0 - 15 mm/hr 2 CRP <0.9 mg/dL <0.3 PSR 2) asking to make an appt to go over his MRI when he gets it done on Oct 03 documented in this encounter [facility] 09-12-2022 Note HNO ID: [id number] Author: Shannan Guthrie MD Service: ? Author Type: Physician Type: Progress Notes Filed: 09/12/2022 1:57 PM Note Text: CONSULT ORTHOPAEDIC: KNEE PRIMARY CARE PHYSICIAN: Malachi Dumont MD REFERRING PROVIDER: Harvey Vargas [address] [facility] [address] ASSESSMENT AND PLAN Impression: Thomas was referred to be my partner Dr. Harvey Vargas. In short, he had a left knee arthroscopy a year and a half ago at [facility] for meniscal tear by Dr. Lombardi. He reports that when he woke up from surgery he had significant pain. He said that his knee continues to swell after surgery. His difficulty with the knee has only worsened over time and never improved. He now notices the knee being swollen painful and being very warm to the touch. He wears a brace daily. He is active and works on [employer] for living. He has pain medially and laterally. He also has unrelated lateral thigh pain that goes all the way down to his foot. I told him this is not coming from the knee. He has not had fevers but has had unintentional weight loss He has some blanching erythema over the front of his knee and a lot of swelling in the knee is boggy feeling. I would like to rule out infection first. He may have a postoperative infection. ESR and CRP ordered today, as well as an MRI to look for potential osteomyelitis. If elevated we will aspirate the knee. If infectious work-up negative will proceed with left robotic knee replacement. If infectious work-up negative, the purplish discoloration erythema and tenderness to light touch may be a part of a CRPS picture, which will likely be somewhat exacerbated at least initially by knee replacement as well, but he does have [id number] articulation that is quite painful. I spent a total of approximately 25 minutes on the date of the service which included preparing to see the patient, [id number] patient care, completing clinical documentation, obtaining and/or reviewing separately obtained history, performing a medically appropriate examination, counseling and educating the patient/family/caregiver, ordering medications, tests, or procedures, independently interpreting results (not separately reported), communicating results to the patient/family/caregiver, and care coordination (not separately reported). The patient has been ordered: ESR CRP MRI Thomas Pierson meets the following criteria for MRI: X-Ray is equivocal CONSULTS: Patient does not require consults for optimization at this time. There is no problem list on file for this patient. SUBJECTIVE CHIEF COMPLAINT: Knee Pain HPI: Thomas Pierson is a 62 year old patient here for evaluation and management of left knee pain. 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 The problem began limiting activities 1-3 years ago. Currently the pain in the joint is rated at 7 out of 10 with minimal activity. The pain is constant and is located global. The pain is described as radiating, sharp, soreness, and stiffness. Relieving factors include ice, over the counter medication, and repositioning. There is no specific incident that brought about this pain. Thomas Pierson also complains of weakness, referred pain, stiffness, popping, and giving way. FUNCTIONAL STATUS: Climb a flight of stairs or walk up a hill (5.50 METs) Total Joint Arthroplasty: Risk Calculator Thomas Pierson has a 2.97% chance of NOT returning home at discharge for a Primary total Knee replacement. Thomas's estimated Length of Stay is 1 day. Thomas's 30 day chance of readmission is . Estimated LOS 1 day Discharge Disposition Probability D/C to Home 97.03 % D/C to SNF 2.97 % These calculations are based on the following factors: - 62 years of age - sex is male - BMI of 22.67 kg/m2 - 0 hospitalizations in the last 12 months - no history of heart disease - no history of diabetes - no history of COPD - no history of anemia - preoperative ambulation: impaired community distances - 2 step(s) to enter home - bed location is on the first floor - bath location is on the first floor - caregiver is consistent - home is not more than 150 miles away - PROMIS-10 Mental Health T score not available - Marital status: single PREVIOUS TREATMENTS: Medical Treatments: RX NSAIDS for 3 Months or Greater (Celebrex), Steroid Injections Left Knee, Viscosupplementation Left Knee Physical Therapy: Shoe Wear, Braces, Orthotics, etc. and Activities Modified Previous Surgery: Knee Arthroscopy R (more content not included)... [facility] 09-12-2022 Miscellaneous Notes Addended by: TG ROBERTSON on: 09/12/2022 02:21 PM Modules accepted: Orders documented in this encounter [facility] 09-12-2022 History of Present illness Narrative CONSULT ORTHOPAEDIC: KNEE PRIMARY CARE PHYSICIAN: Malachi Dumont MD REFERRING PROVIDER: Harvey Vargas [address] [facility] [id number] ASSESSMENT & PLAN Impression: Thomas was referred to be my partner Dr. Harvey Vargas. In short, he had a left knee arthroscopy a year and a half ago at [facility] for meniscal tear by Dr. Lombardi. He reports that when he woke up from surgery he had significant pain. He said that his knee continues to swell after surgery. His difficulty with the knee has only worsened over time and never improved. He now notices the knee being swollen painful and being very warm to the touch. He wears a brace daily. He is active and works on [employer] for living. He has pain medially and laterally. He also has unrelated lateral thigh pain that goes all the way down to his foot. I told him this is not coming from the knee. He has not had fevers but has had unintentional weight loss He has some blanching erythema over the front of his knee and a lot of swelling in the knee is boggy feeling. I would like to rule out infection first. He may have a postoperative infection. ESR and CRP ordered today, as well as an MRI to look for potential osteomyelitis. If elevated we will aspirate the knee. If infectious work-up negative will proceed with left robotic knee replacement. If infectious work-up negative, the purplish discoloration erythema and tenderness to light touch may be a part of a CRPS picture, which will likely be somewhat exacerbated at least initially by knee replacement as well, but he does have [id number] articulation that is quite painful. I spent a total of approximately 25 minutes on the date of the service which included preparing to see the patient, [id number] patient care, completing clinical documentation, obtaining and/or reviewing separately obtained history, performing a medically appropriate examination, counseling and educating the patient/family/caregiver, ordering medications, tests, or procedures, independently interpreting results (not separately reported), communicating results to the patient/family/caregiver, and care coordination (not separately reported). The patient has been ordered: ESR CRP MRI Thomas Pierson meets the following criteria for MRI: X-Ray is equivocal CONSULTS: Patient does not require consults for optimization at this time. There is no problem list on file for this patient. SUBJECTIVE CHIEF COMPLAINT: Knee Pain HPI: Thomas Pierson is a 62 year old patient here for evaluation and management of left knee pain. 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 The problem began limiting activities 1-3 years ago. Currently the pain in the joint is rated at 7 out of 10 with minimal activity. The pain is constant and is located global. The pain is described as radiating, sharp, soreness, and stiffness. Relieving factors include ice, over the counter medication, and repositioning. There is no specific incident that brought about this pain. Thomas Pierson also complains of weakness, referred pain, stiffness, popping, and giving way. FUNCTIONAL STATUS: Climb a flight of stairs or walk up a hill (5.50 METs) Total Joint Arthroplasty: Risk Calculator Thomas Pierson has a 2.97% chance of NOT returning home at discharge for a Primary total Knee replacement. Thomas's estimated Length of Stay is 1 day. Thomas's 30 day chance of readmission is . Estimated LOS 1 day Discharge Disposition Probability D/C to Home 97.03 % D/C to SNF 2.97 % These calculations are based on the following factors: - 62 years of age - sex is male - BMI of 22.67 kg/m2 - 0 hospitalizations in the last 12 months - no history of heart disease - no history of diabetes - no history of COPD - no history of anemia - preoperative ambulation: impaired community distances - 2 step(s) to enter home - bed location is on the first floor - bath location is on the first floor - caregiver is consistent - home is not more than 150 miles away - PROMIS-10 Mental Health T score not available - Marital status: single PREVIOUS TREATMENTS: Medical Treatments: RX NSAIDS for 3 Months or Greater (Celebrex), Steroid Injections Left Knee, Viscosupplementation Left Knee Physical Therapy: Shoe Wear, Braces, Orthotics, etc. and Activities Modified Previous Surgery: Knee Arthroscopy REVIEW OF SYSTEMS: PAIN ASSESSMENT: See HPI. MUSCULOSKELETAL: See HPI. Risk Factors for Total Joint Arthroplasty (TJA) Obesity normal High: BMI > 40 Moderate: BMI 30-40 Normal: BMI < 30 Diabetes normal High: A1C > 8 Moderate: A1C 7-8 Normal: A1C < 7 Smoking normal High: Current smoker Normal: Non smoker Anemia normal High: Hgb < 13 (men) N/A: Hgb >= 13 (men) Nutritional Status normal High: Alb<3.4, or prealb<15, or serum transferrin<200, or total lymphocyte count<1500 Normal: normal labs COPD normal High: dx of COPD Normal: no dx of COPD MRSA normal High: dx of MRSA or positive lab test Normal: no MRSA CKD normal High: eGFR<60 Moderate: eGFR 60-89 Normal: eGFR>90 Hx of DVT / PE normal High: dx of DVT / PE Normal: no dx of DVT / PE Narcotics Use Moderate Risk High:NarxCare >=300 Moderate: 100-299 Normal: 0-99 FRANCIA normal High: dx of FRANCIA N/A: no dx of FRANCIA Coagulation normal High:PT Sec>13, or PT INR>1.3, or APTT>32.4, or Plt ct<150k Moderate: on anticoag but none of the above Normal: none NarxCare score NARX Narcotics: 261 (09/12/2022 12:13 PM) Other Risk Factors None PAST MEDICAL HISTORY Diagnosis Date Elevated cholesterol PAST SURGICAL HISTORY Procedure Laterality Date ARTHROTOMY W/MENISCUS REPAIR KNEE Left 2020 REVISE MEDIAN N/CARPAL TUNNEL SURG Right 2012 No family history on file. Social History Tobacco Use Smoking status: Former Types: Cigarettes Quit date: 07/16/2002 Years since quittin.1 Smokeless tobacco: Never Tobacco comments: Quit smoking 20 years ago - 2001 Vaping Use Vaping Use: Never used Substance Use Topics Alcohol use: Yes Comment: ocassional beer Drug use: Never ALLERGIES: Penicillin MEDICATIONS: gabapentin (NEURONTIN) 100 mg capsule Take 100 mg by mouth twice daily. celecoxib (CELEBREX) 200 mg capsule Take 200 mg by mouth twice daily. simvastatin (ZOCOR) 20 mg tablet Take 20 mg by mouth daily at bedtime. HYDROcodone-Acetaminophen 10-325 mg/15 mL(15 mL) soln Take 15 mL by mouth every 8 hours as needed for pain. acetaminophen (TYLENOL) 500 mg tablet Take 1,000 mg by mouth every 6 hours as needed. PHYSICAL EXAM: Ht 177.8 cm (5' 10 ) Wt 71.7 kg (158 lb) BMI 22.67 kg/m All other systems deferred. GENERAL: Appears healthy, well-nourished, no deformities. HABITUS: Normal GAIT: Antalgic to the left KNEE EXAM: Left: Blanching erythema across the front of the knee. Tender palpation to light touch. Purplish discoloration global anterior knee Alignment: Varus deformity, Correctable Range of motion is 5 degrees in extension and 110 degrees of flexion. Extension La degrees Pain with ROM: Yes Effusion: Moderate Tender to the palpation of Medial femoral condyle, Lateral femoral condyle, Medial joint line, and Lateral joint line Pain with patellar compression: No Stability: Anterior/Posterior stable and Varus/Valgus stable Hip Exam: flexion to 100+ degrees, full extension, internal/external rotation adequate, and no pain with log roll Neurovascular Status: Sensation Intact, Moves foot and ankle up & down, and 2+ dorsalis pedis DATA: Diagnostic tests reviewed for today's visit: Right knee X-Ray: Severe tri-compartmental degeneration The following conditions were addressed during the office visit today: none SIGNATURE: Shannan Guthrie MD PATIENT NAME: Thomas Pierson DATE: September 12, 2022 TIME: 1:16 PM documented in this encounter [facility] 07-27-[address] Vargas, yes, Dr. Guthrie in [place]. I called and spoke with patient. He has already scheduled an appointment with Dr. Guthrie on 09/12/2022. Patient called in with concerns that Dr. Vargas referred him to another surgeon and he has not heard anything about getting an appointment scheduled. Patient could not remember the name, but thought it was in [place]? I assume you were sending him to Dr. Guthrie? documented in this encounter [facility] 07-20-2022 Note HNO ID: [id number] Author: RT Diana(R) Service: ? Author Type: Sulfur Burner Type: Progress Notes Filed: 07/20/2022 12:16 PM Note Text: Radiology Service Progress Note PATIENT NAME: Thomas Pierson DATE OF SERVICE: July 20, 2022 TIME: 11:50 AM PATIENT IDENTITY VERIFICATION COMPLETED USING TWO (2) IDENTIFIERS: Name and Date of confirmed by patient verbally. FALL SCREENING: Has the patient had 2 falls in the last year or 1 fall with injury or currently using an Ambulatory Assistive Device (Walker, Cane, Wheelchair, Crutches, etc.)? No PATIENT GENDER DATA: Male PATIENT RELEVANT IMPLANT DATA REVIEWED: Yes RADIOLOGY DEPARTMENT: General X-ray: Exam(s) Completed: Lower Extremity X-Ray(s): Knee, AP / Lat / Tunne / Merchant Left PERIPHERAL IV DATA: Not applicable SIGNED BY: RT Diana(R) July 20, 2022 11:50 AM [facility] 07-20-2022 Note HNO ID: [id number] Author: Harvey Vargas MD Service: ? Author Type: Physician Type: Progress Notes Filed: 08/07/2022 10:59 PM Note Text: Patient presents with: Left Knee - New, Knee Pain: Left knee pain- 2nd opinion. Patient to bring own films Harvey Vargas MD Department of Orthopaedics Orthopaedics [address] [place] [id number] Dept: [phone] Dept July 20, 2022 CHIEF COMPLAINT: New and Knee Pain of the Left Knee (Left knee pain- 2nd opinion. Patient to bring own films) HPI Patient is here for another opinion regarding his left knee issues. Patient had meniscus tear surgery 06/01/[address] Lombardi and then got another opinion from Dr Blevins back in December 2021 after having a lot of pain issues after surgery. Patient received both cortisone and gel injections, which he states did not help. Patient was told he needed a TKA and is here for another opinion. He has been taking tylenol extra strength 500mg every 6 hours and also wears a brace. AMB ROOMING INTAKE FLOWSHEET DATA Risk Screening Do you have concerns about personal safety or safety in the home?: No Pain Pain Level: 8 Pain Location: Knee-Left Description: Aching, Sharp, Burning, Stabbing/Not Incision Duration Amount of Time: 1 Duration Units: Years Frequency: Continuous Intervention/Comfort measure: Medication, Reposition, Relaxation, Cold ASSESSMENT: M17.12 Primary osteoarthritis of left knee (primary encounter diagnosis) PLAN: He is seeking a third opinion as he is having a hard time understanding how his knee went from doing OK, to surgery and then within 18 months, recommended to have a knee replacement. The reality is that his left knee has worsened over the course of time since his knee scope. He had evidence of OA at the time of his scope and on plain films today, shows moderate Medial OA with bone changes. With the significance of his functional pain and ADLs, and quality of life, I recommend a TKA as well. I'll have him get in with one of our Adult Recon partners to review final discussions about surgery. FOLLOW UP INSTRUCTIONS: As above Mr. Thomas Pierson was advised as to contrast therapies and/or to take analgesics/anti-inflammatories as needed and all contraindications were reviewed. OBJECTIVE: Mr. Thomas Pierson is a pleasant 62 year old in no apparent distress. Gen:There were no vitals taken for this visit. nl development, non obese, no deformities ENT: Normocephalic, normal hearing, moist mucosa CV: Pulses:DP/PT= 2+ and symmetric, capillary refill < 2 secs, no peripheral edema/varicosities Skin: no rash, bruising or lesions. Good turgor. Psych: cooperative and appropriate, alert and oriented x 3, good mood and affect. Musculoskeletal: Patient walks with antalgia, normal station. Hip motion without pain. Knee with moderate effusion. Patella tracks with mild lateral tilt. There is no patellar crepitance. Positive pain along the lateral facet. Range of motion 5-120. Positive medial without lateral joint line pain on palpation. Ligamentous exam stable on varus and valgus stress testing at 0 and 30 degrees. Matthew's examination is negative. Posterior drawer is negative. Extremity is warm and well perfused. Sensation is grossly intact to light touch, subjectively. IMAGING: IMPRESSION: Findings are suggestive of degenerative changes in the left knee. Charter Boat Captain: CIRO Transcribe Date/Time: Jul 20 2022 4:56P Dictated by : ROSA MARIA NESS MD This examination was interpreted and the report reviewed and electronically signed by: ROSA MARIA NESS MD on Jul 20 2022 4:59PM EST Results-Findings * * *Final Report* * * DATE OF EXAM: Jul 20 2022 12:15PM WRX [id number] - XR KNEE 4V AP/PA BOTH+LAT/YAKOV LT / PROCEDURE REASON: Primary osteoarthritis of left knee * * * * Physician Interpretation * * * * EXAM TITLE: XR KNEE 4V AP/PA BOTH+LAT/YAKOV LT EXAM DATE/TIME: 07/20/2022 12:15 PM COMPARISON: None. CLINICAL INDICATION/HISTORY: Knee pain. TECHNIQUE: AP/PA, lateral and sunrise views of the left knee are presented. FINDINGS: No acute fractures or subluxations are noted. Medial compartmental joint space narrowing is demonstrated, with what appears to be subchondral cystic formation versus osteochondral lesion. There is tricompartmental osteophyte formation. There is small joint effusion. The mineralization of the bones is normal. There is no significant soft tissue swelling. Supporting Subjective Information Below: Past Medical History: PAST MEDICAL HISTORY Diagnosis Date Elevated cholesterol Past Surgical History: PAST SURGICAL HISTORY Procedure Laterality Date ARTHROTOMY W/MENISCUS REPAIR KNEE Left 2020 REVISE MEDIAN N/CARPAL TUNNEL SURG Right 2012 Family History: History reviewed. No pertinent family history. Social History: Social History Tobacco Use Smoking status: (more content not included)... [facility] Diagnosis Post-traumatic osteoarthritis of left knee- Primary Secondary localized osteoarthrosis, lower leg Localized swelling, mass, or lump of left lower extremity [facility] Diagnosis Chronic pain of left knee- Primary Pain in joint, lower leg [facility] Diagnosis Post-traumatic osteoarthritis of left knee- Primary Secondary localized osteoarthrosis, lower leg Chronic pain of left knee Pain in joint, lower leg [facility] Diagnosis Pre-operative examination- Primary Preoperative examination, unspecified Essential (primary) hypertension Unspecified essential hypertension Mixed hyperlipidemia Peripheral polyneuropathy Unspecified hereditary and idiopathic peripheral neuropathy Chronic back pain, unspecified back location, unspecified back pain laterality Former smoker Personal history of tobacco use, presenting hazards to health Post-traumatic osteoarthritis of left knee Secondary localized osteoarthrosis, lower leg Chronic pain of left knee Pain in joint, lower leg [facility] Diagnosis Post-traumatic osteoarthritis of left knee- Primary Secondary localized osteoarthrosis, lower leg Preop examination Preoperative examination, unspecified Post-traumatic osteoarthritis of left knee Secondary localized osteoarthrosis, lower leg Chronic pain of left knee Pain in joint, lower leg [facility] Diagnosis Post-traumatic osteoarthritis of left knee Secondary localized osteoarthrosis, lower leg Preop examination Preoperative examination, unspecified Post-traumatic osteoarthritis of left knee Secondary localized osteoarthrosis, lower leg Chronic pain of left knee Pain in joint, lower leg [facility]* Diagnosis Left knee pain, unspecified chronicity- Primary [facility] Diagnosis Stiffness of left knee- Primary [facility] Diagnosis Status post left knee replacement- Primary Stiffness of left knee [facility] Diagnosis Stiffness of left knee- Primary [facility] Diagnosis Stiffness of left knee- Primary [facility] Diagnosis Stiffness of left knee- Primary [facility] Diagnosis Stiffness of left knee- Primary [facility]* Diagnosis Stiffness of left knee- Primary [facility] Diagnosis S/P total knee arthroplasty, left- Primary [facility] Diagnosis Stiffness of left knee- Primary [facility] Diagnosis Stiffness of left knee- Primary [facility]* Diagnosis Stiffness of left knee- Primary [facility] Diagnosis Stiffness of left knee- Primary [facility]* Diagnosis Stiffness of left knee- Primary [facility]* Diagnosis Stiffness of left knee- Primary [facility] Diagnosis S/P total knee arthroplasty, left- Primary [facility] Diagnosis Localized swelling, mass, or lump of left lower extremity [facility]* Visit Details Visit Type -PT SOC Discipline -Physical Therapy Problems Problem Description Start Date Status Goals Interve ntions Medication Education Disciplines: Skilled Services 12/06/2022 Active 1 goal linked to scheduled/document ed intervention 1 goal intervention scheduled/document ed in this visit Sepsis Disciplines: Skilled Services 12/06/2022 Active 1 goal linked to scheduled/document ed intervention 1 goal intervention scheduled/document ed in this visit Physician Specific Parameters Disciplines: Skilled Services 12/06/2022 Active 1 goal linked to scheduled/document ed intervention 1 goal intervention scheduled/document ed in this visit Risk for Falls Disciplines: Skilled Services 12/06/2022 Active 1 goal linked to scheduled/document ed intervention 1 goal intervention scheduled/document ed in this visit Pain Disciplines: Skilled Services 12/06/2022 Active 1 goal linked to scheduled/document ed intervention 1 goal intervention scheduled/document ed in this visit High Risk Medications Disciplines: Skilled Services 12/06/2022 Active 1 goal linked to scheduled/document ed intervention 1 goal intervention scheduled/document ed in this visit Discharge Disciplines: Skilled Services 12/06/2022 Active 1 goal linked to scheduled/document ed intervention 1 goal intervention scheduled/document ed in this visit Advance Directives Disciplines: Skilled Services 12/06/2022 Resolved on 12/06/2022 1 goal linked to scheduled/document ed intervention 1 goal intervention scheduled/document ed in this visit PT Impaired muscle performance and/or ROM Disciplines: PT 12/06/2022 Active 1 goal linked to scheduled/document ed intervention 1 goal intervention scheduled/document ed in this visit PT Impaired mobility Disciplines: PT 12/06/2022 Active 2 goals linked to scheduled/document ed interventions 2 goal interventions scheduled/document ed in this visit PT Impaired gait Disciplines: PT 12/06/2022 Active 1 goal linked to scheduled/document ed intervention 1 goal intervention scheduled/document ed in this visit PT Orthopedic Condition Disciplines: PT 12/06/2022 Active 1 goal linked to scheduled/document ed intervention 3 goal interventions scheduled/document ed in this visit PT Learning Assessment Disciplines: PT 12/06/2022 Active 1 goal linked to scheduled/document ed intervention 1 goal intervention scheduled/document ed in this visit Goals Goal Associated Problem Outcome Goal Met? Visit Notes Patient/caregiver will demonstrate ability to obtain, store, identify and administer ordered medications, keep accurate medication list in home, and adhere to medication schedule Description: Patient/caregiver will demonstrate ability to obtain, store, identify and administer ordered medications, keep accurate medication list in home, and adhere to medication schedule by 02/03/23. Medication Education No Patient/caregiver will be able to identify and report symptoms of sepsis Description: Patient/caregiver will be able to identify signs/symptoms of sepsis infection and will verbalize actions to take if suspected by 02/03/23. Sepsis No Patient to maintain parameters within physician-specified ranges throughout certification period Physician Specific Parameters No Manage Risk for falls Description: Patient/caregiver will verbalize knowledge of individualized fall prevention strategies by 02/03/23. Risk for Falls No Manage Pain Description: Patient/caregiver will verbalize knowledge and understanding of appropriate techniques to control pain, including pain medication and non-pharmacological techniques. Patient will verbalize or demonstrate an acceptable level of pain as evidenced by a pain score of 2/10 and improvement in ability to perform activities of daily living to be achieved by 02/03/23 Pain No Patient/caregiver will teach back high risk medication side effect and precaution education High Risk Medications No Manage discharge planning Description: Patient/caregiver will verbalize understanding of ongoing discharge plan provided related to disease management, arrangements for outpatient and/or community services, obtaining medications, supplies, and DME, as needed throughout certification period. Discharge No Patient/caregiver will make healthcare providers aware of and any changes to Advance Directives throughout certification period Advance Directives Completed Yes Improved Muscle Performance and/or ROM Description: LTG: Patient will demonstrate improved muscle performance to meet functional goals as evidenced by ability to tolerate 8 min or greater standing activity, to be achieved by 12/23/22. LTG: Patient and/or caregiver will verbalize/demonstrate independence with home exercise program, to improve functional mobility, to be achieved by 12/23/22. LTG: Patient will demonstrate improved left knee active range of motion to 3-95 degrees or greater, to meet functional goals, to be achieved by 12/23/22. PT Impaired muscle performance and/or ROM No Improved Transfers Description: LTG: Patient will demonstrate safe transfers to/from bed, chair, toilet and couch independently, to be achieved by 12/23/22 LTG: Patient will demonstrate safe transfers to/from shower and car with SBA, to be achieved by 12/23/22 PT Impaired mobility No Improved Bed Mobility Description: LTG: Patient will demonstrate improved bed mobility, ability to position self and supine <> sit independently to be achieved by 12/23/22 . PT Impaired mobility No Improved Gait Description: LTG: Patient will demonstrate improved gait ability as evidenced by ambulation 150 or greater feet with front wheeled walker progressing to cane as appropriate independently with AD, to return to safe household ambulation, in order to access rooms, leave home, to be achieved by 12/23/22 PT Impaired gait No Manage Orthopedic Condition Description: Improve patient and/or caregiver understanding of post surgical and/or non-surgical orthopedic intervention management as evidenced by patient and/or caregiver able to verbalize, demonstrate, and teach back instruction, to be achieved by 12/23/22. PT Orthopedic Condition No Demonstrate understanding of education Description: Short Term Goals: Patient will receive instruction in pain/edema mgmt, fall prevention/home safety, s/s of infection and when to call the MD, precautions and restrictions, and home exercises upon PT eval, to be acheived by 12/06/22. LTG: Patient and/or caregiver will understand educational instruction to be achieved by 12/23/22. PT Learning Assessment No Interventions Intervention Associated Problem/Goal Status Variance Visit Notes Medication Education Description: Evaluate/instruct patient/caregiver on obtaining, storing, identifying and administering ordered medications as well as keeping accurate medication list in the home and adhereing to medication schedule Problem:Medication Education Goal:Patient/caregive r will demonstrate ability to obtain, store, identify and administer ordered medications, keep accurate medication list in home, and adhere to medication schedule Completed Patient instructed on importance of keeping accurate medication list in home and adhering to medication schedule. Risk of Sepsis Description: Patient is at risk for sepsis. Monitor closely for s/s of sepsis. Problem:Sepsis Goal:Patient/caregive r will be able to identify and report symptoms of sepsis Completed SPO2 Description: Notify Dr. Guthrie if pulse ox is <92% at rest. Problem:Physician Specific Parameters Goal:Patient to maintain parameters within physician-specified ranges throughout certification period Completed Instruct on individual fall risk factors and strategies to prevent falls and injuries caused by falls. Problem:Risk for Falls Goal:Manage Risk for falls Completed PT: Patient instructed on Managing Impaired Functional Mobility: Use assistive device(s): front wheeled walker Managing Pain Orthostatic precautions Instruct on pain and instruct on strategies to control pain Problem:Pain Goal:Manage Pain Completed patient instructed on techniques to control pain including Pharmacological measures and Non-Pharmacological measures; rest, positioning/elevation, mobility/therapeutic exercise, use of DME/assistive devices and use of thermal modalities, apply ice to affected area for the following prescribed frequency: ice machine 20 min on/off. Opioids- educated on high risk medication Problem:High Risk Medications Goal:Patient/caregive r will teach back high risk medication side effect and precaution education Completed patient educated on taking medication(s) as prescribed by provider. Do not stop medication or alter doses without speaking with your provider. Discuss medication effectiveness or side effect concerns with your provider and home care team. Only take opioids as prescribed, do not share your medications, and take proper precautions in storing and properly disposing of opioids once no longer needed. Possible side effects of opioid medication including sedation, decreased rate of breathing, and constipation. Report over sedation to prescribing provider and practice deep breathing techniques every hour while awake. Prevent constipation by increasing water and fiber intake, increasing activity as tolerated, and use stool softener(s) as prescribed. Instruct on ongoing discharge plan Problem:Discharge Goal:Manage discharge planning Completed Ongoing Discharge plan: Discharge plan discussed with patient including frequency and duration for home PT and plan for transition to: outpatient therapy. Determine patient's Advance Directive Status Description: Patient does have advance directives. Patient's Advance Directives determined to be available in EMR Healthcare DPOA and Living Will. Problem:Advance Directives Goal:Patient/caregive r will make healthcare providers aware of and any changes to Advance Directives throughout certification period Completed Discussed Advance Directives with Patient and/or Caregiver. Referred patient to Home Care handbook for further information on Healthcare DPOA & Living Will. Physical Therapy Therapeutic Exercises Problem:PT Impaired muscle performance and/or ROM Goal:Improved Muscle Performance and/or ROM Completed Patient and caregiver instructed on strengthening and range of motion exercises including BLE ankle pumps, quad set, glut set x10; LLE SAQ, hip abd, heelslides x10 ea with verbal, tactile, visual and written cues for safety and technique. patient and caregiver instructed to perform home exercise program three times a day which included all above ex's as tolerated. Ankle pumps hourly, walking every 1-2 hours with walker and assistance. Handouts issued and reviewed. Physical Therapy Transfer Training Problem:PT Impaired mobility Goal:Improved Transfers Completed Transfer training and instruction to patient and caregiver on safe transfers to and from bed, chair, toilet and couch with contact guard assist and verbal, tactile and visual cues for hand, foot, walker placement. Avoiding pulling on walker. Scooting to edge of service with forward weight shift. Eccentric control to sit. Physical Therapy Bed Mobility Training Problem:PT Impaired mobility Goal:Improved Bed Mobility Completed Bed mobility training and instruction to patient and caregiver, including supine<>sit and repositioning self with minimal assist and verbal, tactile and visual cues for avoiding strain, using UE's to position self. Physical Therapy Gait Training Problem:PT Impaired gait Goal:Improved Gait Completed Gait training and instruction to patient on safe ambulation with front wheeled walker for 60 x2 feet with contact guard assist, with verbal and visual cues for corrections of gait deviations including upright posture, walker placement, sequencing with operative LE. Walker raised 1 level for appropriate fit. Instruct on orthopedic precautions and weight bearing restrictions Description: Orthopedic precautions including left total knee: no knee flexed over pillow at rest. Weight bearing restrictions include: WBAT of involved extremity. Problem:PT Orthopedic Condition Goal:Manage Orthopedic Condition Completed patient and caregiver instructed on orthopedic precautions and weight bearing restrictions. Instruct on management of edema Problem:PT Orthopedic Condition Goal:Manage Orthopedic Condition Completed Instruct patient and caregiver on management of edema including elevation of LLE above the level of the heart. Instruct on self-management of post surgical and/or non-surgical orthopedic intervention Problem:PT Orthopedic Condition Goal:Manage Orthopedic Condition Completed patient and caregiver instructed on managagement of orthopedic condition, signs and symptoms of infection, signs and symptoms of DVT/PE, instructed on when to call provider and instructed on when to call 911. Instruct and educate on knowledge deficits Problem:PT Learning Assessment Goal:Demonstrate understanding of education Completed patient and caregiver verbalize and/or demonstrate understanding of physical therapy education including orthopedic condition management, weight bearing precautions, surgical precautions, fall prevention strategies, home safety, integumentary and incision/wound care management, infection control precautions, functional activity and home exercise program. Education methods include: verbal cues, tactile cues, written instructions, visual cues and teach back. Further education/reinforcemen t required to improve knowledge and compliance with orthopedic condition management, weight bearing precautions, surgical precautions, fall prevention strategies, home safety, integumentary and incision/wound care management, infection control precautions, functional activity and home exercise program. 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 Discipline -Physical Therapy Problems Problem Description Start Date Status Goals Interve ntions Medication Education Disciplines: Skilled Services 12/06/2022 Active 1 goal linked to scheduled/document ed intervention 1 goal intervention scheduled/document ed in this visit Sepsis Disciplines: Skilled Services 12/06/2022 Active 1 goal linked to scheduled/document ed intervention 1 goal intervention scheduled/document ed in this visit Physician Specific Parameters Disciplines: Skilled Services 12/06/2022 Active 1 goal linked to scheduled/document ed intervention 1 goal intervention scheduled/document ed in this visit Risk for Falls Disciplines: Skilled Services 12/06/2022 Active 1 goal linked to scheduled/document ed intervention 1 goal intervention scheduled/document ed in this visit Pain Disciplines: Skilled Services 12/06/2022 Active 1 goal linked to scheduled/document ed intervention 1 goal intervention scheduled/document ed in this visit High Risk Medications Disciplines: Skilled Services 12/06/2022 Active 1 goal linked to scheduled/document ed intervention 1 goal intervention scheduled/document ed in this visit Discharge Disciplines: Skilled Services 12/06/2022 Active 1 goal linked to scheduled/document ed intervention 1 goal intervention scheduled/document ed in this visit PT Impaired muscle performance and/or ROM Disciplines: PT 12/06/2022 Active 1 goal linked to scheduled/document ed intervention 1 goal intervention scheduled/document ed in this visit PT Impaired mobility Disciplines: PT 12/06/2022 Active 1 goal linked to scheduled/document ed intervention 1 goal intervention scheduled/document ed in this visit PT Impaired gait Disciplines: PT 12/06/2022 Active 1 goal linked to scheduled/document ed intervention 1 goal intervention scheduled/document ed in this visit PT Orthopedic Condition Disciplines: PT 12/06/2022 Active 1 goal linked to scheduled/document ed intervention 4 goal interventions scheduled/document ed in this visit PT Learning Assessment Disciplines: PT 12/06/2022 Active 1 goal linked to scheduled/document ed intervention 1 goal intervention scheduled/document ed in this visit Goals Goal Associated Problem Outcome Goal Met? Visit Notes Patient/caregiver will demonstrate ability to obtain, store, identify and administer ordered medications, keep accurate medication list in home, and adhere to medication schedule Description: Patient/caregiver will demonstrate ability to obtain, store, identify and administer ordered medications, keep accurate medication list in home, and adhere to medication schedule by 02/03/23. Medication Education No Patient/caregiver will be able to identify and report symptoms of sepsis Description: Patient/caregiver will be able to identify signs/symptoms of sepsis infection and will verbalize actions to take if suspected by 02/03/23. Sepsis No Patient to maintain parameters within physician-specified ranges throughout certification period Physician Specific Parameters No Manage Risk for falls Description: Patient/caregiver will verbalize knowledge of individualized fall prevention strategies by 02/03/23. Risk for Falls No Manage Pain Description: Patient/caregiver will verbalize knowledge and understanding of appropriate techniques to control pain, including pain medication and non-pharmacological techniques. Patient will verbalize or demonstrate an acceptable level of pain as evidenced by a pain score of 2/10 and improvement in ability to perform activities of daily living to be achieved by 02/03/23 Pain No Patient/caregiver will teach back high risk medication side effect and precaution education High Risk Medications No Manage discharge planning Description: Patient/caregiver will verbalize understanding of ongoing discharge plan provided related to disease management, arrangements for outpatient and/or community services, obtaining medications, supplies, and DME, as needed throughout certification period. Discharge No Improved Muscle Performance and/or ROM Description: LTG: Patient will demonstrate improved muscle performance to meet functional goals as evidenced by ability to tolerate 8 min or greater standing activity, to be achieved by 12/23/22. LTG: Patient and/or caregiver will verbalize/demonstrate independence with home exercise program, to improve functional mobility, to be achieved by 12/23/22. LTG: Patient will demonstrate improved left knee active range of motion to 3-95 degrees or greater, to meet functional goals, to be achieved by 12/23/22. PT Impaired muscle performance and/or ROM No Improved Transfers Description: LTG: Patient will demonstrate safe transfers to/from bed, chair, toilet and couch independently, to be achieved by 12/23/22 LTG: Patient will demonstrate safe transfers to/from shower and car with SBA, to be achieved by 12/23/22 PT Impaired mobility No Improved Gait Description: LTG: Patient will demonstrate improved gait ability as evidenced by ambulation 150 or greater feet with front wheeled walker progressing to cane as appropriate independently with AD, to return to safe household ambulation, in order to access rooms, leave home, to be achieved by 12/23/22 PT Impaired gait No Manage Orthopedic Condition Description: Improve patient and/or caregiver understanding of post surgical and/or non-surgical orthopedic intervention management as evidenced by patient and/or caregiver able to verbalize, demonstrate, and teach back instruction, to be achieved by 12/23/22. PT Orthopedic Condition No Demonstrate understanding of education Description: Short Term Goals: Patient will receive instruction in pain/edema mgmt, fall prevention/home safety, s/s of infection and when to call the MD, precautions and restrictions, and home exercises upon PT eval, to be acheived by 12/06/22. LTG: Patient and/or caregiver will understand educational instruction to be achieved by 12/23/22. PT Learning Assessment No Interventions Intervention Associated Problem/Goal Status Variance Visit Notes Medication Education Description: Evaluate/instruct patient/caregiver on obtaining, storing, identifying and administering ordered medications as well as keeping accurate medication list in the home and adhereing to medication schedule Problem:Medication Education Goal:Patient/caregive r will demonstrate ability to obtain, store, identify and administer ordered medications, keep accurate medication list in home, and adhere to medication schedule Completed Patient and Caregiver instructed on importance of keeping accurate medication list in home, adhering to medication schedule and how to order refills. Risk of Sepsis Description: Patient is at risk for sepsis. Monitor closely for s/s of sepsis. Problem:Sepsis Goal:Patient/caregive r will be able to identify and report symptoms of sepsis Completed SPO2 Description: Notify Dr. Guthrie if pulse ox is <92% at rest. Problem:Physician Specific Parameters Goal:Patient to maintain parameters within physician-specified ranges throughout certification period Completed Instruct on individual fall risk factors and strategies to prevent falls and injuries caused by falls. Problem:Risk for Falls Goal:Manage Risk for falls Completed PT: Patient instructed on Managing Impaired Functional Mobility: Use assistive device(s): front wheeled walker Instruct on pain and instruct on strategies to control pain Problem:Pain Goal:Manage Pain Completed patient instructed on techniques to control pain including Pharmacological measures and Non-Pharmacological measures; rest and use of thermal modalities, apply ice to affected area for the following prescribed frequency: several times/day. Antibiotic- educated on high risk medication Problem:High Risk Medications Goal:Patient/caregive r will teach back high risk medication side effect and precaution education Completed patient educated on taking medication(s) as prescribed by provider. Do not stop medication or alter doses without speaking with your provider. Discuss medication effectiveness or side effect concerns with your provider and home care team. Take the full dispensed amount even if you start feeling better, as bacteria can become resistant to antibiotic treatment if you do not finish your prescription. Common side effects are upset stomach and diarrhea. Take your antibiotics with food unless otherwise indicated to help with indigestion. Taking an [id number] probiotic or eating yogurt with live and active cultures three times a day can help prevent antibiotic-associated diarrhea. Call your provider immediately if you develop rashes or hives as this could be a delayed allergic reaction. Seek emergency treatment if you develop severe allergic reaction symptoms such as mouth or tongue swelling. Instruct on ongoing discharge plan Problem:Discharge Goal:Manage discharge planning Completed Ongoing Discharge plan: Discharge plan discussed with patient including frequency and duration for home PT and plan for transition to: outpatient therapy. Physical Therapy Therapeutic Exercises Problem:PT Impaired muscle performance and/or ROM Goal:Improved Muscle Performance and/or ROM Completed patient instructed on strengthening and range of motion exercises including ankle pumps, quad and glut sets, hip abd and adduction, saq w/ manual assist, heel slides w/ strap, x's 10 each. supine ext hang x's 5min. step flexion stretch x's5 w/ 10sec hold, seated heel slides w/ strap x's 10 with verbal and tactile cues for correct form and pace. patient instructed to perform home exercise program three times a day which included above exercises. Physical Therapy Transfer Training Problem:PT Impaired mobility Goal:Improved Transfers Completed Transfer training and instruction to patient on safe transfers to and from bed and chair with supervision and verbal cues for using star Physical Therapy Gait Training Problem:PT Impaired gait Goal:Improved Gait Completed Gait training and instruction to patient on safe ambulation with front wheeled walker for 3x's 25 feet with supervision, with verbal and visual cues for corrections of gait deviations including heel to toe pattern. Instruct on orthopedic precautions and weight bearing restrictions Description: Orthopedic precautions including left total knee: no knee flexed over pillow at rest. Weight bearing restrictions include: WBAT of involved extremity. Problem:PT Orthopedic Condition Goal:Manage Orthopedic Condition Completed patient instructed on orthopedic precautions. Instruct on management of edema Problem:PT Orthopedic Condition Goal:Manage Orthopedic Condition Completed Instruct patient on management of edema including elevation of LLe above the level of the heart and ice. Physical therapy to perform surgical incision/wound management Description: Removal of post-op dressing on 12/11/22. If no drainage is present, leave open to air; if drainage is present, cover with clean dressing and contact provider. Problem:PT Orthopedic Condition Goal:Manage Orthopedic Condition Completed Intervention completed this date. With patient consent, picture obtained and uploaded to chart. no concerns Instruct on self-management of post surgical and/or non-surgical orthopedic intervention Problem:PT Orthopedic Condition Goal:Manage Orthopedic Condition Completed patient instructed on incision care: no lotions/creams or rubbing, signs and symptoms of infection, signs and symptoms of DVT/PE, instructed on when to call provider and instructed on when to call 911. Instruct and educate on knowledge deficits Problem:PT Learning Assessment Goal:Demonstrate understanding of education Completed patient verbalize and/or demonstrate understanding of physical therapy education including pain management and home exercise program. Education methods include: verbal cues. Further education required to improve knowledge and compliance with home exercise program. 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 Discipline -Physical Therapy Problems Problem Description Start Date Status Goals Interve ntions Medication Education Disciplines: Skilled Services 12/06/2022 Active 1 goal linked to scheduled/document ed intervention 1 goal intervention scheduled/document ed in this visit Sepsis Disciplines: Skilled Services 12/06/2022 Active 1 goal linked to scheduled/document ed intervention 1 goal intervention scheduled/document ed in this visit Physician Specific Parameters Disciplines: Skilled Services 12/06/2022 Active 1 goal linked to scheduled/document ed intervention 1 goal intervention scheduled/document ed in this visit Risk for Falls Disciplines: Skilled Services 12/06/2022 Active 1 goal linked to scheduled/document ed intervention 1 goal intervention scheduled/document ed in this visit Pain Disciplines: Skilled Services 12/06/2022 Active 1 goal linked to scheduled/document ed intervention 1 goal intervention scheduled/document ed in this visit Discharge Disciplines: Skilled Services 12/06/2022 Active 1 goal linked to scheduled/document ed intervention 1 goal intervention scheduled/document ed in this visit PT Impaired muscle performance and/or ROM Disciplines: PT 12/06/2022 Active 1 goal linked to scheduled/document ed intervention 1 goal intervention scheduled/document ed in this visit PT Impaired gait Disciplines: PT 12/06/2022 Active 1 goal linked to scheduled/document ed intervention 1 goal intervention scheduled/document ed in this visit PT Orthopedic Condition Disciplines: PT 12/06/2022 Active 1 goal linked to scheduled/document ed intervention 2 goal interventions scheduled/document ed in this visit PT Learning Assessment Disciplines: PT 12/06/2022 Active 1 goal linked to scheduled/document ed intervention 1 goal intervention scheduled/document ed in this visit Goals Goal Associated Problem Outcome Goal Met? Visit Notes Patient/caregiver will demonstrate ability to obtain, store, identify and administer ordered medications, keep accurate medication list in home, and adhere to medication schedule Description: Patient/caregiver will demonstrate ability to obtain, store, identify and administer ordered medications, keep accurate medication list in home, and adhere to medication schedule by 02/03/23. Medication Education No Patient/caregiver will be able to identify and report symptoms of sepsis Description: Patient/caregiver will be able to identify signs/symptoms of sepsis infection and will verbalize actions to take if suspected by 02/03/23. Sepsis No Patient to maintain parameters within physician-specified ranges throughout certification period Physician Specific Parameters No Manage Risk for falls Description: Patient/caregiver will verbalize knowledge of individualized fall prevention strategies by 02/03/23. Risk for Falls No Manage Pain Description: Patient/caregiver will verbalize knowledge and understanding of appropriate techniques to control pain, including pain medication and non-pharmacological techniques. Patient will verbalize or demonstrate an acceptable level of pain as evidenced by a pain score of 2/10 and improvement in ability to perform activities of daily living to be achieved by 02/03/23 Pain No Manage discharge planning Description: Patient/caregiver will verbalize understanding of ongoing discharge plan provided related to disease management, arrangements for outpatient and/or community services, obtaining medications, supplies, and DME, as needed throughout certification period. Discharge No Improved Muscle Performance and/or ROM Description: LTG: Patient will demonstrate improved muscle performance to meet functional goals as evidenced by ability to tolerate 8 min or greater standing activity, to be achieved by 12/23/22. LTG: Patient and/or caregiver will verbalize/demonstrate independence with home exercise program, to improve functional mobility, to be achieved by 12/23/22. LTG: Patient will demonstrate improved left knee active range of motion to 3-95 degrees or greater, to meet functional goals, to be achieved by 12/23/22. PT Impaired muscle performance and/or ROM No Improved Gait Description: LTG: Patient will demonstrate improved gait ability as evidenced by ambulation 150 or greater feet with front wheeled walker progressing to cane as appropriate independently with AD, to return to safe household ambulation, in order to access rooms, leave home, to be achieved by 12/23/22 PT Impaired gait No Manage Orthopedic Condition Description: Improve patient and/or caregiver understanding of post surgical and/or non-surgical orthopedic intervention management as evidenced by patient and/or caregiver able to verbalize, demonstrate, and teach back instruction, to be achieved by 12/23/22. PT Orthopedic Condition No Demonstrate understanding of education Description: Short Term Goals: Patient will receive instruction in pain/edema mgmt, fall prevention/home safety, s/s of infection and when to call the MD, precautions and restrictions, and home exercises upon PT eval, to be acheived by 12/06/22. LTG: Patient and/or caregiver will understand educational instruction to be achieved by 12/23/22. PT Learning Assessment No Interventions Intervention Associated Problem/Goal Status Variance Visit Notes Medication Education Description: Evaluate/instruct patient/caregiver on obtaining, storing, identifying and administering ordered medications as well as keeping accurate medication list in the home and adhereing to medication schedule Problem:Medication Education Goal:Patient/caregive r will demonstrate ability to obtain, store, identify and administer ordered medications, keep accurate medication list in home, and adhere to medication schedule Completed Patient instructed on importance of keeping accurate medication list in home. Risk of Sepsis Description: Patient is at risk for sepsis. Monitor closely for s/s of sepsis. Problem:Sepsis Goal:Patient/caregive r will be able to identify and report symptoms of sepsis Completed SPO2 Description: Notify Dr. Guthrie if pulse ox is <92% at rest. Problem:Physician Specific Parameters Goal:Patient to maintain parameters within physician-specified ranges throughout certification period Completed Instruct on individual fall risk factors and strategies to prevent falls and injuries caused by falls. Problem:Risk for Falls Goal:Manage Risk for falls Completed PT: Patient instructed on Managing Impaired Functional Mobility: Use assistive device(s): front wheeled walker Instruct on pain and instruct on strategies to control pain Problem:Pain Goal:Manage Pain Completed patient instructed on techniques to control pain including Pharmacological measures and Non-Pharmacological measures; positioning/elevation and use of thermal modalities, apply ice to affected area for the following prescribed frequency: several times day. Instruct on ongoing discharge plan Problem:Discharge Goal:Manage discharge planning Completed Ongoing Discharge plan: Discharge plan discussed with patient including frequency and duration for home PT and plan for transition to: outpatient therapy. Physical Therapy Therapeutic Exercises Problem:PT Impaired muscle performance and/or ROM Goal:Improved Muscle Performance and/or ROM Completed patient instructed on strengthening and range of motion exercises including ankle pumps, quad and glut sets, hip abd and adduction, saq and heel slides w/ belt x's 15 each. standing heel raises and hamstring curls x's 10each. step flexion stretch xs5 w/ 10sec hold seated heel slides x's 10 with verbal, visual and written cues for correct form. patient instructed to perform home exercise program twice a day which included above exercises. Physical Therapy Gait Training Problem:PT Impaired gait Goal:Improved Gait Completed Gait training and instruction to patient on safe ambulation with front wheeled walker for 4x's 40 feet with supervision, with verbal and visual cues for corrections of gait deviations including heel to toe and high march w/ LLE to encourage knee flexion. Instruct on management of edema Problem:PT Orthopedic Condition Goal:Manage Orthopedic Condition Completed Instruct patient on management of edema including elevation of LLE above the level of the heart and ice. Instruct on self-management of post surgical and/or non-surgical orthopedic intervention Problem:PT Orthopedic Condition Goal:Manage Orthopedic Condition Completed patient instructed on signs and symptoms of infection, signs and symptoms of DVT/PE, instructed on when to call provider and instructed on when to call 911. Instruct and educate on knowledge deficits Problem:PT Learning Assessment Goal:Demonstrate understanding of education Completed patient verbalize and/or demonstrate understanding of physical therapy education including pain management and home exercise program. Education methods include: verbal cues. Further education required to improve knowledge and compliance with home exercise program. 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 Discipline -Physical Therapy Problems Problem Description Start Date Status Goals Interve ntions Medication Education Disciplines: Skilled Services 12/06/2022 Active 1 goal linked to scheduled/document ed intervention 1 goal intervention scheduled/document ed in this visit Sepsis Disciplines: Skilled Services 12/06/2022 Active 1 goal linked to scheduled/document ed intervention 1 goal intervention scheduled/document ed in this visit Physician Specific Parameters Disciplines: Skilled Services 12/06/2022 Active 1 goal linked to scheduled/document ed intervention 1 goal intervention scheduled/document ed in this visit Risk for Falls Disciplines: Skilled Services 12/06/2022 Active 1 goal linked to scheduled/document ed intervention 1 goal intervention scheduled/document ed in this visit Pain Disciplines: Skilled Services 12/06/2022 Active 1 goal linked to scheduled/document ed intervention 1 goal intervention scheduled/document ed in this visit High Risk Medications Disciplines: Skilled Services 12/06/2022 Active 1 goal linked to scheduled/document ed intervention 3 goal interventions scheduled/document ed in this visit Discharge Disciplines: Skilled Services 12/06/2022 Active 1 goal linked to scheduled/document ed intervention 1 goal intervention scheduled/document ed in this visit PT Impaired muscle performance and/or ROM Disciplines: PT 12/06/2022 Active 1 goal linked to scheduled/document ed intervention 1 goal intervention scheduled/document ed in this visit PT Impaired gait Disciplines: PT 12/06/2022 Active 1 goal linked to scheduled/document ed intervention 1 goal intervention scheduled/document ed in this visit PT Orthopedic Condition Disciplines: PT 12/06/2022 Active 1 goal linked to scheduled/document ed intervention 3 goal interventions scheduled/document ed in this visit PT Learning Assessment Disciplines: PT 12/06/2022 Active 1 goal linked to scheduled/document ed intervention 1 goal intervention scheduled/document ed in this visit Goals Goal Associated Problem Outcome Goal Met? Visit Notes Patient/caregiver will demonstrate ability to obtain, store, identify and administer ordered medications, keep accurate medication list in home, and adhere to medication schedule Description: Patient/caregiver will demonstrate ability to obtain, store, identify and administer ordered medications, keep accurate medication list in home, and adhere to medication schedule by 02/03/23. Medication Education No Patient/caregiver will be able to identify and report symptoms of sepsis Description: Patient/caregiver will be able to identify signs/symptoms of sepsis infection and will verbalize actions to take if suspected by 02/03/23. Sepsis No Patient to maintain parameters within physician-specified ranges throughout certification period Physician Specific Parameters No Manage Risk for falls Description: Patient/caregiver will verbalize knowledge of individualized fall prevention strategies by 02/03/23. Risk for Falls No Manage Pain Description: Patient/caregiver will verbalize knowledge and understanding of appropriate techniques to control pain, including pain medication and non-pharmacological techniques. Patient will verbalize or demonstrate an acceptable level of pain as evidenced by a pain score of 2/10 and improvement in ability to perform activities of daily living to be achieved by 02/03/23 Pain No Patient/caregiver will teach back high risk medication side effect and precaution education High Risk Medications No Manage discharge planning Description: Patient/caregiver will verbalize understanding of ongoing discharge plan provided related to disease management, arrangements for outpatient and/or community services, obtaining medications, supplies, and DME, as needed throughout certification period. Discharge No Improved Muscle Performance and/or ROM Description: LTG: Patient will demonstrate improved muscle performance to meet functional goals as evidenced by ability to tolerate 8 min or greater standing activity, to be achieved by 12/23/22. LTG: Patient and/or caregiver will verbalize/demonstrate independence with home exercise program, to improve functional mobility, to be achieved by 12/23/22. LTG: Patient will demonstrate improved left knee active range of motion to 3-95 degrees or greater, to meet functional goals, to be achieved by 12/23/22. PT Impaired muscle performance and/or ROM No Improved Gait Description: LTG: Patient will demonstrate improved gait ability as evidenced by ambulation 150 or greater feet with front wheeled walker progressing to cane as appropriate independently with AD, to return to safe household ambulation, in order to access rooms, leave home, to be achieved by 12/23/22 PT Impaired gait No Manage Orthopedic Condition Description: Improve patient and/or caregiver understanding of post surgical and/or non-surgical orthopedic intervention management as evidenced by patient and/or caregiver able to verbalize, demonstrate, and teach back instruction, to be achieved by 12/23/22. PT Orthopedic Condition No Demonstrate understanding of education Description: Short Term Goals: Patient will receive instruction in pain/edema mgmt, fall prevention/home safety, s/s of infection and when to call the MD, precautions and restrictions, and home exercises upon PT eval, to be acheived by 12/06/22. LTG: Patient and/or caregiver will understand educational instruction to be achieved by 12/23/22. PT Learning Assessment No Interventions Intervention Associated Problem/Goal Status Variance Visit Notes Medication Education Description: Evaluate/instruct patient/caregiver on obtaining, storing, identifying and administering ordered medications as well as keeping accurate medication list in the home and adhereing to medication schedule Problem:Medication Education Goal:Patient/caregive r will demonstrate ability to obtain, store, identify and administer ordered medications, keep accurate medication list in home, and adhere to medication schedule Completed Patient instructed on importance of keeping accurate medication list in home. Risk of Sepsis Description: Patient is at risk for sepsis. Monitor closely for s/s of sepsis. Problem:Sepsis Goal:Patient/caregive r will be able to identify and report symptoms of sepsis Completed SPO2 Description: Notify Dr. Guthrie if pulse ox is <92% at rest. Problem:Physician Specific Parameters Goal:Patient to maintain parameters within physician-specified ranges throughout certification period Completed Instruct on individual fall risk factors and strategies to prevent falls and injuries caused by falls. Problem:Risk for Falls Goal:Manage Risk for falls Completed PT: Patient instructed on Managing Impaired Functional Mobility: Use assistive device(s): front wheeled walker Instruct on pain and instruct on strategies to control pain Problem:Pain Goal:Manage Pain Completed patient instructed on techniques to control pain including Pharmacological measures and Non-Pharmacological measures; positioning/elevation and use of thermal modalities, apply ice to affected area for the following prescribed frequency: prn. Opioids- educated on high risk medication Problem:High Risk Medications Goal:Patient/caregive r will teach back high risk medication side effect and precaution education Completed patient educated on taking medication(s) as prescribed by provider. Do not stop medication or alter doses without speaking with your provider. Discuss medication effectiveness or side effect concerns with your provider and home care team. Only take opioids as prescribed, do not share your medications, and take proper precautions in storing and properly disposing of opioids once no longer needed. Possible side effects of opioid medication including sedation, decreased rate of breathing, and constipation. Report over sedation to prescribing provider and practice deep breathing techniques every hour while awake. Prevent constipation by increasing water and fiber intake, increasing activity as tolerated, and use stool softener(s) as prescribed. Antiplatelet- educated on high risk medication Problem:High Risk Medications Goal:Patient/caregive r will teach back high risk medication side effect and precaution education Completed patient educated on taking medication(s) as prescribed by provider. Do not stop medication or alter doses without speaking with your provider. Discuss medication effectiveness or side effect concerns with your provider and home care team. Discuss all medications you are taking, even [id number] medicines, with your provider and pharmacist since many drugs can interact with antiplatelet medications. If you forget to take a dose, DO NOT take a double dose. Take the missed dose as soon as possible on the same day. DO NOT take a double dose the next day to make up for the missed dose. Watch for signs of abnormal or excessive bleeding and bruising (refer to Bleeding Precautions education). Call your health care provider right away if you suspect something is wrong. Antibiotic- educated on high risk medication Problem:High Risk Medications Goal:Patient/caregive r will teach back high risk medication side effect and precaution education patient educated on taking medication(s) as prescribed by provider. Do not stop medication or alter doses without speaking with your provider. Discuss medication effectiveness or side effect concerns with your provider and home care team. Take the full dispensed amount even if you start feeling better, as bacteria can become resistant to antibiotic treatment if you do not finish your prescription. Common side effects are upset stomach and diarrhea. Take your antibiotics with food unless otherwise indicated to help with indigestion. Taking an [id number] probiotic or eating yogurt with live and active cultures three times a day can help prevent antibiotic-associated diarrhea. Call your provider immediately if you develop rashes or hives as this could be a delayed allergic reaction. Seek emergency treatment if you develop severe allergic reaction symptoms such as mouth or tongue swelling. Instruct on ongoing discharge plan Problem:Discharge Goal:Manage discharge planning Completed Ongoing Discharge plan: Discharge plan discussed with patient including frequency and duration for home OT and plan for transition to: outpatient therapy. Physical Therapy Therapeutic Exercises Problem:PT Impaired muscle performance and/or ROM Goal:Improved Muscle Performance and/or ROM Completed patient instructed on strengthening and range of motion exercises including anle pumps, quad and glut sets, hip abd and adduction, saq w/ manual assist, heel slides x's 10 each. standoing heel raises and hamstring curls x's 10 each. supine ext hang x's 5min. step flexion stretch x's 10. seated heel slides x's 5 with verbal cues for correct form and pace. patient instructed to perform home exercise program twice a day which included above exercises. Physical Therapy Gait Training Problem:PT Impaired gait Goal:Improved Gait Completed Gait training and instruction to patient on safe ambulation with front wheeled walker for 3x's 40 feet with supervision, with verbal and visual cues for corrections of gait deviations including heel to toe pattern, high march w/ LLE if needed to encourage knee flexion. ! step ambuation to enter/exit through garage, no rail and using ww Instruct on orthopedic precautions and weight bearing restrictions Description: Orthopedic precautions including left total knee: no knee flexed over pillow at rest. Weight bearing restrictions include: WBAT of involved extremity. Problem:PT Orthopedic Condition Goal:Manage Orthopedic Condition Completed patient instructed on orthopedic precautions. Instruct on management of edema Problem:PT Orthopedic Condition Goal:Manage Orthopedic Condition Completed Instruct patient on management of edema including elevation of LLE above the level of the heart and ice. Instruct on self-management of post surgical and/or non-surgical orthopedic intervention Problem:PT Orthopedic Condition Goal:Manage Orthopedic Condition Completed patient instructed on signs and symptoms of infection, signs and symptoms of DVT/PE, instructed on when to call provider and instructed on when to call 911. Instruct and educate on knowledge deficits Problem:PT Learning Assessment Goal:Demonstrate understanding of education Completed patient verbalize and/or demonstrate understanding of physical therapy education including pain management and home exercise program. Education methods include: verbal cues, written instructions and visual cues. Further education required to improve knowledge and compliance with home exercise program. 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 Discipline -Physical Therapy Problems Problem Description Start Date Status Goals Interve ntions Medication Education Disciplines: Skilled Services 12/06/2022 Active 1 goal linked to scheduled/document ed intervention 1 goal intervention scheduled/document ed in this visit Sepsis Disciplines: Skilled Services 12/06/2022 Active 1 goal linked to scheduled/document ed intervention 1 goal intervention scheduled/document ed in this visit Physician Specific Parameters Disciplines: Skilled Services 12/06/2022 Active 1 goal linked to scheduled/document ed intervention 1 goal intervention scheduled/document ed in this visit Risk for Falls Disciplines: Skilled Services 12/06/2022 Active 1 goal linked to scheduled/document ed intervention 1 goal intervention scheduled/document ed in this visit Pain Disciplines: Skilled Services 12/06/2022 Active 1 goal linked to scheduled/document ed intervention 1 goal intervention scheduled/document ed in this visit Discharge Disciplines: Skilled Services 12/06/2022 Active 1 goal linked to scheduled/document ed intervention 1 goal intervention scheduled/document ed in this visit PT Impaired muscle performance and/or ROM Disciplines: PT 12/06/2022 Active 1 goal linked to scheduled/document ed intervention 1 goal intervention scheduled/document ed in this visit PT Impaired mobility Disciplines: PT 12/06/2022 Active 1 goal linked to scheduled/document ed intervention 1 goal intervention scheduled/document ed in this visit PT Impaired gait Disciplines: PT 12/06/2022 Active 1 goal linked to scheduled/document ed intervention 1 goal intervention scheduled/document ed in this visit PT Orthopedic Condition Disciplines: PT 12/06/2022 Active 1 goal linked to scheduled/document ed intervention 3 goal interventions scheduled/document ed in this visit PT Learning Assessment Disciplines: PT 12/06/2022 Active 1 goal linked to scheduled/document ed intervention 1 goal intervention scheduled/document ed in this visit Goals Goal Associated Problem Outcome Goal Met? Visit Notes Patient/caregiver will demonstrate ability to obtain, store, identify and administer ordered medications, keep accurate medication list in home, and adhere to medication schedule Description: Patient/caregiver will demonstrate ability to obtain, store, identify and administer ordered medications, keep accurate medication list in home, and adhere to medication schedule by 02/03/23. Medication Education No Patient/caregiver will be able to identify and report symptoms of sepsis Description: Patient/caregiver will be able to identify signs/symptoms of sepsis infection and will verbalize actions to take if suspected by 02/03/23. Sepsis No Patient to maintain parameters within physician-specified ranges throughout certification period Physician Specific Parameters No Manage Risk for falls Description: Patient/caregiver will verbalize knowledge of individualized fall prevention strategies by 02/03/23. Risk for Falls No Manage Pain Description: Patient/caregiver will verbalize knowledge and understanding of appropriate techniques to control pain, including pain medication and non-pharmacological techniques. Patient will verbalize or demonstrate an acceptable level of pain as evidenced by a pain score of 2/10 and improvement in ability to perform activities of daily living to be achieved by 02/03/23 Pain No Manage discharge planning Description: Patient/caregiver will verbalize understanding of ongoing discharge plan provided related to disease management, arrangements for outpatient and/or community services, obtaining medications, supplies, and DME, as needed throughout certification period. Discharge No Improved Muscle Performance and/or ROM Description: LTG: Patient will demonstrate improved muscle performance to meet functional goals as evidenced by ability to tolerate 8 min or greater standing activity, to be achieved by 12/23/22. LTG: Patient and/or caregiver will verbalize/demonstrate independence with home exercise program, to improve functional mobility, to be achieved by 12/23/22. LTG: Patient will demonstrate improved left knee active range of motion to 3-95 degrees or greater, to meet functional goals, to be achieved by 12/23/22. PT Impaired muscle performance and/or ROM No Improved Bed Mobility Description: LTG: Patient will demonstrate improved bed mobility, ability to position self and supine <> sit independently to be achieved by 12/23/22 . PT Impaired mobility No Improved Gait Description: LTG: Patient will demonstrate improved gait ability as evidenced by ambulation 150 or greater feet with front wheeled walker progressing to cane as appropriate independently with AD, to return to safe household ambulation, in order to access rooms, leave home, to be achieved by 12/23/22 PT Impaired gait No Manage Orthopedic Condition Description: Improve patient and/or caregiver understanding of post surgical and/or non-surgical orthopedic intervention management as evidenced by patient and/or caregiver able to verbalize, demonstrate, and teach back instruction, to be achieved by 12/23/22. PT Orthopedic Condition No Demonstrate understanding of education Description: Short Term Goals: Patient will receive instruction in pain/edema mgmt, fall prevention/home safety, s/s of infection and when to call the MD, precautions and restrictions, and home exercises upon PT eval, to be acheived by 12/06/22. LTG: Patient and/or caregiver will understand educational instruction to be achieved by 12/23/22. PT Learning Assessment No Interventions Intervention Associated Problem/Goal Status Variance Visit Notes Medication Education Description: Evaluate/instruct patient/caregiver on obtaining, storing, identifying and administering ordered medications as well as keeping accurate medication list in the home and adhereing to medication schedule Problem:Medication Education Goal:Patient/caregive r will demonstrate ability to obtain, store, identify and administer ordered medications, keep accurate medication list in home, and adhere to medication schedule Completed Patient instructed on importance of keeping accurate medication list in home and adhering to medication schedule. Risk of Sepsis Description: Patient is at risk for sepsis. Monitor closely for s/s of sepsis. Problem:Sepsis Goal:Patient/caregive r will be able to identify and report symptoms of sepsis Completed SPO2 Description: Notify Dr. Guthrie if pulse ox is <92% at rest. Problem:Physician Specific Parameters Goal:Patient to maintain parameters within physician-specified ranges throughout certification period Completed Instruct on individual fall risk factors and strategies to prevent falls and injuries caused by falls. Problem:Risk for Falls Goal:Manage Risk for falls Completed PT: Patient instructed on Managing Impaired Functional Mobility: Use assistive device(s): front wheeled walker Instruct on pain and instruct on strategies to control pain Problem:Pain Goal:Manage Pain Completed patient instructed on techniques to control pain including Pharmacological measures and Non-Pharmacological measures; positioning/elevation and use of thermal modalities, apply ice to affected area for the following prescribed frequency: prn. Instruct on ongoing discharge plan Problem:Discharge Goal:Manage discharge planning Completed Ongoing Discharge plan: Discharge plan discussed with patient including frequency and duration for home PT and plan for transition to: outpatient therapy. Physical Therapy Therapeutic Exercises Problem:PT Impaired muscle performance and/or ROM Goal:Improved Muscle Performance and/or ROM Completed patient instructed on strengthening and range of motion exercises including ankle pumps, quad and glut sets, hip abd and adduction, saq and heel slides w/ belt, x's 10-12 each. supine ext hang x's 5min. stamdonh heel raises, hamstring curls w/ manual assist for over pressure, squats x's 10 each. seated heel slides x's 10 with verbal and tactile cues for correct form. patient instructed to perform home exercise program twice a day which included above exercises . Physical Therapy Bed Mobility Training Problem:PT Impaired mobility Goal:Improved Bed Mobility Completed Bed mobility training and instruction to patient, including supine<>sit with independent patient able to lift leg on/off bed today Physical Therapy Gait Training Problem:PT Impaired gait Goal:Improved Gait Completed Gait training and instruction to patient on safe ambulation with front wheeled walker and 1 crutcs for 4x's 60 feet with supervision, with verbal cues for corrections of gait deviations including heel to toe pattern. Instruct on orthopedic precautions and weight bearing restrictions Description: Orthopedic precautions including left total knee: no knee flexed over pillow at rest. Weight bearing restrictions include: WBAT of involved extremity. Problem:PT Orthopedic Condition Goal:Manage Orthopedic Condition Completed patient instructed on orthopedic precautions. Instruct on management of edema Problem:PT Orthopedic Condition Goal:Manage Orthopedic Condition Completed Instruct patient on management of edema including elevation of LLE above the level of the heart and ice. Instruct on self-management of post surgical and/or non-surgical orthopedic intervention Problem:PT Orthopedic Condition Goal:Manage Orthopedic Condition Completed patient instructed on signs and symptoms of infection, signs and symptoms of DVT/PE, instructed on when to call provider and instructed on when to call 911. Instruct and educate on knowledge deficits Problem:PT Learning Assessment Goal:Demonstrate understanding of education Completed patient verbalize and/or demonstrate understanding of physical therapy education including pain management and home exercise program. Education methods include: verbal cues. Further education required to improve knowledge and compliance with home exercise program. [facility] Visit Details Visit Type -PT AGENCY DEBBIE MARRERO Discipline -Physical Therapy Problems Problem Description Start Date Status Goals Interve ntions Medication Education Disciplines: Skilled Services 12/06/2022 Resolved on 12/22/2022 1 goal linked to scheduled/document ed intervention 1 goal intervention scheduled/document ed in this visit Sepsis Disciplines: Skilled Services 12/06/2022 Resolved on 12/22/2022 1 goal linked to scheduled/document ed intervention 1 goal intervention scheduled/document ed in this visit Physician Specific Parameters Disciplines: Skilled Services 12/06/2022 Resolved on 12/22/2022 1 goal linked to scheduled/document ed intervention 1 goal intervention scheduled/document ed in this visit Risk for Falls Disciplines: Skilled Services 12/06/2022 Resolved on 12/22/2022 1 goal linked to scheduled/document ed intervention 1 goal intervention scheduled/document ed in this visit Pain Disciplines: Skilled Services 12/06/2022 Resolved on 12/22/2022 1 goal linked to scheduled/document ed intervention 1 goal intervention scheduled/document ed in this visit High Risk Medications Disciplines: Skilled Services 12/06/2022 Resolved on 12/22/2022 1 goal linked to scheduled/document ed intervention 2 goal interventions scheduled/document ed in this visit Discharge Disciplines: Skilled Services 12/06/2022 Resolved on 12/22/2022 1 goal linked to scheduled/document ed intervention 1 goal intervention scheduled/document ed in this visit PT Impaired muscle performance and/or ROM Disciplines: PT 12/06/2022 Resolved on 12/22/2022 1 goal linked to scheduled/document ed intervention 1 goal intervention scheduled/document ed in this visit PT Impaired mobility Disciplines: PT 12/06/2022 Resolved on 12/22/2022 2 goals linked to scheduled/document ed interventions 2 goal interventions scheduled/document ed in this visit PT Impaired gait Disciplines: PT 12/06/2022 Resolved on 12/22/2022 1 goal linked to scheduled/document ed intervention 1 goal intervention scheduled/document ed in this visit PT Orthopedic Condition Disciplines: PT 12/06/2022 Resolved on 12/22/2022 1 goal linked to scheduled/document ed intervention 3 goal interventions scheduled/document ed in this visit PT Learning Assessment Disciplines: PT 12/06/2022 Resolved on 12/22/2022 1 goal linked to scheduled/document ed intervention 1 goal intervention scheduled/document ed in this visit Goals Goal Associated Problem Outcome Goal Met? Visit Notes Patient/caregiver will demonstrate ability to obtain, store, identify and administer ordered medications, keep accurate medication list in home, and adhere to medication schedule Description: Patient/caregiver will demonstrate ability to obtain, store, identify and administer ordered medications, keep accurate medication list in home, and adhere to medication schedule by 02/03/23. Medication Education Completed Yes Patient/caregiver will be able to identify and report symptoms of sepsis Description: Patient/caregiver will be able to identify signs/symptoms of sepsis infection and will verbalize actions to take if suspected by 02/03/23. Sepsis Completed Yes Patient to maintain parameters within physician-specified ranges throughout certification period Physician Specific Parameters Completed Yes Manage Risk for falls Description: Patient/caregiver will verbalize knowledge of individualized fall prevention strategies by 02/03/23. Risk for Falls Completed Yes Manage Pain Description: Patient/caregiver will verbalize knowledge and understanding of appropriate techniques to control pain, including pain medication and non-pharmacological techniques. Patient will verbalize or demonstrate an acceptable level of pain as evidenced by a pain score of 2/10 and improvement in ability to perform activities of daily living to be achieved by 02/03/23 Pain Completed Yes Patient/caregiver will teach back high risk medication side effect and precaution education High Risk Medications Completed Yes Manage discharge planning Description: Patient/caregiver will verbalize understanding of ongoing discharge plan provided related to disease management, arrangements for outpatient and/or community services, obtaining medications, supplies, and DME, as needed throughout certification period. Discharge Completed Yes Improved Muscle Performance and/or ROM Description: LTG: Patient will demonstrate improved muscle performance to meet functional goals as evidenced by ability to tolerate 8 min or greater standing activity, to be achieved by 12/23/22. LTG: Patient and/or caregiver will verbalize/demonstrate independence with home exercise program, to improve functional mobility, to be achieved by 12/23/22. LTG: Patient will demonstrate improved left knee active range of motion to 3-95 degrees or greater, to meet functional goals, to be achieved by 12/23/22. PT Impaired muscle performance and/or ROM Completed Yes Improved Transfers Description: LTG: Patient will demonstrate safe transfers to/from bed, chair, toilet and couch independently, to be achieved by 12/23/22 LTG: Patient will demonstrate safe transfers to/from shower and car with SBA, to be achieved by 12/23/22 PT Impaired mobility Completed Yes Improved Bed Mobility Description: LTG: Patient will demonstrate improved bed mobility, ability to position self and supine <> sit independently to be achieved by 12/23/22 . PT Impaired mobility Completed Yes Improved Gait Description: LTG: Patient will demonstrate improved gait ability as evidenced by ambulation 150 or greater feet with front wheeled walker progressing to cane as appropriate independently with AD, to return to safe household ambulation, in order to access rooms, leave home, to be achieved by 12/23/22 PT Impaired gait Completed Yes Manage Orthopedic Condition Description: Improve patient and/or caregiver understanding of post surgical and/or non-surgical orthopedic intervention management as evidenced by patient and/or caregiver able to verbalize, demonstrate, and teach back instruction, to be achieved by 12/23/22. PT Orthopedic Condition Completed Yes Demonstrate understanding of education Description: Short Term Goals: Patient will receive instruction in pain/edema mgmt, fall prevention/home safety, s/s of infection and when to call the MD, precautions and restrictions, and home exercises upon PT eval, to be acheived by 12/06/22. LTG: Patient and/or caregiver will understand educational instruction to be achieved by 12/23/22. PT Learning Assessment Completed Yes Interventions Intervention Associated Problem/Goal Status Variance Visit Notes Medication Education Description: Evaluate/instruct patient/caregiver on obtaining, storing, identifying and administering ordered medications as well as keeping accurate medication list in the home and adhereing to medication schedule Problem:Medication Education Goal:Patient/caregive r will demonstrate ability to obtain, store, identify and administer ordered medications, keep accurate medication list in home, and adhere to medication schedule Completed Patient instructed on importance of keeping accurate medication list in home and adhering to medication schedule. Risk of Sepsis Description: Patient is at risk for sepsis. Monitor closely for s/s of sepsis. Problem:Sepsis Goal:Patient/caregive r will be able to identify and report symptoms of sepsis Completed SPO2 Description: Notify Dr. Guthrie if pulse ox is <92% at rest. Problem:Physician Specific Parameters Goal:Patient to maintain parameters within physician-specified ranges throughout certification period Completed Instruct on individual fall risk factors and strategies to prevent falls and injuries caused by falls. Problem:Risk for Falls Goal:Manage Risk for falls Completed PT: Patient instructed on Eliminating Environmental Hazards: Keep pathways clear, Remove unsafe rugs and Move furniture from pathways Managing Impaired Functional Mobility: Use assistive device(s): crutches Managing Pain Instruct on pain and instruct on strategies to control pain Problem:Pain Goal:Manage Pain Completed patient instructed on techniques to control pain including Pharmacological measures and Non-Pharmacological measures; rest and positioning/elevation. Opioids- educated on high risk medication Problem:High Risk Medications Goal:Patient/caregive r will teach back high risk medication side effect and precaution education Completed patient educated on taking medication(s) as prescribed by provider. Do not stop medication or alter doses without speaking with your provider. Discuss medication effectiveness or side effect concerns with your provider and home care team. Only take opioids as prescribed, do not share your medications, and take proper precautions in storing and properly disposing of opioids once no longer needed. Possible side effects of opioid medication including sedation, decreased rate of breathing, and constipation. Report over sedation to prescribing provider and practice deep breathing techniques every hour while awake. Prevent constipation by increasing water and fiber intake, increasing activity as tolerated, and use stool softener(s) as prescribed. Antiplatelet- educated on high risk medication Problem:High Risk Medications Goal:Patient/caregive r will teach back high risk medication side effect and precaution education Completed patient educated on taking medication(s) as prescribed by provider. Do not stop medication or alter doses without speaking with your provider. Discuss medication effectiveness or side effect concerns with your provider and home care team. Discuss all medications you are taking, even [id number] medicines, with your provider and pharmacist since many drugs can interact with antiplatelet medications. If you forget to take a dose, DO NOT take a double dose. Take the missed dose as soon as possible on the same day. DO NOT take a double dose the next day to make up for the missed dose. Watch for signs of abnormal or excessive bleeding and bruising (refer to Bleeding Precautions education). Call your health care provider right away if you suspect something is wrong. Instruct on final discharge plan and deliver discharge instructions Problem:Discharge Goal:Manage discharge planning Completed Delivered Discharge plan: Discharge plan discussed with patient for plan for transition to: outpatient therapy Physical Therapy Therapeutic Exercises Problem:PT Impaired muscle performance and/or ROM Goal:Improved Muscle Performance and/or ROM Completed patient instructed on strengthening and range of motion exercises including ankle pumps, quad and glut sets, hip abd and adduction, saq and heel slides w/ belt, x's 10-12 each. supine ext hang x's 5min. stamdonh heel raises, hamstring curls w/ manual assist for over pressure, squats x's 10 each. seated heel slides x's 10 with verbal and tactile cues for correct form. patient instructed to perform home exercise program twice a day which included above exercises Physical Therapy Transfer Training Problem:PT Impaired mobility Goal:Improved Transfers Completed SRAVANI transfers with safe/proper technique Physical Therapy Bed Mobility Training Problem:PT Impaired mobility Goal:Improved Bed Mobility Completed SRAVANI bed mobility Physical Therapy Gait Training Problem:PT Impaired gait Goal:Improved Gait Completed Indep amb with single crutch , step recip pattern with cues to develop the toe off Instruct on orthopedic precautions and weight bearing restrictions Description: Orthopedic precautions including left total knee: no knee flexed over pillow at rest. Weight bearing restrictions include: WBAT of involved extremity. Problem:PT Orthopedic Condition Goal:Manage Orthopedic Condition Completed patient instructed on orthopedic precautions. Instruct on management of edema Problem:PT Orthopedic Condition Goal:Manage Orthopedic Condition Completed Instruct patient on management of edema including elevation of LLE above the level of the heart and ice. Instruct on self-management of post surgical and/or non-surgical orthopedic intervention Problem:PT Orthopedic Condition Goal:Manage Orthopedic Condition Completed patient instructed on managagement of orthopedic condition, staying well hydrated, eating foods with high protein, signs and symptoms of infection, signs and symptoms of DVT/PE and instructed on when to call provider. Instruct and educate on knowledge deficits Problem:PT Learning Assessment Goal:Demonstrate understanding of education Completed patient verbalize and/or demonstrate understanding of physical therapy education including orthopedic condition management, surgical precautions, pain management, fall prevention strategies, home safety, functional activity and home exercise program. Education methods include: verbal cues. documented in this encounter [facility] for referral (narrative)* Diagnostic Procedure Only (Routine) - Pending Review Specialty Diagnoses / Procedures Referred By Petey t Referred To Contact XR IMAGING Diagnoses Primary osteoarthritis of left knee Procedures XR KNEE GENERAL 4V AP BOTH/PA BOTH/LAT/MERC LEFT RADIOLOGIC EXAM KNEE COMPLETE 4/MORE VIEWS Harvey Vargas MD [address] [place] [address] Xr Imaging Referral ID Status Reason Start Date Expiration Date Visits Requested Visits Authorized [id number] Pending Review Auto-Generat ed Referral 07/20/2022 08/19/2023 1 1 [facility] for referral (narrative)* Diagnostic Procedure Only (Routine) - Pending Review Specialty Diagnoses / Procedures Referred By Contac t Referred To Contact XR IMAGING Diagnoses Left knee pain, unspecified chronicity Procedures XR KNEE POST OP 3V AP/LAT/MERCHANT LEFT RADIOLOGIC EXAMINATION KNEE 3 VIEWS Josep Gamez APRN.CNP [address] [place] [address] Xr Imaging Referral ID Status Reason Start Date Expiration Date Visits Requested Visits Authorized [id number] Pending Review Auto-Generat ed Referral 12/12/2022 01/10/2024 1 1 [facility] for visit Narrative* Diagnostic Procedure Only (Routine) - Pending Review Specialty Diagnoses / Procedures Referred By Contac t Referred To Contact XR IMAGING Diagnoses Primary osteoarthritis of left knee Procedures XR KNEE GENERAL 4V AP BOTH/PA BOTH/LAT/MERC LEFT RADIOLOGIC EXAM KNEE COMPLETE 4/MORE VIEWS Harvey Vargas MD [address] [place] [address] Xr Imaging Referral ID Status Reason Start Date Expiration Date Visits Requested Visits Authorized [id number] Pending Review Auto-Generat ed Referral 07/20/2022 08/19/2023 1 1 [facility] Reason for Referral Specialty Diagnoses / Procedures Referred By Contac t Referred To Contact MR IMAGING Diagnoses Localized swelling, mass, or lump of left lower extremity Procedures MRI KNEE WO IVCON LT MRI ANY JT LOWER EXTREM W/O CONTRAST MATRL Shannan Guthrie MD [address] [address] Mr Imaging Referral ID Status Reason Start Date Expiration Date Visits Requested Visits Authorized [id number] Pending Review Auto-Generat ed Referral 09/12/2022 10/12/2023 1 1 Specialty Diagnoses / Procedures Referred By Contac t Referred To Contact CT IMAGING Diagnoses Chronic pain of left knee Procedures CT KNEE WO IVCON LT CT LOWER EXTREMITY W/O CONTRAST MATERIAL Shannan Guthrie MD [address] [place] [address] [id number] [address] Imaging Referral ID Status Reason Start Date Expiration Date Visits Requested Visits Authorized [id number] Authorized Auto-Generat ed Referral 2 11/02/2023 1 1 Specialty Diagnoses / Procedures Referred By Contac t Referred To Contact CT IMAGING Diagnoses Post-traumatic osteoarthritis of left knee Preop examination Procedures CT KNEE WO IVCON LT CT LOWER EXTREMITY W/O CONTRAST MATERIAL Josep Gamez, MANAGING COGNITIVE ENGINEER.HEALTH INFORMATION SPECIALIST [address] [place] [address] Ct Imaging Referral ID Status Reason Start Date Expiration Date Visits Requested Visits Authorized [id number] Authorized Auto-Generat ed Referral 11/23/2022 12/23/2023 1 1 Referral ID Status Reason Start Date Expiration Date V isits Requested Visits Authorized [id number] Closed Auto-Generate d Referral 11/23/2022 12/23/2023 1 1 Specialty Diagnoses / Procedures Referred By Contac t Referred To Contact [facility] Diagnoses Stiffness of left knee Procedures CONSULT TO PHYSICAL THERAPY PHYSICAL THERAPY EVALUATION HIGH COMPLEX 45 MINS Josep Gamez, MANAGING COGNITIVE ENGINEER.HEALTH INFORMATION SPECIALIST [address] [place] [address] [facility] [address] [place] [id number] Referral ID Status Reason Start Date Expiration Date Visits Requested Visits Authorized [id number] Pending Review Auto-Generat ed Referral 12/15/2022 12/15/2023 1 1 Referral ID Status Reason Start Date Expiration Date Visits Requested Visits Authorized [id number] Pending Review Auto-Generat ed Referral 12/19/2022 12/19/2023 1 1 Specialty Diagnoses / Procedures Referred By Contac t Referred To Contact [facility] Diagnoses Stiffness of left knee Procedures PT REHAB FOLLOW UP ORDER THERAPEUTIC EXERCISES RE, EA 15 MIN. Nora Salazar, PT [facility] [address] [place] [address] Referral ID Status Reason Start Date Expiration Date Visits Requested Visits Authorized [id number] Pending Review PCP Requested Referral Auto-Generate d Referral 02/14/2023 05/15/2023 1 1 Specialty Diagnoses / Procedures Referred By Contac t Referred To Contact MR IMAGING Diagnoses Localized swelling, mass, or lump of left lower extremity Procedures MRI KNEE WO IVCON LT MRI ANY JT LOWER EXTREM W/O CONTRAST Shannan Lowry MD [address] [address] [place] [address] Advance Directives Documents on File Type Date Recorded Patient Managed Care Analyst Expl anation Advance Directive(s) 12/04/2022 11:06 AM Latest Code Status on File Code Status Date Activated Date Inactivated Comments Full Code 12/06/2022 4:44 PM Documents on File Type Date Recorded Patient Managed Care Analyst Expl anation Advance Directive(s) 12/04/2022 11:06 AM Latest Code Status on File Code Status Date Activated Date Inactivated Comments Full Code 12/06/2022 4:44 PM Latest Code Status on File Code Status Date Activated Date Inactivated Comments Full Code 12/06/2022 4:44 PM Summary Purpose Family History No Family History Records FoundNo Family History Records Found Additional Source Comments Source Comments (unrecognize d section and content) In the event this informatio n is protected by the Federal Confidentiality of Alcohol and Drug Abuse Patient Records regulations: The Federal rules restrict any use of the information to criminally investigate or prosecute any alcohol or drug abuse patient.[facility] the event this information is protected by the Federal Confidentiality of Alcohol and Drug Abuse Patient Records regulations: The Federal rules restrict any use of the information to criminally investigate or prosecute any alcohol or drug abuse patient.[facility] the event this information is protected by the Federal Confidentiality of Alcohol and Drug Abuse Patient Records regulations: The Federal rules restrict any use of the information to criminally investigate or prosecute any alcohol or drug abuse patient.[facility] the event this information is protected by the Federal Confidentiality of Alcohol and Drug Abuse Patient Records regulations: The Federal rules restrict any use of the information to criminally investigate or prosecute any alcohol or drug abuse patient.[facility] the event this information is protected by the Federal Confidentiality of Alcohol and Drug Abuse Patient Records regulations: The Federal rules restrict any use of the information to criminally investigate or prosecute any alcohol or drug abuse patient.[facility] the event this information is protected by the Federal Confidentiality of Alcohol and Drug Abuse Patient Records regulations: The Federal rules restrict any use of the information to criminally investigate or prosecute any alcohol or drug abuse patient.[facility] the event this information is protected by the Federal Confidentiality of Alcohol and Drug Abuse Patient Records regulations: The Federal rules restrict any use of the information to criminally investigate or prosecute any alcohol or drug abuse patient.[facility] the event this information is protected by the Federal Confidentiality of Alcohol and Drug Abuse Patient Records regulations: The Federal rules restrict any use of the information to criminally investigate or prosecute any alcohol or drug abuse patient.[facility] the event this information is protected by the Federal Confidentiality of Alcohol and Drug Abuse Patient Records regulations: The Federal rules restrict any use of the information to criminally investigate or prosecute any alcohol or drug abuse patient.[facility] the event this information is protected by the Federal Confidentiality of Alcohol and Drug Abuse Patient Records regulations: The Federal rules restrict any use of the information to criminally investigate or prosecute any alcohol or drug abuse patient.[facility] the event this information is protected by the Federal Confidentiality of Alcohol and Drug Abuse Patient Records regulations: The Federal rules restrict any use of the information to criminally investigate or prosecute any alcohol or drug abuse patient.[facility] the event this information is protected by the Federal Confidentiality of Alcohol and Drug Abuse Patient Records regulations: The Federal rules restrict any use of the information to criminally investigate or prosecute any alcohol or drug abuse patient.[facility] the event this information is protected by the Federal Confidentiality of Alcohol and Drug Abuse Patient Records regulations: The Federal rules restrict any use of the information to criminally investigate or prosecute any alcohol or drug abuse patient.[facility] the event this information is protected by the Federal Confidentiality of Alcohol and Drug Abuse Patient Records regulations: The Federal rules restrict any use of the information to criminally investigate or prosecute any alcohol or drug abuse patient.[facility] the event this information is protected by the Federal Confidentiality of Alcohol and Drug Abuse Patient Records regulations: The Federal rules restrict any use of the information to criminally investigate or prosecute any alcohol or drug abuse patient.[facility] the event this information is protected by the Federal Confidentiality of Alcohol and Drug Abuse Patient Records regulations: The Federal rules restrict any use of the information to criminally investigate or prosecute any alcohol or drug abuse patient.[facility] HospitalIn the event this information is protected by the Federal Confidentiality of Alcohol and Drug Abuse Patient Records regulations: The Federal rules restrict any use of the information to criminally investigate or prosecute any alcohol or drug abuse patient.[facility] HospitalIn the event this information is protected by the Federal Confidentiality of Alcohol and Drug Abuse Patient Records regulations: The Federal rules restrict any use of the information to criminally investigate or prosecute any alcohol or drug abuse patient.[facility] HospitalIn the event this information is protected by the Federal Confidentiality of Alcohol and Drug Abuse Patient Records regulations: The Federal rules restrict any use of the information to criminally investigate or prosecute any alcohol or drug abuse patient.[facility] HospitalIn the event this information is protected by the Federal Confidentiality of Alcohol and Drug Abuse Patient Records regulations: The Federal rules restrict any use of the information to criminally investigate or prosecute any alcohol or drug abuse patient.[facility] HospitalIn the event this information is protected by the Federal Confidentiality of Alcohol and Drug Abuse Patient Records regulations: The Federal rules restrict any use of the information to criminally investigate or prosecute any alcohol or drug abuse patient.[facility] HospitalIn the event this information is protected by the Federal Confidentiality of Alcohol and Drug Abuse Patient Records regulations: The Federal rules restrict any use of the information to criminally investigate or prosecute any alcohol or drug abuse patient.[facility] HospitalIn the event this information is protected by the Federal Confidentiality of Alcohol and Drug Abuse Patient Records regulations: The Federal rules restrict any use of the information to criminally investigate or prosecute any alcohol or drug abuse patient.[facility] HospitalIn the event this information is protected by the Federal Confidentiality of Alcohol and Drug Abuse Patient Records regulations: The Federal rules restrict any use of the information to criminally investigate or prosecute any alcohol or drug abuse patient.[facility] HospitalIn the event this information is protected by the Federal Confidentiality of Alcohol and Drug Abuse Patient Records regulations: The Federal rules restrict any use of the information to criminally investigate or prosecute any alcohol or drug abuse patient.[facility] HospitalIn the event this information is protected by the Federal Confidentiality of Alcohol and Drug Abuse Patient Records regulations: The Federal rules restrict any use of the information to criminally investigate or prosecute any alcohol or drug abuse patient.[facility] HospitalIn the event this information is protected by the Federal Confidentiality of Alcohol and Drug Abuse Patient Records regulations: The Federal rules restrict any use of the information to criminally investigate or prosecute any alcohol or drug abuse patient.[facility] HospitalIn the event this information is protected by the Federal Confidentiality of Alcohol and Drug Abuse Patient Records regulations: The Federal rules restrict any use of the information to criminally investigate or prosecute any alcohol or drug abuse patient.[facility] HospitalIn the event this information is protected by the Federal Confidentiality of Alcohol and Drug Abuse Patient Records regulations: The Federal rules restrict any use of the information to criminally investigate or prosecute any alcohol or drug abuse patient.[facility] HospitalIn the event this information is protected by the Federal Confidentiality of Alcohol and Drug Abuse Patient Records regulations: The Federal rules restrict any use of the information to criminally investigate or prosecute any alcohol or drug abuse patient.[facility] HospitalIn the event this information is protected by the Federal Confidentiality of Alcohol and Drug Abuse Patient Records regulations: The Federal rules restrict any use of the information to criminally investigate or prosecute any alcohol or drug abuse patient.[facility] HospitalIn the event this information is protected by the Federal Confidentiality of Alcohol and Drug Abuse Patient Records regulations: The Federal rules restrict any use of the information to criminally investigate or prosecute any alcohol or drug abuse patient.[facility] HospitalIn the event this information is protected by the Federal Confidentiality of Alcohol and Drug Abuse Patient Records regulations: The Federal rules restrict any use of the information to criminally investigate or prosecute any alcohol or drug abuse patient.[facility] HospitalIn the event this information is protected by the Federal Confidentiality of Alcohol and Drug Abuse Patient Records regulations: The Federal rules restrict any use of the information to criminally investigate or prosecute any alcohol or drug abuse patient.[facility] HospitalIn the event this information is protected by the Federal Confidentiality of Alcohol and Drug Abuse Patient Records regulations: The Federal rules restrict any use of the information to criminally investigate or prosecute any alcohol or drug abuse patient.[facility] HospitalIn the event this information is protected by the Federal Confidentiality of Alcohol and Drug Abuse Patient Records regulations: The Federal rules restrict any use of the information to criminally investigate or prosecute any alcohol or drug abuse patient.[facility] HospitalIn the event this information is protected by the Federal Confidentiality of Alcohol and Drug Abuse Patient Records regulations: The Federal rules restrict any use of the information to criminally investigate or prosecute any alcohol or drug abuse patient.[facility] HospitalIn the event this information is protected by the Federal Confidentiality of Alcohol and Drug Abuse Patient Records regulations: The Federal rules restrict any use of the information to criminally investigate or prosecute any alcohol or drug abuse patient.[facility] HospitalIn the event this information is protected by the Federal Confidentiality of Alcohol and Drug Abuse Patient Records regulations: The Federal rules restrict any use of the information to criminally investigate or prosecute any alcohol or drug abuse patient.[facility] HospitalIn the event this information is protected by the Federal Confidentiality of Alcohol and Drug Abuse Patient Records regulations: The Federal rules restrict any use of the information to criminally investigate or prosecute any alcohol or drug abuse patient.[facility] HospitalIn the event this information is protected by the Federal Confidentiality of Alcohol and Drug Abuse Patient Records regulations: The Federal rules restrict any use of the information to criminally investigate or prosecute any alcohol or drug abuse patient.[facility] HospitalIn the event this information is protected by the Federal Confidentiality of Alcohol and Drug Abuse Patient Records regulations: The Federal rules restrict any use of the information to criminally investigate or prosecute any alcohol or drug abuse patient.[facility] Reason for Visit (unrecogniz ed section and content) Specialty Diagnoses / Procedures Referred By Petey james Referred To Contact [facility] Diagnoses Stiffness of left knee Procedures CONSULT TO PHYSICAL THERAPY PHYSICAL THERAPY EVALUATION HIGH COMPLEX 45 [place] [address] [facility] [address] [address] Referral ID Status Reason Start Date Expiration Date Visits Requested Visits Authorized [id number] Authorized Auto-Generat ed Referral 11/12/2022 11/11/2023 30 30 Reason Comments PT Progress Note Reason Comments Follow Up labs Results - Mri labs Specialty Diagnoses / Procedures Referred By Petey james Referred To Contact Diagnoses outpatient services Procedures outpatient services Self [facility] Dept Referral ID Status Reason Start Date Expiration Date V isits Requested Visits Authorized [id number] Closed Patient Cleared - Qualified 100% FAS 07/07/2022 10/05/2022 99 99 Reason Comments consult with colleague Reason Comments New Pain Referral ID Status Reason Start Date Expiration Date Visits Requested Visits Authorized [id number] Authorized Patient Cleared - Qualified 100% FAS 07/07/2022 10/05/2022 99 99 Reason Comments Patient Question Reason Comments Schedule Surgery Reason Comments Pre-Op Teaching Reason Comments Consult Reason Comments Orders Appointment Reason Comments Received Outside Medical Records Specialty Diagnoses / Procedures Referred By Contac t Referred To Contact CT IMAGING Diagnoses Post-traumatic osteoarthritis of left knee Preop examination Procedures CT KNEE WO IVCON LT CT LOWER EXTREMITY W/O CONTRAST MATERIAL Josep Gamez APRN.HEALTH INFORMATION SPECIALIST [address] [place] [id number] Imaging Referral ID Status Reason Start Date Expiration Date V isits Requested Visits Authorized [id number] Closed Auto-Generate d Referral 11/23/2022 12/23/2023 1 1 Reason Comments Follow Up Phone Call Reason Comments Home Care CONFIRMATION CALL Reason Comments 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 Follow Up Reason Comments Home Care Bandage removal Reason Comments Home Care OP PT orders Reason Comments Established Patient Follow Up Post Op Knee Replacement Specialty Diagnoses / Procedures Referred By Rebeccaac t Referred To Contact Orthopedics / ORTHOPAEDIC SURGERY Diagnoses S/P Robotic L TKA 12/04/22 Procedures POST OP Self Josep Gamez APRN.[address] [address] Referral ID Status Reason Start Date Expiration Date Visits Requested Visits Authorized [id number] Outside PCP Patient Cleared - INN Insurance Found 12/19/2022 03/19/2023 1 1 Reason Comments dental antibiotic Reason Comments Post Op Knee Replacement Reason Comments PT Progress Note Specialty Diagnoses / Procedures Referred By Contac t Referred To Contact [facility] Diagnoses Stiffness of left knee Procedures CONSULT TO PHYSICAL THERAPY PHYSICAL THERAPY EVALUATION HIGH COMPLEX 45 MINS Josep Gamez, CHARY.[address] [address] [facility] [place] [address] [place] [address] Reason Comments Follow Up Knee Replacement Specialty Diagnoses / Procedures Referred By Contac t Referred To Contact Diagnoses outpatient services Procedures outpatient [place] [address] Care Teams (unrecognized sec tion and content) Nuclear Equipment Test Engineer Relationship Specialty Start Date End Date Malachi Dumont MD [address] [place] [address] PCP - General Family Medicine 09/12/22 Nuclear Equipment Test Engineer Relationship Specialty Start Date End Date Malachi Dumont MD [address] [place], [place] [address] PCP - General Family Medicine 09/12/22 Nuclear Equipment Test Engineer Relationship Specialty Start Date End Date Malachi Dumont MD [address] [place], [place] [address] PCP - General Family Medicine 09/12/22 Nuclear Equipment Test Engineer Relationship Specialty Start Date End Date Malachi Dumont MD [address] [place] [address] PCP - General Family Medicine 09/12/22 Garry Cohen, [facility] [address] [place] [address] Specialty Salesperson [employer] Orthopedics 10/10/22 01/11/23 Nuclear Equipment Test Engineer Relationship Specialty Start Date End Date Malachi Dumont MD [address] [place] [address] PCP - General Family Medicine 09/12/22 Garry Cohen, [facility] [address] [place] [address] Specialty Salesperson [employer] Orthopedics 10/10/22 01/11/23 Nuclear Equipment Test Engineer Relationship Specialty Start Date End Date Malachi Dumont MD [address] [place] [address] PCP - General Family Medicine 09/12/22 Garry Cohen, [facility] [address] [place] [address] Specialty Salesperson [employer] Orthopedics 10/10/22 01/11/23 Nuclear Equipment Test Engineer Relationship Specialty Start Date End Date Malachi Dumont MD [address] [place] [address] PCP - General Family Medicine 09/12/22 Garry Cohen, [facility] [address] [place] [address] Specialty Salesperson [employer] Orthopedics 10/10/22 01/11/23 Nuclear Equipment Test Engineer Relationship Specialty Start Date End Date Malachi Dumont MD [address] [place] [address] PCP - General Family Medicine 09/12/22 Garry Cohen, [facility] [address] [place] [address] Specialty Salesperson [employer] Orthopedics 10/10/22 01/11/23 Nuclear Equipment Test Engineer Relationship Specialty Start Date End Date Malachi Dumont MD [address] [place] [address] PCP - General Family Medicine 09/12/22 MiladyGarry hatch, [facility] [address] [place] [address] Specialty Salesperson [employer] Orthopedics 10/10/22 01/11/23 Nuclear Equipment Test Engineer Relationship Specialty Start Date End Date Malachi Dumont MD [address] [place] [address] PCP - General Family Medicine 09/12/22 Garry Cohen, [facility] [address] [place] [address] Specialty Salesperson [employer] Orthopedics 10/10/22 01/11/23 Shannan Guthrie MD [address] [place] [address] Home Care Provider Orthopedics 12/05/22 Josep Gamez, MANAGING COGNITIVE ENGINEER.HEALTH INFORMATION SPECIALIST [address] [address] Referring Orthopedics 12/05/22 Ibis Castillo, PT [address] [place] [address] Shop Tailor Post Acute Care 12/05/22 Nuclear Equipment Test Engineer Relationship Specialty Start Date End Date Malachi Dumont MD [address] [place] [address] PCP - General Family Medicine 09/12/22 Garry Cohen, [facility] [address] [place] [address] Specialty Salesperson [employer] Orthopedics 10/10/22 01/11/23 Shannan Guthrie MD [address] [place], [place] [phone] Home Care Provider Orthopedics 12/05/22 Josep Gamez, MANAGING COGNITIVE ENGINEER.HEALTH INFORMATION SPECIALIST [address] [place] [address] Referring Orthopedics 12/05/22 Ibis Castillo, PT [address] [place] [address] Shop Tailor Post Acute Care 12/05/22 Nuclear Equipment Test Engineer Relationship Specialty Start Date End Date Malachi Dumont MD [address] [place] [address] PCP - General Family Medicine 09/12/22 Garry Cohen, [facility] [address] [place] [address] Specialty Salesperson [employer] Orthopedics 10/10/22 01/11/23 Shannan Guthrie MD [address] [place], [place] [phone] Home Care Provider Orthopedics 12/05/22 Josep Gamez, MANAGING COGNITIVE ENGINEER.HEALTH INFORMATION SPECIALIST [address] [place] [address] Referring Orthopedics 12/05/22 Ibis Castillo, PT [address] [place] [address] Shop Tailor Post Acute Care 12/05/22 Nuclear Equipment Test Engineer Relationship Specialty Start Date End Date Malachi Dumont MD [address] [place], [place] [address] PCP - General Family Medicine 09/12/22 Garry Cohen, [facility] [address] [place] [address] Specialty Salesperson [employer] Orthopedics 10/10/22 01/11/23 Shannan Guthrie MD [address] [place], [place] [phone] Home Care Provider Orthopedics 12/05/22 Josep Gamez, CHARY.HEALTH INFORMATION SPECIALIST [address] [place] [address] Referring Orthopedics 12/05/22 Ibis Castillo, PT [address] [place], [place] [phone] Shop Tailor Post Acute Care 12/05/22 Nuclear Equipment Test Engineer Relationship Specialty Start Date End Date Malachi Dumont MD [address] [place] [address] PCP - General Family Medicine 09/12/22 Garry Cohen [facility] [address] [place] [address] Specialty Salesperson [employer] Orthopedics 10/10/22 01/11/23 Shannan Guthrie MD [address] [place] [address] Home Care Provider Orthopedics 12/05/22 Josep Gamez, CHARY.HEALTH INFORMATION SPECIALIST [address] [address] Referring Orthopedics 12/05/22 Ibis Castillo, PT [address] [place] [address] Shop Tailor Post Acute Care 12/05/22 Nuclear Equipment Test Engineer Relationship Specialty Start Date End Date Malachi Dumont MD [address] [place], [place] [id number] PCP - General Family Medicine 09/12/22 Garry Cohen, [facility] [address] [place] [address] Specialty Salesperson [employer] Orthopedics 10/10/22 01/11/23 Shannan Guthrie MD [address] [place], [place] [phone] Home Care Provider Orthopedics 12/05/22 Josep Gamez, MANAGING COGNITIVE ENGINEER.HEALTH INFORMATION SPECIALIST [address] [address] Referring Orthopedics 12/05/22 Ibis Castillo, PT [address] [place] [address] Shop Tailor Post Acute Care 12/05/22 Nuclear Equipment Test Engineer Relationship Specialty Start Date End Date Malachi Dumont MD [address] [place], [place] [address] PCP - General Family Medicine 09/12/22 Garry Cohen, [facility] [address] [place] [address] Specialty Salesperson [employer] Orthopedics 10/10/22 01/11/23 Shannan Guthrie MD [address] [place] [address] Home Care Provider Orthopedics 12/05/22 Josep Gamez, MANAGING COGNITIVE ENGINEER.HEALTH INFORMATION SPECIALIST [address] [address] Referring Orthopedics 12/05/22 Ibis Castillo, PT [address] [place] [address] Shop Tailor Post Acute Care 12/05/22 Nuclear Equipment Test Engineer Relationship Specialty Start Date End Date Malachi Dumont MD [address] [place] [address] PCP - General Family Medicine 09/12/22 Garry Cohen, [facility] [address] [place] [address] Specialty Salesperson [employer] Orthopedics 10/10/22 01/11/23 Shannan Guthrie MD [address] [place], [place] [phone] Home Care Provider Orthopedics 12/05/22 Josep Gamez, CHARY.HEALTH INFORMATION SPECIALIST [address] [address] Referring Orthopedics 12/05/22 Ibis Csatillo, PT [address] [place] [address] Shop Tailor Post Acute Care 12/05/22 Nuclear Equipment Test Engineer Relationship Specialty Start Date End Date Malachi Dumont MD [address] [facility] [place] [address] PCP - General Family Medicine 09/12/22 Garry Cohen, [facility] [address] [place] [address] Specialty Salesperson [employer] Orthopedics 10/10/22 01/11/23 Shannan Guthrie MD [address] [place] [address] Home Care Provider Orthopedics 12/05/22 Josep Gamez, CHARY.HEALTH INFORMATION SPECIALIST [address] [address] Referring Orthopedics 12/05/22 Ibis Castillo, PT [address] [place] [address] Shop Tailor Post Acute Care 12/05/22 Nuclear Equipment Test Engineer Relationship Specialty Start Date End Date Malachi Dumont MD [address] [place] [address] PCP - General Family Medicine 09/12/22 Garry Cohen, [facility] [address] [place] [address] Specialty Salesperson [employer] Orthopedics 10/10/22 01/11/23 Shannan Guthrie MD [address] [place], [place] [phone] Home Care Provider Orthopedics 12/05/22 Josep Gamez, CHARY.HEALTH INFORMATION SPECIALIST [address] [place] [address] Referring Orthopedics 12/05/22 Ibis Castillo, PT [address] [place] [address] Shop Tailor Post Acute Care 12/05/22 Nuclear Equipment Test Engineer Relationship Specialty Start Date End Date Malachi Dumont MD [address] [place] [address] PCP - General Family Medicine 09/12/22 Garry Cohen, [facility] [address] [place] [address] Specialty Salesperson [employer] Orthopedics 10/10/22 01/11/23 Shannan Guthrie MD [address] [place] [address] Home Care Provider Orthopedics 12/05/22 Josep Gamez, MANAGING COGNITIVE ENGINEER.HEALTH INFORMATION SPECIALIST [address] [place] [address] Referring Orthopedics 12/05/22 Ibis Castillo, PT [address] [place] [address] Shop Tailor Post Acute Care 12/05/22 Nuclear Equipment Test Engineer Relationship Specialty Start Date End Date Malachi Dumont MD [address] [place] [address] PCP - General Family Medicine 09/12/22 Garry Cohen, [facility] [address] [place] [address] Specialty Salesperson [employer] Orthopedics 10/10/22 01/11/23 Shannan Guthrie MD [address] [place], [place] [phone] Home Care Provider Orthopedics 12/05/22 Josep Gamez APRN.HEALTH INFORMATION SPECIALIST [address] [address] Referring Orthopedics 12/05/22 Ibis Castillo, PT [address] [place] [address] Shop Tailor Post Acute Care 12/05/22 Nuclear Equipment Test Engineer Relationship Specialty Start Date End Date Malachi Dumont MD [address] [place] [address] PCP - General Family Medicine 09/12/22 Garry Cohen [facility] [address] [place] [address] Specialty Salesperson [employer] Orthopedics 10/10/22 01/11/23 Shannan Guthrie MD [address] [place] [address] Home Care Provider Orthopedics 12/05/22 Josep Gamez APRN.HEALTH INFORMATION SPECIALIST [address] [address] Referring Orthopedics 12/05/22 Ibis Castillo, PT [address] [place] [address] Shop Tailor Post Acute Care 12/05/22 Nuclear Equipment Test Engineer Relationship Specialty Start Date End Date Malachi Dumont MD [address] [facility] [place] [address] PCP - General Family Medicine 09/12/22 Shannan Guthrie MD [address] [place] [address] Home Care Provider Orthopedics 12/05/22 Josep Gamez APRN.HEALTH INFORMATION SPECIALIST [address] [place] [address] Referring Orthopedics 12/05/22 Ibis Castillo, PT [address] [place] [address] Shop Tailor Post Acute Care 12/05/22 Nuclear Equipment Test Engineer Relationship Specialty Start Date End Date Malachi Dumont MD [address] [place] [address] PCP - General Family Medicine 09/12/22 Shannan Guthrie MD [address] [place] [address] Home Care Provider Orthopedics 12/05/22 Josep Gamez, MANAGING COGNITIVE ENGINEER.HEALTH INFORMATION SPECIALIST [address] [place] [address] Referring Orthopedics 12/05/22 Ibis Castillo, PT [address] [facility] [place] [address] Shop Tailor Post Acute Care 12/05/22 Nuclear Equipment Test Engineer Relationship Specialty Start Date End Date Malachi Dumont MD [address] [place] [address] PCP - General Family Medicine 09/12/22 Shannan Guthrie MD [address] [place] [address] Home Care Provider Orthopedics 12/05/22 Josep Gamez, MANAGING COGNITIVE ENGINEER.HEALTH INFORMATION SPECIALIST [address] [place] [address] Referring Orthopedics 12/05/22 Ibis Castillo, PT [address] [place] [address] Shop Tailor Post Acute Care 12/05/22 Nuclear Equipment Test Engineer Relationship Specialty Start Date End Date Malachi Dumont MD [address] [place] [address] PCP - General Family Medicine 09/12/22 Shannan Guthrie MD [address] [place], [place] [phone] Home Care Provider Orthopedics 12/05/22 Josep Gamez, MANAGING COGNITIVE ENGINEER.[address] [address] Referring Orthopedics 12/05/22 Ibis Castillo, PT [address] [place] [address] Shop Tailor Post Acute Care 12/05/22 Nuclear Equipment Test Engineer Relationship Specialty Start Date End Date Malachi Dumont MD [address] [place] [address] PCP - General Family Medicine 09/12/22 Shannan Guthrie MD [address] [place], [place] [phone] Home Care Provider Orthopedics 12/05/22 Josep Gamez, MANAGING COGNITIVE ENGINEER.[address] [address] Referring Orthopedics 12/05/22 Ibis Castillo, PT [address] [place] [address] Shop Tailor Post Acute Care 12/05/22 Nuclear Equipment Test Engineer Relationship Specialty Start Date End Date Malachi Dumont MD [address] [place] [address] PCP - General Family Medicine 09/12/22 Shannan Guthrie MD [address] [place], [place] [phone] Home Care Provider Orthopedics 12/05/22 Josep Gamez APRN.HEALTH INFORMATION SPECIALIST [address] [place] [id number] Referring Orthopedics 12/05/22 Ibis Castillo, PT [address] [facility] [place] [address] Shop T[employer]or Post Acute Care 12/05/22 Nuclear Equipment Test Engineer Relationship Specialty Start Date End Date Malachi Dumont MD [address] [place], [place] [id number] PCP - General Family Medicine 09/12/22 Shannan Guthrie MD [address] [place] [address] Home Care Provider Orthopedics 12/05/22 Josep Gamez APRN.HEALTH INFORMATION SPECIALIST [address] [place] [id number] Referring Orthopedics 12/05/22 Ibis Castillo, PT [address] [facility] [place] [address] Shop Tailor Post Acute Care 12/05/22 Nuclear Equipment Test Engineer Relationship Specialty Start Date End Date Malachi Dumont MD [address] [place] [address] PCP - General Family Medicine 09/12/22 Shannan Guthrie MD [address] [place] [address] Home Care Provider Orthopedics 12/05/22 Josep Gamez APRN.HEALTH INFORMATION SPECIALIST [address] [place] [id number] Referring Orthopedics 12/05/22 Ibis Castillo, PT [address] [place], [place] [id number] Shop Tailor Post Acute Care 12/05/22 Nuclear Equipment Test Engineer Relationship Specialty Start Date End Date Malachi Dumont MD [address] [place], [place] [id number] PCP - General Family Medicine 09/12/22 Shannan Guthrie MD [address] [place] [address] Home Care Provider Orthopedics 12/05/22 Josep Gamze APRN.[facility] [address] [facility], [address] [place] [phone] Referring Orthopedics 12/05/22 Ibis Castillo, PT [address] [place] [address] Shop Tailor Post Acute Care 12/05/22 Nuclear Equipment Test Engineer Relationship Specialty Start Date End Date Malachi Dumont MD [address] [place], [place] [id number] PCP - General Family Medicine 09/12/22 (unrecognized sect ion and content) No Status Records FoundNo Status Records Found INFORMATION SOURCE (unrecogn ized section and content) DATE CREATED AUTHOR AUTHOR'S ORGANIZ ATION 03/08/2023 [facility] FOR RECORDS PERTAINING TO PATIENTS WHO ARE OR HAVE BEEN ENROLLED IN A CHEMICAL DEPENDENCY/SUBSTANCEABUSE PROGRAM, SOME INFORMATION MAY BE OMITTED. This clinical summary was aggregated from multiple sources. Caution should be exercised in using it in the provision of clinical care. This summary normalizes information from multiple sources, and as a consequence, information in this document may materially change the coding, format and clinical context of patient data. In addition, data may be omitted in some cases. CLINICAL DECISIONS SHOULD BE BASED ON THE PRIMARY CLINICAL RECORDS. [facility]. provides no warranty or guarantee of the accuracy or completeness of information in this document.
== END | disposition home or self-care (01) ==
LOC: LAB 11:41
PROVIDERS: PCP Family Medicine; Visit Provider Family Medicine
DX: R05.9 Cough, unspecified (principal)
CPT/HCPCS: 87070; 87205

== ENCOUNTER → 2025-02-24 | Outpatient (CLI) | payer SELFPAY ==
[2025-02-24 12:27] LABS: AST(SGOT) 29 U/L (<=37); Alanine Aminotransfer ALT/SGPT 24 U/L (<=46); Albumin, Serum 4.3 g/dL (3.4-4.8); Alkaline Phosphatase 67 U/L (40-129); Bilirubin, Direct < 0.08 mg/dL (0.00-0.30); Cholesterol 152 mg/dL (<=200); Globulin 2.4 g/dL (2.2-4.2); High Density Lipoprotein 56 mg/dL; Low Density Lipoprotein Calc. 77 mg/dL; Protein, Total 6.8 g/dL (5.9-8.4); Total Bilirubin 0.32 mg/dL (0.00-1.30); Triglycerides 96 mg/dL; Very Low Density Lipoprotein 19 mg/dL (5-40); cholesterol:hdl ratio screen 2.72
== END | disposition home or self-care (01) ==
PROVIDERS: PCP Family Medicine; Referring Provider Internal Medicine Cardiovascular Disease; Visit Provider Internal Medicine Cardiovascular Disease
DX: E78.2 Mixed hyperlipidemia (principal)
CPT/HCPCS: 36415; 80061; 80076